=== PATIENT | female | born 1930 ===

== ENCOUNTER 2018-04-28 09:24 | Inpatient (IN) | payer MEDICAID, OTHER ==
[2018-04-28 10:41] LABS: BASO # 0.1 K/uL (0.0-0.2); BASO % 0.8 % (0.0-2.0); EOS # 0.2 K/uL (0.0-0.7); EOS % 3.1 % (0.0-4.0); LYMPH # 1.7 K/uL (1.0-4.3); LYMPH % 21.9 % (20.0-40.0); MEAN CELL VOLUME 72.2 fL (81.0-99.0); MEAN CORPUSCULAR HGB CONC 30.4 g/dL (33.0-37.0); MEAN PLATELET VOLUME 8.3 fL (7.2-11.7); MONO # 0.6 K/uL (0.0-0.8); MONO % 7.1 % (0.0-10.0); NEUT # 5.4 K/uL (1.8-7.0); NEUT % 67.1 % (50.0-75.0); NRBC % 0.1 % (0.0-2.0); RBC 4.76 Mil/uL (3.80-5.20)
[2018-04-28 10:51] LABS: ALB/GLOB RATIO 1.2 (1.0-2.1); ALBUMIN 3.5 g/dL (3.5-5.0); ALT/SGPT 44 U/L (9-52); AST/SGOT 29 U/L (14-36); BLOOD UREA NITROGEN 18 mg/dL (7-17); CALCIUM 8.5 mg/dl (8.6-10.4); GFR NON-AFRICAN AMERICAN > 60
[2018-04-28 10:57] LABS: HEMOGLOBIN 10.5 g/dL (11.0-16.0)
[2018-04-28 11:03] LABS: PROTHROMBIN TIME 11.1 SECONDS (9.7-12.2)
--- NOTE | 2018-04-28 11:10 | C.PDOC ---
History Of Present Illness 87 years old female with PMHx of goiter presents to ED for complaints of shortness of breath, high blood pressure and bladder incontinence that began 1 month ago. Patient's [id number], who are at the bedside, are contributing to the HPI. Patient denies chest pain, syncope, dizziness, palpitations, fever, chills, cough, n/v, abd pain. Family states patient has had a goiter since childhood "that has never given her any problems". [place] the [place]. Patient has been non-complaint with her medication (bystolic). Denies history of heart problems or any other physical complaints. Time Seen by Provider: 04/28/18 09:43 Chief Complaint (Nursing): High Blood Pressure History Per: Patient History/Exam Limitations: no limitations Onset/Duration Of Symptoms: Days Current Symptoms Are (Timing): Still Present Current Respiratory Medications: See Home Med List Recent travel outside of the [place]: No Past Medical History Reviewed: Historical Data, Nursing Documentation, Vital Signs Vital Signs: Last Vital Signs Temp 98.4 F 04/28/18 09:50 Pulse 95 H 04/28/18 10:56 Resp 20 04/28/18 09:50 BP 137/83 04/28/18 10:56 Pulse Ox 99 04/28/18 10:56 - Medical History PMH: HTN Surgical History: No Surg Hx Family History: States: No Known Family Hx - Social History Hx Alcohol Use: No Hx Substance Use: No - Immunization History Hx Tetanus Toxoid Vaccination: No Hx Influenza Vaccination: No Hx Pneumococcal Vaccination: No Review Of Systems Except As Marked, All Systems Reviewed And Found Negative. Respiratory: Positive for: Shortness of Breath Genitourinary: Positive for: Incontinence Physical Exam - Physical Exam Appears: Non-toxic, No Acute Distress Skin: Normal Color, Warm, Dry, No Rash Head: Atraumatic, Normacephalic Eye(s): bilateral: Normal Inspection, PERRL, EOMI Oral Mucosa: Moist Throat: Other (Goiter. No Thyroid bruit. ) Neck: Normal ROM, Supple Chest: Symmetrical, No Tenderness Cardiovascular: Rhythm Irregular (Tachycardic ) Respiratory: No Rales, No Rhonchi, No Wheezing, Other (Crackles at bases) Gastrointestinal/Abdominal: Soft, No Tenderness Extremity: Normal ROM, Pedal Edema Extremity: Bilateral: Normal ROM Pulses: Left Radial: Normal, Right Radial: Normal Neurological/Psych: Oriented x3, Normal Motor (5/5 strength ), Normal Sensation, Other (No focal deficits ) ED Course And Treatment - Laboratory Results Result Diagrams: 04/29/18 06:28 04/29/18 06:28 Lab Results: PT 11.1 SECONDS (9.7-12.2) 04/28/18 10:30 INR 1.0 04/28/18 10:30 APTT 26 SECONDS (21-34) 04/28/18 10:30 Total Bilirubin 0.8 mg/dL (0.2-1.3) 04/28/18 10:30 AST 29 U/L (14-36) 04/28/18 10:30 ALT 44 U/L (9-52) 04/28/18 10:30 Alkaline Phosphatase 98 U/L (38-126) 04/28/18 10:30 Total Protein 6.5 g/dL (6.3-8.3) 04/28/18 10:30 Albumin 3.5 g/dL (3.5-5.0) 04/28/18 10:30 Globulin 3.0 gm/dL (2.2-3.9) 04/28/18 10:30 Albumin/Globulin Ratio 1.2 (1.0-2.1) 04/28/18 10:30 Interpretation Of ECG: Atrial fibrillation at 102bpm. RVR. Normal intervals. T- wave inversion in lateral leads. O2 Sat by Pulse Oximetry: 99 (RA) Pulse Ox Interpretation: Normal - Other Rad CXR X-Ray: Viewed By Me, Read By Radiologist Interpretation: HISTORY: chest pain. COMPARISON: None available. TECHNIQUE: Chest, one view. FINDINGS: Examination limited by habitus and hypoinflation. Cardiomegaly. Numerous coarse calcifications evident in the soft tissues of the right neck and bilateral axilla. Additionally calculus calcifications are noted in the right lower neck/lung apex and right mediastinum. Right paratracheal mass is not excluded. Small right pleural effusion and associated consolidation. Mild pulmonary venous congestion. No definite pneumothorax. Please note that chest x-ray has limited sensitivity for the detection of pulmonary masses. Degenerative changes of the spine. Impression: Cardiomegaly. Numerous coarse calcifications evident in the soft tissues of the right neck and bilateral axilla. Additionally calculus calcifications are noted in the right lower neck/lung apex and right mediastinum. Right paratracheal mass is not excluded. Correlation with prior outside imaging recommended if available. CT of the chest with IV contrast suggested for further evaluation if indicated. Small right pleural effusion and associated consolidation. Mild pulmonary venous congestion. - CT Scan/US CT Chest Other Rad Studies (CT/US): Read By Radiologist, Radiology Report Reviewed CT/US Interpretation: IMPRESSION: No evidence of acute central pulmonary embolus. There is reflux of contrast material in the to the intrahepatic IVC and hepatic veins; rule out right heart strain. Slight dilatation right main pulmonary artery. Marked cardiomegaly. There is a moderate large right-sided effusion with atelectasis seen in the right lung base and middle lobe. Trace left-sided effusion. Spiculated pleural-based nodular density left lung apex with additional spiculated nodular density right lung apex with several additional small nodules. Possibility of underlying neoplasm not excluded. Consider follow-up PET-CT scan or biopsy for further evaluation. Markedly enlarged heterogeneous thyroid gland which results in compressive effects on the upper trachea as described. While these findings probably represent a large thyroid quarter, the possibility of underlying thyroid malignancy not excluded. Clinical correlation recommended. Medical Decision Making Medical Decision Making: Plan: * Cardizem * Blood work * EKG * CXR * Urinalysis O2 via nasal cannula EKG: * A-Fib with RBR at 124 bpm * Normal QRS * Normal QT * T wave inversions in lateral leads * No ST elevations Progress: Heart rate is 95 bpm after cardizem. TSA .17 Disposition Counseled Patient/Family Regarding: Studies Performed, Diagnosis - Disposition Disposition: HOSPITALIZED Disposition Time: 16:00 Condition: STABLE - POA Present On Arrival: None - Clinical Impression Clinical Impression: Thyroid goiter, Multiple lung nodules on CT, Dyspnea, Atrial fibrillation with RVR, Anemia - Scribe Statement The provider has reviewed the documentation as recorded by the Eva Garza All medical record entries made by the Sudhaibhardik were at my direction and personally dictated by me. I have reviewed the chart and agree that the record accurately reflects my personal performance of the history, physical exam, medic al decision making, and the department course for this patient. I have also personally directed, reviewed, and agree with the discharge instructions and disposition.
[2018-04-28 11:17] LABS: B-TYPE NATRIURETIC PEPTIDE 1190 pg/mL (0-900)
--- NOTE | 2018-04-28 11:21 | RAD ---
HISTORY: chest pain COMPARISON: None available TECHNIQUE: Chest, one view. FINDINGS: Examination limited by habitus and hypoinflation. Cardiomegaly. Numerous coarse calcifications evident in the soft tissues of the right neck and bilateral axilla. Additionally calculus calcifications are noted in the right lower neck/lung apex and right mediastinum. Right paratracheal mass is not excluded. Small right pleural effusion and associated consolidation. Mild pulmonary venous congestion. No definite pneumothorax. Please note that chest x-ray has limited sensitivity for the detection of pulmonary masses. Degenerative changes of the spine. Impression: Cardiomegaly. Numerous coarse calcifications evident in the soft tissues of the right neck and bilateral axilla. Additionally calculus calcifications are noted in the right lower neck/lung apex and right mediastinum. Right paratracheal mass is not excluded. Correlation with prior outside imaging recommended if available. CT of the chest with IV contrast suggested for further evaluation if indicated. Small right pleural effusion and associated consolidation. Mild pulmonary venous congestion.
[2018-04-28 11:55] LABS: SQUAMOUS EPITHIAL < 1 /hpf (0-5); URINE BACTERIA RARE (<OCC); URINE BILIRUBIN NEGATIVE (NEGATIVE); URINE BLOOD NEGATIVE (NEGATIVE); URINE CLARITY Clear (Clear); URINE COLOR Straw (YELLOW); URINE GLUCOSE (UA) NORMAL (Normal); URINE LEUKOCYTE ESTERASE 2+ Leu/uL (Negative); URINE PROTEIN NEGATIVE (NEGATIVE); URINE UROBILINOGEN NORMAL mg/dL (0.2-1.0)
[2018-04-28] MEDS ORDERED: Iodixanol 320 MG/ML 100 ML BOTTLE IV ONE (12:45)
--- NOTE | 2018-04-28 15:22 | CT ---
Date of service: 04/28/2018 PROCEDURE: CT Chest with contrast (Pulmonary Angiogram) HISTORY: SOB-elevated D-dimer COMPARISON: Made with chest radiograph 04/28/2017 obtained earlier same day. TECHNIQUE: Axial computed tomography images were obtained of the chest in the pulmonary arterial phase of enhancement. Coronal and sagittal reformatted images were created and reviewed. Intravenous contrast dose: 100 cc Visipaque 320 contrast material. Radiation dose: Total exam DLP = 576.68 mGy-cm. This CT exam was performed using one or more of the following dose reduction techniques: Automated exposure control, adjustment of the mA and/or kV according to patient size, and/or use of iterative reconstruction technique. FINDINGS: PULMONARY ARTERIES: The visualized pulmonary trunk, right and left main, lobar, segmental and proximal subsegmental branches of the pulmonary arteries are well opacified with no definitive filling defects seen to suggest acute central pulmonary embolus. Pulmonary trunk measures approximately 3.5 cm... There is mild localized dilatation of the mid aspect of the right main pulmonary artery which measures approximately 3.0 cm.. There is opacification of the IVC and hepatic veins; rule out right heart strain and pulmonary arterial hypertension. AORTA: No acute findings. No thoracic aortic aneurysm. Ascending thoracic aorta measures approximately 3.7 cm and descending thoracic aorta measures approximately 0.6 cm. Mild aortic atherosclerotic calcification or mural plaque present. LUNGS: As mentioned above, moderately large right-sided effusion associated with atelectasis in the right lung base and right middle lobe.. Minimal atelectasis-scarring changes left lung base. In addition, there is a localized nodular area of pleural thickening extends into the posterior aspect left lung apex with spiculated borders. Findings likely postinflammatory however the possibility of a scar carcinoma not excluded. Clinical correlation recommended.. There is a smaller nodular spiculated opacity in the right posterior lung apex associate with a tiny calcification. Additional small approximately 5 mm nodule right anterior lung apex which also exhibits spiculated borders. A 3rd 3.9 mm nodule located between these the 2 aforementioned lesions also present.. Follow-up biopsy or PET-CT scan if further evaluation is required to exclude neoplasm. There also appears to be a few small calcifications right lung base bordering the aforementioned hiatal hernia. These foci could be within the adjacent lung parenchyma and represent calcified granulomata however hyperdense lesions within the lumen of the stomach not excluded. PLEURA: There is a moderately large right sided pleural effusion.. Trace left-sided effusion. HEART: Heart is markedly enlarged. No significant no significant pericardial effusion. LYMPH NODES: There are multiple calcified mediastinal and hilar lymph nodes. The upper trachea is compressed and posterolaterally displaced to the left markedly enlarged heterogeneous thyroid gland that contains multiple ill-defined nodules exhibiting mixed hyperdense and low-density changes and scattered punctate and coarse calcifications. Possibility of thyroid carcinoma must be considered. Clinical correlation recommended. The mid and lower trachea midline and patent with no large central endoluminal lesions. There is a moderately large hiatal hernia with wall thickening of the distal esophagus likely due to protrusion of gastric mucosa however esophagitis or other intrinsic/invasive wall lesion not excluded. BONES, CHEST WALL: Minor multilevel degenerative spondylosis of the lower cervical thoracic and upper lumbar spine OTHER FINDINGS: Small calcification superior aspect right lobe liver. Hyperdense material is present within the gallbladder possibly representing hyperdense sludge or gravel. Follow-up gallbladder ultrasound could be performed for further evaluation if necessary There is a prominent approximately 3.5 x 2.6 cm left-sided parapelvic renal cyst. IMPRESSION: No evidence of acute central pulmonary embolus. There is reflux of contrast material in the to the intrahepatic IVC and hepatic veins; rule out right heart strain. Slight dilatation right main pulmonary artery. Marked cardiomegaly. There is a moderate large right-sided effusion with atelectasis seen in the right lung base and middle lobe. Trace left-sided effusion. Spiculated pleural-based nodular density left lung apex with additional spiculated nodular density right lung apex with several additional small nodules. Possibility of underlying neoplasm not excluded. Consider follow-up PET-CT scan or biopsy for further evaluation. Markedly enlarged heterogeneous thyroid gland which results in compressive effects on the upper trachea as described. While these findings probably represent a large thyroid quarter, the possibility of underlying thyroid malignancy not excluded. Clinical correlation recommended.
--- NOTE | 2018-04-28 16:04 | CARD ---
APPROVED REPORT Date of service: 04/28/2018 EKG Measurement Heart [id number] <Conclusion> Atrial fibrillation with rapid ventricular response Minimal voltage criteria for LVH, may be normal variant ST & T wave abnormality, consider lateral ischemia Abnormal ECG
--- NOTE | 2018-04-28 16:09 | CP.PCM.HP ---
<Crow Kemp - Last Filed: 04/28/18 16:54> History of Present Illness - History of Present Illness History of Present Illness: Crow Kemp PGY1 H&P for Dr. Fatima Pt is an 87yo [place] F with PMH HTN and thyroid goiter who presents to ED with shortness of breath for the past 2 weeks. She is with daughter at bedside who is translating. Daughter reports pt has been short of breath for 2 weeks, and it has gotten progressively worse. She reports shortness of breath at rest and with walking. She reports palptiations. She denies chest pain, dizziness, or loss of consciousness. She does report associated intermittent sweating. She denies weight loss, hair loss, diarrhea. She denies nausea, vomiting, dysuria. Daughter reports that pt lives at home with her and can perform ADLs on her own. She ambulates without difficulty at home. Daughter denies previous history of arrythmia in the patient PMH: HTN, thyroid goiter. SxH: denies SocH: denies tobacco, etoh, or recreational drug use FamH: denies Meds: bystolic 10mg BID, non compliant Allergies: NKDA PMD: Beny Present on Admission - Present on Admission Any Indicators Present on Admission: No Review of Systems - Review of Systems Review of Systems: as per HPI Past Patient History - Past Social History Smoking Status: Never Smoked - CARDIAC Hx Hypertension: Yes - PSYCHIATRIC Hx Substance Use: No - SURGICAL HISTORY Hx Surgeries: No - ANESTHESIA Hx Anesthesia: No Meds Allergies/Adverse Reactions: Allergies Allergy/AdvReac Type Severity Reaction Status Date / Time No Known Allergies Allergy Verified 04/28/18 10:06 Physical Exam - Constitutional Appears: Well, No Acute Distress - Head Exam Head Exam: ATRAUMATIC, NORMOCEPHALIC - Eye Exam Eye Exam: EOMI, PERRL Pupil Exam: NORMAL ACCOMODATION - ENT Exam ENT Exam: Mucous Membranes Moist - Neck Exam Neck exam: Positive for: Thyromegaly Additional comments: large goiter in anterior neck. non tender - Respiratory Exam Respiratory Exam: Decreased Breath Sounds, Clear to Auscultation Bilateral, NORMAL BREATHING PATTERN. absent: Rales, Rhonchi, Wheezes - Cardiovascular Exam Cardiovascular Exam: Irregular Rhythm, +S1, +S2, +S4. absent: Gallop, Rubs, Systolic Murmur - GI/Abdominal Exam GI & Abdominal Exam: Normal Bowel Sounds, Soft. absent: Distended, Firm, Tenderness - Extremities Exam Extremities exam: Positive for: normal inspection, pedal pulses present. Negative for: joint swelling, pedal edema, tenderness - Neurological Exam Neurological exam: Alert, CN II-XII Intact, Oriented x3, Reflexes Normal - Skin Skin Exam: Normal Color Results - Vital Signs Recent Vital Signs: Last Vital Signs Temp 98.4 F 04/28/18 09:50 Pulse 110 H 04/28/18 12:28 Resp 20 04/28/18 09:50 BP 140/101 H 04/28/18 12:28 Pulse Ox 99 04/28/18 15:23 - Labs Result Diagrams: 04/28/18 10:30 04/28/18 10:30 Labs: Laboratory Results - last 24 hr 04/28/18 04/28/18 04/28/18 10:30 10:30 10:30 WBC 8.0 RBC 4.76 Hgb 10.5 L Hct 34.4 MCV 72.2 L MCH 22.0 L MCHC 30.4 L RDW 18.0 H Plt Count 201 MPV 8.3 Neut % (Auto) 67.1 Lymph % (Auto) 21.9 [place] % (Auto) 7.1 Eos % (Auto) 3.1 Baso % (Auto) 0.8 Neut # (Auto) 5.4 Lymph # (Auto) 1.7 [place] # (Auto) 0.6 Eos # (Auto) 0.2 Baso # (Auto) 0.1 PT 11.1 INR 1.0 APTT 26 D-Dimer, Quantitative 936 H Sodium 139 Potassium 4.0 Chloride 102 Carbon Dioxide 30 Anion Gap 10 BUN 18 H Creatinine 0.5 L Est GFR ( Amer) > 60 Est GFR (Non-Af Amer) > 60 Random Glucose 104 Calcium 8.5 L Total Bilirubin 0.8 AST 29 ALT 44 Alkaline Phosphatase 98 Troponin I 0.0640 NT-Pro-B Natriuret Pep 1190 H Total Protein 6.5 Albumin 3.5 Globulin 3.0 Albumin/Globulin Ratio 1.2 TSH 3rd Generation 0.17 L Urine Color Urine Clarity Urine pH Ur Specific Mears Urine Protein Urine Glucose (UA) Urine Ketones Urine Blood Urine Nitrate Urine Bilirubin Urine Urobilinogen Ur Leukocyte Esterase Urine WBC (Auto) Urine RBC (Auto) Ur Squamous Epith Cells Urine Bacteria Urine Yeast (Budding) 04/28/18 11:20 WBC RBC Hgb Hct MCV MCH MCHC RDW Plt Count MPV Neut % (Auto) Lymph % (Auto) [place] % (Auto) Eos % (Auto) Baso % (Auto) Neut # (Auto) Lymph # (Auto) [place] # (Auto) Eos # (Auto) Baso # (Auto) PT INR APTT D-Dimer, Quantitative Sodium Potassium Chloride Carbon Dioxide Anion Gap BUN Creatinine Est GFR ( Amer) Est GFR (Non-Af Amer) Random Glucose Calcium Total Bilirubin AST ALT Alkaline Phosphatase Troponin I NT-Pro-B Natriuret Pep Total Protein Albumin Globulin Albumin/Globulin Ratio TSH 3rd Generation Urine Color Straw Urine Clarity Clear Urine pH 6.0 Ur Specific Mears 1.010 Urine Protein Negative Urine Glucose (UA) Normal Urine Ketones Negative Urine Blood Negative Urine Nitrate Negative Urine Bilirubin Negative Urine Urobilinogen Normal Ur Leukocyte Esterase 2+ H Urine WBC (Auto) 37 H Urine RBC (Auto) 2 Ur Squamous Epith Cells < 1 Urine Bacteria Rare Urine Yeast (Budding) Occ H Assessment & Plan - Assessment and Plan (Free Text) Assessment: 87yo [place] F with PMH HTN and thyroid goiter who presents to ED with shortness of breath for the past 2 weeks. Pt found to have rapid A.fib with low TSH. Pt admitted to ICU for new onset A.fib and thyroid goiter. Plan: Rapid A.fib - denies previous history - EKG: a. fib with RVR @124 - likely secondary to hyperthyroid - admit to tele - trop negative - cardizem drip @5 mg/hr - heparin drip low dose - lasix 40mg IVP stat - f/u rpt EKGs - f/u ECHO: suspect concerning findings for pericardial effusion - Cardio consulted, Dr. Vaibhav meza appreciated Thyroid Goiter - TSH 0.17 - f/u T3, free T4 - f/u rpt TSH - f/u US thyroid - methimazole 10mg PO TID - hydrocortisone 100mg IV stat and 50mg IV q8h as pt received contrast in setting of hyperthyroid - Endo consulted, Dr. Paulie meza appreciated Spiculated Masses in Lungs - pt with shortness of breath - CT angio: no PE. R-sided effusion with/ atelectasis. Spiculated pleural nodularity of L lung apex and R lung apex. - CXR: cardiomegaly. numerous coarse calcifications in R neck and b/l axilla. R paratracheal mass. - Pulm consulted, Dr. Wilfredo meza appreciated - Palliative care consulted, recs appreciated Elevated D-dimer - D-dimer 936 - BNP 1190 - trop negative - pt with shortness of breath - CT angio: no PE. R-sided effusion with/ atelectasis. Spiculated pleural nodularity of L lung apex and R lung apex. - Pulm consulted, Dr. Wilfredo meza appreciated PPX: GI: pepcid 20 BID DVT: heparin drip low dose HHD Pt seen and case reviewed with Dr. Fatima <Frankie Fatima - Last Filed: 04/28/18 17:36> Results - Vital Signs Recent Vital Signs: Last Vital Signs Temp 98.4 F 04/28/18 09:50 Pulse 110 H 04/28/18 12:28 Resp 20 04/28/18 09:50 BP 140/101 H 04/28/18 12:28 Pulse Ox 99 04/28/18 16:05 - Labs Result Diagrams: 04/28/18 10:30 04/28/18 10:30 Labs: Laboratory Results - last 24 hr 04/28/18 04/28/18 04/28/18 10:30 10:30 10:30 WBC 8.0 RBC 4.76 Hgb 10.5 L Hct 34.4 MCV 72.2 L MCH 22.0 L MCHC 30.4 L RDW 18.0 H Plt Count 201 MPV 8.3 Neut % (Auto) 67.1 Lymph % (Auto) 21.9 [place] % (Auto) 7.1 Eos % (Auto) 3.1 Baso % (Auto) 0.8 Neut # (Auto) 5.4 Lymph # (Auto) 1.7 [place] # (Auto) 0.6 Eos # (Auto) 0.2 Baso # (Auto) 0.1 PT 11.1 INR 1.0 APTT 26 D-Dimer, Quantitative 936 H Sodium 139 Potassium 4.0 Chloride 102 Carbon Dioxide 30 Anion Gap 10 BUN 18 H Creatinine 0.5 L Est GFR ( Amer) > 60 Est GFR (Non-Af Amer) > 60 Random Glucose 104 Calcium 8.5 L Total Bilirubin 0.8 AST 29 ALT 44 Alkaline Phosphatase 98 Troponin I 0.0640 NT-Pro-B Natriuret Pep 1190 H Total Protein 6.5 Albumin 3.5 Globulin 3.0 Albumin/Globulin Ratio 1.2 TSH 3rd Generation 0.17 L Urine Color Urine Clarity Urine pH Ur Specific Mears Urine Protein Urine Glucose (UA) Urine Ketones Urine Blood Urine Nitrate Urine Bilirubin Urine Urobilinogen Ur Leukocyte Esterase Urine WBC (Auto) Urine RBC (Auto) Ur Squamous Epith Cells Urine Bacteria Urine Yeast (Budding) 04/28/18 11:20 WBC RBC Hgb Hct MCV MCH MCHC RDW Plt Count MPV Neut % (Auto) Lymph % (Auto) [place] % (Auto) Eos % (Auto) Baso % (Auto) Neut # (Auto) Lymph # (Auto) [place] # (Auto) Eos # (Auto) Baso # (Auto) PT INR APTT D-Dimer, Quantitative Sodium Potassium Chloride Carbon Dioxide Anion Gap BUN Creatinine Est GFR ( Amer) Est GFR (Non-Af Amer) Random Glucose Calcium Total Bilirubin AST ALT Alkaline Phosphatase Troponin I NT-Pro-B Natriuret Pep Total Protein Albumin Globulin Albumin/Globulin Ratio TSH 3rd Generation Urine Color Straw Urine Clarity Clear Urine pH 6.0 Ur Specific Mears 1.010 Urine Protein Negative Urine Glucose (UA) Normal Urine Ketones Negative Urine Blood Negative Urine Nitrate Negative Urine Bilirubin Negative Urine Urobilinogen Normal Ur Leukocyte Esterase 2+ H Urine WBC (Auto) 37 H Urine RBC (Auto) 2 Ur Squamous Epith Cells < 1 Urine Bacteria Rare Urine Yeast (Budding) Occ H Attending/Attestation - Attestation I have personally seen and examined this patient.: Yes I have fully participated in the care of the patient.: Yes I have reviewed all pertinent clinical information: Yes Notes (Text): 04/28/18 17:26 Medical attending: Patient was seen and examined by me. Reviewed the above note by the resident This is a patient who family says has had this enlarged neck mass for about 10 years. She comes to the hospital short of breath. The only known history is that she has HTN. She is from [place] comes here 4 months prior There are some very concerning lab work and physical exam findings for the patient She has a goiter on exam, also TSH was low as well. We are still pending a T3 and T4. Patient was found to have rapid atrial fibrillation in ER. She received IV contrast and given our concern for hyperthyroidism my immediate concern is that she may have complications from the iodine load this later tonight. I spoke with cardiology as well as endocrinology and at this time will try hydrocortisone IV Q8hrs to prevent hyperthyroid ism from worsening. Also start on methimazole now and get a thyroid ultrasound. With reguards to her rapid atrial fibrillation - the patient will be on heparin ggt as well as cardizem ggt. I spoke with cardiology and we are ordering an echo since there are concerning cardiomegaly findings. Lasix 20 mg IV for the time being. CT scan was negative for PE, however also shows concerning bilateral apex spiculated areas that could be malignant. I spoke with the grandaughter at bedside as well as the patient's son and explained to them that considering her lab work findings and imaging that the patient's condition could worsen very quickly. It took me a while to get it across to them the seriousness of the situation. Spoke with ICU as well and they are evaluating as well. Frankie Fatima
[2018-04-28] MEDS ORDERED: MethylPREDNISolone 40 mg Vial IVP SCH (16:30)
[2018-04-28] MEDS ORDERED: Heparin25000 units/250ml 1/2NS 25,000 UNITS/250 ML BAG IV PRN (17:19)
--- NOTE | 2018-04-28 17:56 | CP.PCM.CON ---
<Disha Craven - Last Filed: 04/28/18 18:06> History of Present Illness - History of Present Illness History of Present Illness: ICU Consult Note for Dr. Ching CC: SOB x 2 weeks HPI: 87 y/o [place] female with PMHx of thyroid goiter and HTN presented to the ED with SOB x 2 weeks associated with palpitations. Patient without any PMHx of cardiac and pulm disease. Nothing like these symptoms have happened before and patient has never been in the ED nor has she ever been hospitalized. Last time she visited primary care physician, Dr. Swan, was 2 months ago. Patient diagnosed with Afib w/ RVR in the ED with HR 124. SOB and palpitations improved in the ED with lasix 20 mg IV x 1 and cardizem drip. Of note, upon questioning about the positive UA for infection, patient's granddaughter added that she has been having increased urinary frequency but not dysuria. Note: Patient's granddaughter assisted with history. Patient does not speak Danish. She also moved from [place] less than a year ago. ROS: as per HPI, otherwise 12 point ROS negative PMHx: as stated above PSH, social hx, FHx: none Meds: on bystolic 10 mg BID but non compliant Allergies: NKDA Past Patient History - Past Social History Smoking Status: Never Smoked - CARDIAC Hx Hypertension: Yes - PSYCHIATRIC Hx Substance Use: No - SURGICAL HISTORY Hx Surgeries: No - ANESTHESIA Hx Anesthesia: No Meds Allergies/Adverse Reactions: Allergies Allergy/AdvReac Type Severity Reaction Status Date / Time No Known Allergies Allergy Verified 04/28/18 10:06 - Medications Medications: Current Medications Famotidine (Pepcid) 20 mg PO BID [facility] Last Admin: 04/28/18 17:39 Dose: 20 mg Furosemide (Lasix) 20 mg IVP DAILY [facility] Hydrocortisone Sodium Succinate (Solu-Cortef) 50 mg IV Q8H [facility] Diltiazem HCl 125 mg/ Dextrose 125 mls @ 5 mls/hr IV .Q24H [facility]; Protocol Last Admin: 04/28/18 17:38 Dose: 5 mg/hr, 5 mls/hr Heparin Sodium/Sodium Chloride (Heparin 25766 Units/250ml 1/2 Normal Saline) 25,000 units in 250 mls @ 9.253 mls/hr IV .Q24H PRN; Protocol PRN Reason: PROTOCOL Last Admin: 04/28/18 17:35 Dose: 12 units/kg/hr, 9.253 mls/hr Ceftriaxone Sodium 1 gm/ (Sodium Chloride) 100 mls @ 100 mls/hr IVPB DAILY [facility]; Protocol Methimazole (Tapazole) 10 mg PO TID [facility] Last Admin: 04/28/18 17:39 Dose: 10 mg Propranolol HCl (Inderal) 20 mg PO TID [facility] Physical Exam - Constitutional Appears: Well, Non-toxic - Head Exam Head Exam: ATRAUMATIC, NORMAL INSPECTION, NORMOCEPHALIC - Eye Exam Eye Exam: EOMI, Normal appearance - Neck Exam Neck exam: Positive for: Thyromegaly (enlarged, non tender thyroid). Negative for: Meningismus, Normal Inspection, Tenderness - Respiratory Exam Respiratory Exam: Rhonchi, Wheezes. absent: Accessory Muscle Use, Clear to Auscultation Bilateral - Cardiovascular Exam Cardiovascular Exam: Irregular Rhythm, Systolic Murmur - GI/Abdominal Exam GI & Abdominal Exam: Normal Bowel Sounds, Soft. absent: Firm, Guarding, Rebound, Tenderness (no suprapubic tenderness, negative CVA tenderness) - Extremities Exam Extremities exam: Positive for: normal capillary refill. Negative for: normal inspection, tenderness Additional comments: bilateral 2+ LE pitting edema - Neurological Exam Additional comments: patient ambulates with cane baseline per granddaughter - Psychiatric Exam Psychiatric exam: Normal Affect, Normal Mood - Skin Skin Exam: Dry, Normal Color, Warm Results - Vital Signs Recent Vital Signs: Last Vital Signs Temp 98.4 F 04/28/18 09:50 Pulse 110 H 04/28/18 12:28 Resp 20 04/28/18 09:50 BP 135/90 04/28/18 17:38 Pulse Ox 99 04/28/18 16:05 - Labs Result Diagrams: 04/28/18 10:30 04/28/18 10:30 Labs: Laboratory Results - last 24 hr 04/28/18 04/28/18 04/28/18 10:30 10:30 10:30 WBC 8.0 RBC 4.76 Hgb 10.5 L Hct 34.4 MCV 72.2 L MCH 22.0 L MCHC 30.4 L RDW 18.0 H Plt Count 201 MPV 8.3 Neut % (Auto) 67.1 Lymph % (Auto) 21.9 [place] % (Auto) 7.1 Eos % (Auto) 3.1 Baso % (Auto) 0.8 Neut # (Auto) 5.4 Lymph # (Auto) 1.7 [place] # (Auto) 0.6 Eos # (Auto) 0.2 Baso # (Auto) 0.1 PT 11.1 INR 1.0 APTT 26 D-Dimer, Quantitative 936 H Sodium 139 Potassium 4.0 Chloride 102 Carbon Dioxide 30 Anion Gap 10 BUN 18 H Creatinine 0.5 L Est GFR ( Amer) > 60 Est GFR (Non-Af Amer) > 60 Random Glucose 104 Calcium 8.5 L Total Bilirubin 0.8 AST 29 ALT 44 Alkaline Phosphatase 98 Troponin I 0.0640 NT-Pro-B Natriuret Pep 1190 H Total Protein 6.5 Albumin 3.5 Globulin 3.0 Albumin/Globulin Ratio 1.2 TSH 3rd Generation 0.17 L Urine Color Urine Clarity Urine pH Ur Specific [place] Urine Protein Urine Glucose (UA) Urine Ketones Urine Blood Urine Nitrate Urine Bilirubin Urine Urobilinogen Ur Leukocyte Esterase Urine WBC (Auto) Urine RBC (Auto) Ur Squamous Epith Cells Urine Bacteria Urine Yeast (Budding) 04/28/18 11:20 WBC RBC Hgb Hct MCV MCH MCHC RDW Plt Count MPV Neut % (Auto) Lymph % (Auto) [place] % (Auto) Eos % (Auto) Baso % (Auto) Neut # (Auto) Lymph # (Auto) [place] # (Auto) Eos # (Auto) Baso # (Auto) PT INR APTT D-Dimer, Quantitative Sodium Potassium Chloride Carbon Dioxide Anion Gap BUN Creatinine Est GFR ( Amer) Est GFR (Non-Af Amer) Random Glucose Calcium Total Bilirubin AST ALT Alkaline Phosphatase Troponin I NT-Pro-B Natriuret Pep Total Protein Albumin Globulin Albumin/Globulin Ratio TSH 3rd Generation Urine Color Straw Urine Clarity Clear Urine pH 6.0 Ur Specific [place] 1.010 Urine Protein Negative Urine Glucose (UA) Normal Urine Ketones Negative Urine Blood Negative Urine Nitrate Negative Urine Bilirubin Negative Urine Urobilinogen Normal Ur Leukocyte Esterase 2+ H Urine WBC (Auto) 37 H Urine RBC (Auto) 2 Ur Squamous Epith Cells < 1 Urine Bacteria Rare Urine Yeast (Budding) Occ H Assessment & Plan - Assessment and Plan (Free Text) Assessment: 87 y/o [place] female with PMHx of thyroid goiter and HTN presented to the ED with SOB and palpitations x 2 weeks. Diagnosed with Afib in the ED and admitted to ICU overnight for observation. neuro -AAO x 3 -no acute issues CV -Afib w/ RVR in ED and EKG 124 bpm. Afib can be 2/2 pre-existing thyroid disorder -currently on cardizem and heparin drip -s/p IV lasix 20 mg x 1 -continue with lasix daily; lasix 40 mg IV BID ordered -patient's signs and symptoms likely 2/2 CHF - will also need to monitor IOs/daily weights closely. BNP elevated at 1190. Trop negative. -f/u ECHO -CT angio: negative for PE however d-dimer slightly elevated 936 (for her age positive d-dimer >860) -cardio consult Dr. Esposito, recs appreciated Pulm -CT angio: pleural nodularity in bilateral apices, CXR: cardiomegaly -patient w/o hx of smoking. Edema, congestion and SOB likely 2/2 HFrEF -pulm consult susana Ochoa appreciated Endo -TSH low 0.17 -f/u T3 and T4 -f/u thyroid US -s/p IV contrast - given hydrocortisone 100 mg IV x 1 -hydrocortisone 50 mg IV q8h daily prescribed already -methimazole 10 mg TID prescribed already -Endo, Dr. Apodaca consulted. Recs appreciated. ID -Currently afebrile and no leukocytosis, continue to monitor -Patient UA with 2+ leuk est, WBC and occ yeast. Upon questioning patient endorses increased urinary frequency -ceftriaxone 1g daily, start today Heme -no acute issues -f/u CBC qAM GI -no acute issues GI ppx: pepcid 20 mg PO BID DVT ppx: therapeutic heparin drip (cardiac) case discussed with Dr. Humza Craven PGY1 <Deja Ching - Last Filed: 04/28/18 20:31> History of Present Illness - History of Present Illness History of Present Illness: Addendum: I spoke to the patient. I seen the patient with resident in the intensive care unit. Also I saw the patient in the emergency room. Patient heart rate is controlled well. I agree with resident note. We will closely monitor the patient for possible thyroid storm. Patient has a goiter large. Patient was given intravenous iodine contrast. We will follow the patient by the ICU team Meds - Medications Medications: Current Medications Acetaminophen (Tylenol 325mg Tab) 650 mg PO Q6 PRN PRN Reason: fever+pain Famotidine (Pepcid) 20 mg PO BID [facility] Last Admin: 04/28/18 17:39 Dose: 20 mg Furosemide (Lasix) 20 mg IVP DAILY [facility] Hydrocortisone Sodium Succinate (Solu-Cortef) 50 mg IV Q8H [facility] Diltiazem HCl 125 mg/ Dextrose 125 mls @ 5 mls/hr IV .Q24H [facility]; Protocol Last Titration: 04/28/18 18:36 Dose: 10 mg/hr, 10 mls/hr Heparin Sodium/Sodium Chloride (Heparin 53357 Units/250ml 1/2 Normal Saline) 25,000 units in 250 mls @ 9.253 mls/hr IV .Q24H PRN; Protocol PRN Reason: PROTOCOL Last Admin: 04/28/18 17:35 Dose: 12 units/kg/hr, 9.253 mls/hr Ceftriaxone Sodium 1 gm/ (Sodium Chloride) 100 mls @ 100 mls/hr IVPB Q24H [facility]; Protocol Last Admin: 04/28/18 19:41 Dose: 100 mls/hr Methimazole (Tapazole) 10 mg PO TID [facility] Last Admin: 04/28/18 17:39 Dose: 10 mg Propranolol HCl (Inderal) 20 mg PO TID [facility] Last Admin: 04/28/18 19:41 Dose: 20 mg Results - Vital Signs Recent Vital Signs: Last Vital Signs Temp 98 F 04/28/18 17:58 Pulse 130 H 04/28/18 17:58 Resp 23 04/28/18 17:58 BP 154/118 H 04/28/18 17:58 Pulse Ox 100 04/28/18 17:58 - Labs Result Diagrams: 04/28/18 10:30 04/28/18 10:30 Labs: Laboratory Results - last 24 hr 04/28/18 04/28/18 04/28/18 10:30 10:30 10:30 WBC 8.0 RBC 4.76 Hgb 10.5 L Hct 34.4 MCV 72.2 L MCH 22.0 L MCHC 30.4 L RDW 18.0 H Plt Count 201 MPV 8.3 Neut % (Auto) 67.1 Lymph % (Auto) 21.9 [place] % (Auto) 7.1 Eos % (Auto) 3.1 Baso % (Auto) 0.8 Neut # (Auto) 5.4 Lymph # (Auto) 1.7 [place] # (Auto) 0.6 Eos # (Auto) 0.2 Baso # (Auto) 0.1 PT 11.1 INR 1.0 APTT 26 D-Dimer, Quantitative 936 H Sodium 139 Potassium 4.0 Chloride 102 Carbon Dioxide 30 Anion Gap 10 BUN 18 H Creatinine 0.5 L Est GFR ( Amer) > 60 Est GFR (Non-Af Amer) > 60 Random Glucose 104 Calcium 8.5 L Total Bilirubin 0.8 AST 29 ALT 44 Alkaline Phosphatase 98 Troponin I 0.0640 NT-Pro-B Natriuret Pep 1190 H Total Protein 6.5 Albumin 3.5 Globulin 3.0 Albumin/Globulin Ratio 1.2 Free T4 Total T3 TSH 3rd Generation 0.17 L Urine Color Urine Clarity Urine pH Ur Specific [place] Urine Protein Urine Glucose (UA) Urine Ketones Urine Blood Urine Nitrate Urine Bilirubin Urine Urobilinogen Ur Leukocyte Esterase Urine WBC (Auto) Urine RBC (Auto) Ur Squamous Epith Cells Urine Bacteria Urine Yeast (Budding) 04/28/18 04/28/18 04/28/18 11:20 17:22 17:22 WBC RBC Hgb Hct MCV MCH MCHC RDW Plt Count MPV Neut % (Auto) Lymph % (Auto) [place] % (Auto) Eos % (Auto) Baso % (Auto) Neut # (Auto) Lymph # (Auto) [place] # (Auto) Eos # (Auto) Baso # (Auto) PT INR APTT D-Dimer, Quantitative Sodium Potassium Chloride Carbon Dioxide Anion Gap BUN Creatinine Est GFR ( Amer) Est GFR (Non-Af Amer) Random Glucose Calcium Total Bilirubin AST ALT Alkaline Phosphatase Troponin I NT-Pro-B Natriuret Pep Total Protein Albumin Globulin Albumin/Globulin Ratio Free T4 1.15 Total T3 1.90 TSH 3rd Generation Urine Color Straw Urine Clarity Clear Urine pH 6.0 Ur Specific [place] 1.010 Urine Protein Negative Urine Glucose (UA) Normal Urine Ketones Negative Urine Blood Negative Urine Nitrate Negative Urine Bilirubin Negative Urine Urobilinogen Normal Ur Leukocyte Esterase 2+ H Urine WBC (Auto) 37 H Urine RBC (Auto) 2 Ur Squamous Epith Cells < 1 Urine Bacteria Rare Urine Yeast (Budding) Occ H
--- NOTE | 2018-04-28 23:44 | CP.PCM.CON ---
Past Patient History - Past Medical History & Family History Past Medical History?: Yes - Past Social History Smoking Status: Never Smoked - CARDIAC Hx Hypertension: Yes - ENDOCRINE/METABOLIC Other/Comment: goiter - MUSCULOSKELETAL/RHEUMATOLOGICAL Hx Falls: No - PSYCHIATRIC Hx Substance Use: No - SURGICAL HISTORY Hx Surgeries: No - ANESTHESIA Hx Anesthesia: No Has any member of the family had a problem w/ anesthesia?: No Meds Allergies/Adverse Reactions: Allergies Allergy/AdvReac Type Severity Reaction Status Date / Time No Known Allergies Allergy Verified 04/28/18 10:06 - Medications Medications: Current Medications Acetaminophen (Tylenol 325mg Tab) 650 mg PO Q6 PRN PRN Reason: fever+pain Famotidine (Pepcid) 20 mg PO BID [facility] Last Admin: 04/28/18 17:39 Dose: 20 mg Furosemide (Lasix) 20 mg IVP DAILY [facility] Hydrocortisone Sodium Succinate (Solu-Cortef) 50 mg IV Q8H [facility] Diltiazem HCl 125 mg/ Dextrose 125 mls @ 5 mls/hr IV .Q24H [facility]; Protocol Last Titration: 04/28/18 18:36 Dose: 10 mg/hr, 10 mls/hr Heparin Sodium/Sodium Chloride (Heparin 02016 Units/250ml 1/2 Normal Saline) 25,000 units in 250 mls @ 9.253 mls/hr IV .Q24H [facility]; Protocol PRN Reason: PROTOCOL Last Admin: 04/28/18 17:35 Dose: 12 units/kg/hr, 9.253 mls/hr Ceftriaxone Sodium 1 gm/ (Sodium Chloride) 100 mls @ 100 mls/hr IVPB Q24H [facility]; Protocol Last Admin: 04/28/18 19:41 Dose: 100 mls/hr Influenza Virus Vaccine (Flucelvax Quad [id number] Syr) 60 mcg IM .ONCE ONE Stop: 04/30/18 10:01 Methimazole (Tapazole) 10 mg PO TID [facility] Last Admin: 04/28/18 17:39 Dose: 10 mg Pneumococcal Polyvalent Vaccine (Pneumovax 23 Vaccine) 0.5 ml IM .ONCE ONE Stop: 04/30/18 10:01 Propranolol HCl (Inderal) 20 mg PO TID [facility] Last Admin: 04/28/18 19:41 Dose: 20 mg Results - Vital Signs Recent Vital Signs: Last Vital Signs Temp 97.9 F 04/28/18 19:30 Pulse 81 04/28/18 22:50 Resp 21 04/28/18 22:50 BP 124/84 04/28/18 22:30 Pulse Ox 96 04/28/18 22:50 - Labs Result Diagrams: 04/28/18 10:30 04/28/18 10:30 Labs: Laboratory Results - last 24 hr 04/28/18 04/28/18 04/28/18 10:30 10:30 10:30 WBC 8.0 RBC 4.76 Hgb 10.5 L Hct 34.4 MCV 72.2 L MCH 22.0 L MCHC 30.4 L RDW 18.0 H Plt Count 201 MPV 8.3 Neut % (Auto) 67.1 Lymph % (Auto) 21.9 [place] % (Auto) 7.1 Eos % (Auto) 3.1 Baso % (Auto) 0.8 Neut # (Auto) 5.4 Lymph # (Auto) 1.7 [place] # (Auto) 0.6 Eos # (Auto) 0.2 Baso # (Auto) 0.1 PT 11.1 INR 1.0 APTT 26 D-Dimer, Quantitative 936 H Sodium 139 Potassium 4.0 Chloride 102 Carbon Dioxide 30 Anion Gap 10 BUN 18 H Creatinine 0.5 L Est GFR ( Amer) > 60 Est GFR (Non-Af Amer) > 60 Random Glucose 104 Calcium 8.5 L Total Bilirubin 0.8 AST 29 ALT 44 Alkaline Phosphatase 98 Troponin I 0.0640 NT-Pro-B Natriuret Pep 1190 H Total Protein 6.5 Albumin 3.5 Globulin 3.0 Albumin/Globulin Ratio 1.2 Free T4 Total T3 TSH 3rd Generation 0.17 L Urine Color Urine Clarity Urine pH Ur Specific [place] Urine Protein Urine Glucose (UA) Urine Ketones Urine Blood Urine Nitrate Urine Bilirubin Urine Urobilinogen Ur Leukocyte Esterase Urine WBC (Auto) Urine RBC (Auto) Ur Squamous Epith Cells Urine Bacteria Urine Yeast (Budding) 04/28/18 04/28/18 04/28/18 11:20 17:22 17:22 WBC RBC Hgb Hct MCV MCH MCHC RDW Plt Count MPV Neut % (Auto) Lymph % (Auto) [place] % (Auto) Eos % (Auto) Baso % (Auto) Neut # (Auto) Lymph # (Auto) [place] # (Auto) Eos # (Auto) Baso # (Auto) PT INR APTT D-Dimer, Quantitative Sodium Potassium Chloride Carbon Dioxide Anion Gap BUN Creatinine Est GFR ( Amer) Est GFR (Non-Af Amer) Random Glucose Calcium Total Bilirubin AST ALT Alkaline Phosphatase Troponin I NT-Pro-B Natriuret Pep Total Protein Albumin Globulin Albumin/Globulin Ratio Free T4 1.15 Total T3 1.90 TSH 3rd Generation Urine Color Straw Urine Clarity Clear Urine pH 6.0 Ur Specific [place] 1.010 Urine Protein Negative Urine Glucose (UA) Normal Urine Ketones Negative Urine Blood Negative Urine Nitrate Negative Urine Bilirubin Negative Urine Urobilinogen Normal Ur Leukocyte Esterase 2+ H Urine WBC (Auto) 37 H Urine RBC (Auto) 2 Ur Squamous Epith Cells < 1 Urine Bacteria Rare Urine Yeast (Budding) Occ H
--- NOTE | 2018-04-29 06:06 | CON ---
DATE: 04/28/2018 ENDOCRINOLOGY CONSULTATION LOCATION: ICU room 12. HISTORY OF PRESENT ILLNESS: This is an 87-year-old female with known history of a multinodular goiter and longstanding hypertension, presenting here with progressive shortness of breath and evaluated to be in congestive heart failure with supervening rapid atrial fibrillation and is now being referred for endocrine evaluation because of abnormal thyroid function studies. PAST MEDICAL HISTORY: As mentioned above, history of hypertension, on Bystolic medications; also a history of multinodular goiter and has not been on any kind of thyroid medication as per the family. FAMILY HISTORY: No known thyroid endocrinopathy. Positive for hypertension and heart disease. SOCIAL HISTORY: The patient has a supportive family. She actually immigrated from [place] and lives with her daughter at this time. No known substance use. REVIEW OF SYSTEMS: Admits to progressive bouts of dizziness and lightheadedness, worse on the day of admission with generalized body weakness and suboptimal energy level. Also admits to marked insomnia and disruptive sleep patterns. Also admits to precordial chest pain with episodic bouts of palpitations and progressive shortness of breath with paroxysmal nocturnal dyspnea. Her oral intake has been variable with nausea, dyspepsia, and hyperdefecation. PHYSICAL EXAMINATION: GENERAL: This is an average-built female, in no apparent distress. VITAL SIGNS: With a blood pressure of 160/100, pulse of 110 beats per minute and irregular, temperature 98, respirations 20. Height is 5 feet 5 inches. Weight is 170 pounds. HEENT: Head is normocephalic. Eyes anicteric with pink conjunctivae. Funduscopy is not possible at this time. Ears, nose, and throat otherwise normal. NECK: Supple. Thyroid gland shows nodular thyromegaly, which is firm and nontender of moderate dimension as noted. HEART: Hyperdynamic precordium. S1 and S2 are rapid and irregular. LUNGS: Show scattered rhonchi. ABDOMEN: Flat, soft with positive bowel sounds. EXTREMITIES: No peripheral edema. Pulses are +2 bilaterally. LABORATORY DATA: TSH is 0.17 with free T4 of 1.15. Chemistries: BUN of 18, sodium 139, potassium 4, chloride 102, CO2 of 30, glucose 104, creatinine 0.5. ProBNP is 1190. ASSESSMENT: This is an 87-year-old female with overt thyrotoxicosis noted both historically, clinically and biochemically with an underlying multinodular goiter, presenting here with congestive heart failure and supervening rapid atrial fibrillation as noted thereof. PLAN OF MANAGEMENT: We will go ahead and initiate medical therapy with given as 10 mg p.o. t.i.d. as ordered. We will empirically start her also with IV steroids, which will also inhibit the T4 to T3 conversion as noted. We will obtain serial thyroid studies and adjust the dose regimen accordingly. A total T4 or thyroxine level is more accurate marker to assess the degree of hyperthyroidism. We will obtain serial chemistries and supplement accordingly as needed. We will also obtain a thyroid-stimulating immunoglobulin which will confirm and/or indicate the presence of underlying autoimmune thyroiditis, and we will also add a thyroid peroxidase antibody as ordered. A thyroid ultrasound has also been ordered which will fully delineate the thyroid lobe dimensions. We will follow and advise accordingly. Nicole Apodaca MD
[2018-04-29 06:48] LABS: BASO % 0.1 % (0.0-2.0); HEMOGLOBIN 9.8 g/dL (11.0-16.0); LYMPH # 0.6 K/uL (1.0-4.3); LYMPH % 10.6 % (20.0-40.0); MEAN CELL VOLUME 71.6 fL (81.0-99.0); MEAN CORPUSCULAR HEMOGLOBIN 21.4 pg (27.0-31.0); MEAN PLATELET VOLUME 9.1 fL (7.2-11.7); MONO # 0.1 K/uL (0.0-0.8); MONO % 1.2 % (0.0-10.0); NEUT % 88.1 % (50.0-75.0); NRBC % 0.2 % (0.0-2.0); RBC 4.57 Mil/uL (3.80-5.20); WHITE BLOOD COUNT 5.7 K/uL (4.8-10.8)
[2018-04-29 07:13] LABS: IRON 20 ug/dL (37-170)
[2018-04-29 07:16] LABS: ALB/GLOB RATIO 1.2 (1.0-2.1); ALBUMIN 3.2 g/dL (3.5-5.0); ALT/SGPT 34 U/L (9-52); AST/SGOT 31 U/L (14-36); BLOOD UREA NITROGEN 19 mg/dL (7-17); CALCIUM 8.3 mg/dl (8.6-10.4); GFR NON-AFRICAN AMERICAN > 60
[2018-04-29 07:22] LABS: % IRON SATURATION 5 (20-55); TOTAL IRON BINDING CAPACITY 393 ug/dL (250-450)
[2018-04-29 07:33] LABS: T4 7.77 ug/dL (5.5-11.0)
[2018-04-29 07:49] LABS: FERRITIN 10.9 ng/mL
--- NOTE | 2018-04-29 09:26 | CP.PCM.PN ---
Subjective - Date & Time of Evaluation Date of Evaluation: 04/29/18 Time of Evaluation: 09:00 - Subjective Subjective: Patient was angry and yelling at family members at bedside. She was not cooperative with me try to do examination. As mentioned previously this is an 87 year old female who came with shortness of breath and found to have Atrial fibrillation with RVR. The patient was found to have a low TSH and today has an even lower TSH. There is a large mass over neck with some areas being very solid on palpation and other areas soft. Imaging also shows there is spiculated nodules/lesions on the lungs as well as cardiomegaly. She remains on heparin ggt this morning as well as cardizem ggt. On application packager the HR is in the 90s irregularly irregular. She just had the thyroid U/S this morning. Pending echo at the moment. Because the patient received IV contrast in the ER given potential thyroid disease - she has already been getting IV steroid, PO Inderall, and Tapazole. Objective - Vital Signs/Intake and Output Vital Signs (last 24 hours): Temp Pulse Resp BP Pulse Ox 97.5 F L 83 20 123/68 97 04/29/18 08:00 04/29/18 08:31 04/29/18 08:31 04/29/18 08:00 04/29/18 08:31 Intake and Output: 04/29/18 04/29/18 06:59 18:59 Intake Total 744.6 143.2 Output Total 1150 Balance -405.4 143.2 - Medications Medications: Current Medications Acetaminophen (Tylenol 325mg Tab) 650 mg PO Q6 PRN PRN Reason: fever+pain Famotidine (Pepcid) 20 mg PO BID [facility] Last Admin: 04/28/18 17:39 Dose: 20 mg Furosemide (Lasix) 20 mg IVP DAILY [facility] Hydrocortisone Sodium Succinate (Solu-Cortef) 50 mg IV Q8H [facility] Last Admin: 04/28/18 23:44 Dose: 50 mg Diltiazem HCl 125 mg/ Dextrose 125 mls @ 5 mls/hr IV .Q24H [facility]; Protocol Last Admin: 04/29/18 06:35 Dose: 10 mg/hr, 10 mls/hr Heparin Sodium/Sodium Chloride (Heparin 57548 Units/250ml 1/2 Normal Saline) 25,000 units in 250 mls @ 9.253 mls/hr IV .Q24H PRN; Protocol PRN Reason: PROTOCOL Last Titration: 04/29/18 02:30 Dose: 15 units/kg/hr, 11.567 mls/hr Ceftriaxone Sodium 1 gm/ (Sodium Chloride) 100 mls @ 100 mls/hr IVPB Q24H [facility]; Protocol Last Admin: 04/28/18 19:41 Dose: 100 mls/hr Influenza Virus Vaccine (Flucelvax Quad [id number] Syr) 60 mcg IM .ONCE ONE Stop: 04/30/18 10:01 Methimazole (Tapazole) 10 mg PO TID [facility] Last Admin: 04/28/18 17:39 Dose: 10 mg Pneumococcal Polyvalent Vaccine (Pneumovax 23 Vaccine) 0.5 ml IM .ONCE ONE Stop: 04/30/18 10:01 Propranolol HCl (Inderal) 20 mg PO TID [facility] Last Admin: 04/28/18 19:41 Dose: 20 mg - Labs Labs: 04/29/18 06:28 04/29/18 06:28 PT 11.1 SECONDS (9.7-12.2) 04/28/18 10:30 INR 1.0 04/28/18 10:30 APTT 185 SECONDS (21-34) H* D 04/29/18 08:40 - Constitutional Appears: Agitated, Chronically Ill - Head Exam Head Exam: NORMAL INSPECTION - Neck Exam Neck Exam: Thyromegaly. absent: Lymphadenopathy, Normal Inspection, Tenderness Additional comments: Goiter - some areas are very rock solid on palpation. Some areas soft Non tender - Respiratory Exam Respiratory Exam: Clear to Ausculation Bilateral, NORMAL BREATHING PATTERN - Cardiovascular Exam Cardiovascular Exam: Irregular Rhythm Additional comments: Irregular irregular - GI/Abdominal Exam GI & Abdominal Exam: Soft, Normal Bowel Sounds. absent: Distended, Firm, Guarding, Rigid, Tenderness - Neurological Exam Neurological Exam: Alert, Awake, Oriented x3 Neuro motor strength exam: Left Upper Extremity: 5, Right Upper Extremity: 5 - Psychiatric Exam Psychiatric exam: Agitated, Anxious - Skin Skin Exam: Normal Color, Warm Assessment and Plan - Assessment and Plan (Free Text) Assessment: 87yo Iranian F with PMH HTN and thyroid goiter who presents to ED with shortness of breath for the past 2 weeks. Pt found to have rapid A.fib with low TSH. Pt admitted to ICU for new onset A.fib and thyroid goiter. Plan: Rapid A.fib 04/29: Today on telemetry HR has been in the 90s. Remains in atrial fibrillation. Remains on cardizem ggt at this moment. Pending echo, because of the cardiomegaly on CXRAY concern for potential pericardial effusion especially if she has had thyroid disease for a long time. On a heparin ggt for anticoagulation Thyroid Goiter, hard masses on palpation 04/29: TSH is lower today 0.04 Thyroid U/S result pending Has been getting IV steroid and Tapazole PO, Inderall - patient received IV contrast in ER - TSH 0.17 - f/u T3, free T4 - f/u rpt TSH - f/u US thyroid - methimazole 10mg PO TID - hydrocortisone 100mg IV stat and 50mg IV q8h as pt received contrast in setting of hyperthyroid - Endo consulted, Dr. Paulie meza appreciated Spiculated Masses in Lungs 04/29: Concern for potential malignancy/metastatsis - CT angio: no PE. R-sided effusion with/ atelectasis. Spiculated pleural nodularity of L lung apex and R lung apex. - CXR: cardiomegaly. numerous coarse calcifications in R neck and b/l axilla. R paratracheal mass. - Pulm consulted, Dr. Wilfredo meza appreciated - Palliative care consulted, recs appreciated Elevated D-dimer - D-dimer 936 - BNP 1190 - trop negative - pt with shortness of breath - CT angio: no PE. R-sided effusion with/ atelectasis. Spiculated pleural nodularity of L lung apex and R lung apex. - Pulm consulted, Dr. Wilfredo meza appreciated PPX: GI: pepcid 20 BID DVT: heparin drip low dose HHD
--- NOTE | 2018-04-29 11:24 | US ---
Date of service: 04/28/2018 HISTORY: pt with thyroid goiter TECHNIQUE: Sonographic evaluation of the thyroid gland. COMPARISON: None. FINDINGS: RIGHT LOBE: Measures 6.7 x 9.3 x 11.9 cm. Markedly enlarged heterogeneous gland. Nodules: 1. Midpole nodule obscured by calcified rim measures 2.8 x 2.6 cm. 2. Solid partially calcified nodule midpole upper pole region 2.6 x 3.1 x 2.6 cm. 3. Complex primarily solid nodule with cystic components upper pole 2.6 x 3.83.2 cm. Solid nodule anteriorly impressing upon the trachea measures 3.4 x 6.5 x 6.8 cm. LEFT LOBE: Measures 4.5 x 4.9 x 8.1 cm. Markedly enlarged heterogeneous gland unremarkable flow. Nodules: 1. Midpole nodule solid with cystic components 3 x 3.6 x 4.3 cm. 2. Complex primarily solid nodule upper pole 1.6 x 1.3 x 1.95 cm. 3. Exophytic posterior lower pole nodule 2 x 1.8 x 2.7 cm. ISTHMUS: Not visible. OTHER FINDINGS: None . IMPRESSION: Markedly enlarged heterogeneous gland with multiple (6) thyroid nodules. Recommendations for follow-up: 1. Radionuclide Scan to assess Thyroid function and to evaluate the thyroid for the presence of hot or cold nodules. 2. Fine needle aspiration (FNA) should also be considered as an invasive diagnostic tool in the assessment of findings described above.
--- NOTE | 2018-04-29 11:44 | CP.CCUPN ---
<Nina Kirby - Last Filed: 04/29/18 11:41> CCU Subjective - Physician Review Subjective (Free Text): 04/29/18 11:41 Critical Care Progress Note for Dr. Villalobos's service Patient seen and examined at bedside. Patient offers no acute complaints. Patient denies fevers, chills, chest pain, sob, n/v, constipation or diarrhea, and dysuria. Patient [id number] was at bedside. Discussion was had to elaborate on thyroid and lung condition. [id number] stated that they would want comfort measure for the patient. Pending conversation with son to discuss full goals of care. CCU Objective - Vital Signs / Intake & Output Vital Signs (Last 4 hours): Vital Signs Temp Pulse Resp BP Pulse Ox 04/29/18 11:00 88 28 H 146/89 91 L 04/29/18 10:00 84 22 166/83 H 99 04/29/18 09:54 166/68 H 04/29/18 09:00 82 21 125/82 97 04/29/18 08:31 83 20 97 04/29/18 08:00 97.5 F L 89 19 123/68 98 Intake and Output (Last 8hrs): Intake & Output 04/28/18 04/29/18 04/29/18 22:59 06:59 14:59 Intake Total 388.7 362.9 249.5 Output Total 800 350 Balance -411.3 12.9 249.5 Intake: IV 17 196 87 Intake, IV Amount 171.7 166.9 62.5 left ac 30 80 30 left ac 2nd port 100 right ac 41.7 86.9 32.5 Oral 200 100 Output: Urine 800 350 Urine, Voided 800 350 - Physical Exam Head: Positive for: Atraumatic, Normocephalic Pupils: Positive for: PERRL Extroacular Muscles: Positive for: EOMI Mouth: Positive for: Moist Mucous Membranes Respiratory/Chest: Positive for: Decreased Breath Sounds. Negative for: Respiratory Distress Cardiovascular: Positive for: Normal S1, S2, Irregular Rhythm. Negative for: Regular Rate and Rhythm, Tachycardic Abdomen: Positive for: Normal Bowel Sounds. Negative for: Tenderness, Distention Upper Extremity: Positive for: Normal Inspection. Negative for: Cyanosis, Edema Lower Extremity: Positive for: Normal Inspection. Negative for: Edema Neurological: Positive for: GCS=15 Skin: Positive for: Warm, Dry, Normal Color Psychiatric: Positive for: Alert, Oriented x 3 - Medications Active Medications: Active Medications Generic Name Dose Route Start Last Admin Trade Name Bhargavi PRN Reason Stop Dose Admin Acetaminophen 650 mg 04/28/18 18:47 Tylenol 325mg Tab PO Q6 PRN fever+pain Famotidine 20 mg 04/28/18 18:00 04/29/18 09:45 Pepcid PO 20 mg BID SERENITY Administration Furosemide 20 mg 04/29/18 10:00 04/29/18 09:54 Lasix IVP 20 mg DAILY SERENITY Administration Hydrocortisone Sodium Succinate 50 mg 04/29/18 00:00 04/29/18 08:00 Solu-Cortef IV 50 mg Q8H SERENITY Administration Diltiazem HCl 125 mg/ Dextrose 125 mls @ 5 mls/hr 04/28/18 16:45 04/29/18 09:39 IV 5 mg/hr .Q24H SERENITY 5 mls/hr Titration Protocol 5 MG/HR Heparin Sodium/Sodium Chloride 25,000 units in 250 mls @ 9.253 mls/hr 04/28/18 17:19 04/29/18 09:40 Heparin 09418 Units/250ml 1/2 Normal Saline IV 0 units/kg/hr .Q24H PRN 0 mls/hr PROTOCOL Titration Protocol 12 UNITS/KG/HR Ceftriaxone Sodium 1 gm/ 100 mls @ 100 mls/hr 04/28/18 18:30 04/28/18 19:41 Sodium Chloride IVPB 100 mls/hr Q24H SERENITY Administration Protocol Influenza Virus Vaccine 60 mcg 04/30/18 10:00 Flucelvax Quad [id number] Syr IM 04/30/18 10:01 .ONCE ONE Methimazole 10 mg 04/28/18 18:00 04/29/18 09:53 Tapazole PO 10 mg TID SERENITY Administration Pneumococcal Polyvalent Vaccine 0.5 ml 04/30/18 10:00 Pneumovax 23 Vaccine IM 04/30/18 10:01 .ONCE ONE Propranolol HCl 20 mg 04/28/18 18:00 04/29/18 09:53 Inderal PO 20 mg TID SERENITY Administration - Patient Studies Lab Studies: Lab Studies 04/29/18 04/29/18 04/29/18 Range/Units 08:40 06:28 06:28 WBC (4.8-10.8) K/uL RBC (3.80-5.20) Mil/uL Hgb (11.0-16.0) g/dL Hct (34.0-47.0) % MCV (81.0-99.0) fL MCH (27.0-31.0) pg MCHC (33.0-37.0) g/dL RDW (11.5-14.5) % Plt Count (130-400) K/uL MPV (7.2-11.7) fL Neut % (Auto) (50.0-75.0) % Lymph % (Auto) (20.0-40.0) % [place] % (Auto) (0.0-10.0) % Eos % (Auto) (0.0-4.0) % Baso % (Auto) (0.0-2.0) % Neut # (Auto) (1.8-7.0) K/uL Lymph # (Auto) (1.0-4.3) K/uL [place] # (Auto) (0.0-0.8) K/uL Eos # (Auto) (0.0-0.7) K/uL Baso # (Auto) (0.0-0.2) K/uL Retic Count (0.5-1.5) % APTT 185 H* D (21-34) SECONDS Sodium (132-148) mmol/L Potassium (3.6-5.2) mmol/L Chloride (98-107) mmol/L Carbon Dioxide (22-30) mmol/L Anion Gap (10-20) BUN (7-17) mg/dL Creatinine (0.7-1.2) mg/dL Est GFR ( Amer) Est GFR (Non-Af Amer) Random Glucose (65-105) mg/dL Calcium (8.6-10.4) mg/dl Phosphorus (2.5-4.5) mg/dL Magnesium (1.6-2.3) mg/dL Iron (37-170) ug/dL TIBC (250-450) ug/dL % Saturation (20-55) Transferrin (206-381) mg/dL Ferritin ng/mL Total Bilirubin (0.2-1.3) mg/dL AST (14-36) U/L ALT (9-52) U/L Alkaline Phosphatase (38-126) U/L Total Protein (6.3-8.3) g/dL Albumin (3.5-5.0) g/dL Globulin (2.2-3.9) gm/dL Albumin/Globulin Ratio (1.0-2.1) 25-OH Vitamin D Total < 12.8 L (30.0-100.0) NG/ML Free T4 (0.78-2.19) ng/dL Thyroxine (T4) (5.5-11.0) ug/dL Total T3 (1.49-2.60) nmol/L TSH 3rd Generation (0.46-4.68) mIU/L Cortisol AM Sample 60.3 H (4.46-22.7) ug/dL Urine Color (YELLOW) Urine Clarity (Clear) Urine pH (5.0-8.0) Ur Specific [place] (1.003-1.030) Urine Protein (NEGATIVE) mg/dL Urine Glucose (UA) (Normal) mg/dL Urine Ketones (NEGATIVE) mg/dL Urine Blood (NEGATIVE) Urine Nitrate (NEGATIVE) Urine Bilirubin (NEGATIVE) Urine Urobilinogen (0.2-1.0) mg/dL Ur Leukocyte Esterase (Negative) Andrea/uL Urine WBC (Auto) (0-5) /hpf Urine RBC (Auto) (0-3) /hpf Ur Squamous Epith Cells (0-5) /hpf Urine Bacteria (<OCC) Urine Yeast (Budding) (NEGATIVE) /hpf 04/29/18 04/29/18 04/29/18 Range/Units 06:28 06:28 06:28 WBC (4.8-10.8) K/uL RBC (3.80-5.20) Mil/uL Hgb (11.0-16.0) g/dL Hct (34.0-47.0) % MCV (81.0-99.0) fL MCH (27.0-31.0) pg MCHC (33.0-37.0) g/dL RDW (11.5-14.5) % Plt Count (130-400) K/uL MPV (7.2-11.7) fL Neut % (Auto) (50.0-75.0) % Lymph % (Auto) (20.0-40.0) % [place] % (Auto) (0.0-10.0) % Eos % (Auto) (0.0-4.0) % Baso % (Auto) (0.0-2.0) % Neut # (Auto) (1.8-7.0) K/uL Lymph # (Auto) (1.0-4.3) K/uL [place] # (Auto) (0.0-0.8) K/uL Eos # (Auto) (0.0-0.7) K/uL Baso # (Auto) (0.0-0.2) K/uL Retic Count (0.5-1.5) % APTT (21-34) SECONDS Sodium (132-148) mmol/L Potassium (3.6-5.2) mmol/L Chloride (98-107) mmol/L Carbon Dioxide (22-30) mmol/L Anion Gap (10-20) BUN (7-17) mg/dL Creatinine (0.7-1.2) mg/dL Est GFR ( Amer) Est GFR (Non-Af Amer) Random Glucose (65-105) mg/dL Calcium (8.6-10.4) mg/dl Phosphorus (2.5-4.5) mg/dL Magnesium (1.6-2.3) mg/dL Iron 20 L (37-170) ug/dL TIBC 393 (250-450) ug/dL % Saturation 5 L (20-55) Transferrin 287.78 (206-381) mg/dL Ferritin ng/mL Total Bilirubin (0.2-1.3) mg/dL AST (14-36) U/L ALT (9-52) U/L Alkaline Phosphatase (38-126) U/L Total Protein (6.3-8.3) g/dL Albumin (3.5-5.0) g/dL Globulin (2.2-3.9) gm/dL Albumin/Globulin Ratio (1.0-2.1) 25-OH Vitamin D Total (30.0-100.0) NG/ML Free T4 (0.78-2.19) ng/dL Thyroxine (T4) 7.77 (5.5-11.0) ug/dL Total T3 (1.49-2.60) nmol/L TSH 3rd Generation 0.04 L (0.46-4.68) mIU/L Cortisol AM Sample (4.46-22.7) ug/dL Urine Color (YELLOW) Urine Clarity (Clear) Urine pH (5.0-8.0) Ur Specific [place] (1.003-1.030) Urine Protein (NEGATIVE) mg/dL Urine Glucose (UA) (Normal) mg/dL Urine Ketones (NEGATIVE) mg/dL Urine Blood (NEGATIVE) Urine Nitrate (NEGATIVE) Urine Bilirubin (NEGATIVE) Urine Urobilinogen (0.2-1.0) mg/dL Ur Leukocyte Esterase (Negative) Andrea/uL Urine WBC (Auto) (0-5) /hpf Urine RBC (Auto) (0-3) /hpf Ur Squamous Epith Cells (0-5) /hpf Urine Bacteria (<OCC) Urine Yeast (Budding) (NEGATIVE) /hpf 04/29/18 04/29/18 04/29/18 Range/Units 06:28 06:28 06:28 WBC 5.7 (4.8-10.8) K/uL RBC 4.57 (3.80-5.20) Mil/uL Hgb 9.8 L (11.0-16.0) g/dL Hct 32.7 L (34.0-47.0) % MCV 71.6 L (81.0-99.0) fL MCH 21.4 L (27.0-31.0) pg MCHC 30.0 L (33.0-37.0) g/dL RDW 18.0 H (11.5-14.5) % Plt Count 194 (130-400) K/uL MPV 9.1 (7.2-11.7) fL Neut % (Auto) 88.1 H (50.0-75.0) % Lymph % (Auto) 10.6 L (20.0-40.0) % [place] % (Auto) 1.2 (0.0-10.0) % Eos % (Auto) 0.0 (0.0-4.0) % Baso % (Auto) 0.1 (0.0-2.0) % Neut # (Auto) 5.0 (1.8-7.0) K/uL Lymph # (Auto) 0.6 L (1.0-4.3) K/uL [place] # (Auto) 0.1 (0.0-0.8) K/uL Eos # (Auto) 0.0 (0.0-0.7) K/uL Baso # (Auto) 0.0 (0.0-0.2) K/uL Retic Count 1.2 (0.5-1.5) % APTT (21-34) SECONDS Sodium 136 (132-148) mmol/L Potassium 4.1 (3.6-5.2) mmol/L Chloride 99 (98-107) mmol/L Carbon Dioxide 29 (22-30) mmol/L Anion Gap 12 (10-20) BUN 19 H (7-17) mg/dL Creatinine 0.6 L (0.7-1.2) mg/dL Est GFR ( Amer) > 60 Est GFR (Non-Af Amer) > 60 Random Glucose 150 H D (65-105) mg/dL Calcium 8.3 L (8.6-10.4) mg/dl Phosphorus 4.7 H (2.5-4.5) mg/dL Magnesium 1.7 (1.6-2.3) mg/dL Iron (37-170) ug/dL TIBC (250-450) ug/dL % Saturation (20-55) Transferrin (206-381) mg/dL Ferritin 10.9 ng/mL Total Bilirubin 0.5 (0.2-1.3) mg/dL AST 31 (14-36) U/L ALT 34 (9-52) U/L Alkaline Phosphatase 88 (38-126) U/L Total Protein 6.0 L (6.3-8.3) g/dL Albumin 3.2 L (3.5-5.0) g/dL Globulin 2.8 (2.2-3.9) gm/dL Albumin/Globulin Ratio 1.2 (1.0-2.1) 25-OH Vitamin D Total (30.0-100.0) NG/ML Free T4 (0.78-2.19) ng/dL Thyroxine (T4) (5.5-11.0) ug/dL Total T3 (1.49-2.60) nmol/L TSH 3rd Generation (0.46-4.68) mIU/L Cortisol AM Sample (4.46-22.7) ug/dL Urine Color (YELLOW) Urine Clarity (Clear) Urine pH (5.0-8.0) Ur Specific [place] (1.003-1.030) Urine Protein (NEGATIVE) mg/dL Urine Glucose (UA) (Normal) mg/dL Urine Ketones (NEGATIVE) mg/dL Urine Blood (NEGATIVE) Urine Nitrate (NEGATIVE) Urine Bilirubin (NEGATIVE) Urine Urobilinogen (0.2-1.0) mg/dL Ur Leukocyte Esterase (Negative) Andrea/uL Urine WBC (Auto) (0-5) /hpf Urine RBC (Auto) (0-3) /hpf Ur Squamous Epith Cells (0-5) /hpf Urine Bacteria (<OCC) Urine Yeast (Budding) (NEGATIVE) /hpf 04/29/18 04/28/18 04/28/18 Range/Units 00:33 17:22 17:22 WBC (4.8-10.8) K/uL RBC (3.80-5.20) Mil/uL Hgb (11.0-16.0) g/dL Hct (34.0-47.0) % MCV (81.0-99.0) fL MCH (27.0-31.0) pg MCHC (33.0-37.0) g/dL RDW (11.5-14.5) % Plt Count (130-400) K/uL MPV (7.2-11.7) fL Neut % (Auto) (50.0-75.0) % Lymph % (Auto) (20.0-40.0) % [place] % (Auto) (0.0-10.0) % Eos % (Auto) (0.0-4.0) % Baso % (Auto) (0.0-2.0) % Neut # (Auto) (1.8-7.0) K/uL Lymph # (Auto) (1.0-4.3) K/uL [place] # (Auto) (0.0-0.8) K/uL Eos # (Auto) (0.0-0.7) K/uL Baso # (Auto) (0.0-0.2) K/uL Retic Count (0.5-1.5) % APTT 117 H* D (21-34) SECONDS Sodium (132-148) mmol/L Potassium (3.6-5.2) mmol/L Chloride (98-107) mmol/L Carbon Dioxide (22-30) mmol/L Anion Gap (10-20) BUN (7-17) mg/dL Creatinine (0.7-1.2) mg/dL Est GFR ( Amer) Est GFR (Non-Af Amer) Random Glucose (65-105) mg/dL Calcium (8.6-10.4) mg/dl Phosphorus (2.5-4.5) mg/dL Magnesium (1.6-2.3) mg/dL Iron (37-170) ug/dL TIBC (250-450) ug/dL % Saturation (20-55) Transferrin (206-381) mg/dL Ferritin ng/mL Total Bilirubin (0.2-1.3) mg/dL AST (14-36) U/L ALT (9-52) U/L Alkaline Phosphatase (38-126) U/L Total Protein (6.3-8.3) g/dL Albumin (3.5-5.0) g/dL Globulin (2.2-3.9) gm/dL Albumin/Globulin Ratio (1.0-2.1) 25-OH Vitamin D Total (30.0-100.0) NG/ML Free T4 1.15 (0.78-2.19) ng/dL Thyroxine (T4) (5.5-11.0) ug/dL Total T3 1.90 (1.49-2.60) nmol/L TSH 3rd Generation (0.46-4.68) mIU/L Cortisol AM Sample (4.46-22.7) ug/dL Urine Color (YELLOW) Urine Clarity (Clear) Urine pH (5.0-8.0) Ur Specific [place] (1.003-1.030) Urine Protein (NEGATIVE) mg/dL Urine Glucose (UA) (Normal) mg/dL Urine Ketones (NEGATIVE) mg/dL Urine Blood (NEGATIVE) Urine Nitrate (NEGATIVE) Urine Bilirubin (NEGATIVE) Urine Urobilinogen (0.2-1.0) mg/dL Ur Leukocyte Esterase (Negative) Andrea/uL Urine WBC (Auto) (0-5) /hpf Urine RBC (Auto) (0-3) /hpf Ur Squamous Epith Cells (0-5) /hpf Urine Bacteria (<OCC) Urine Yeast (Budding) (NEGATIVE) /hpf 04/28/18 Range/Units 11:20 WBC (4.8-10.8) K/uL RBC (3.80-5.20) Mil/uL Hgb (11.0-16.0) g/dL Hct (34.0-47.0) % MCV (81.0-99.0) fL MCH (27.0-31.0) pg MCHC (33.0-37.0) g/dL RDW (11.5-14.5) % Plt Count (130-400) K/uL MPV (7.2-11.7) fL Neut % (Auto) (50.0-75.0) % Lymph % (Auto) (20.0-40.0) % [place] % (Auto) (0.0-10.0) % Eos % (Auto) (0.0-4.0) % Baso % (Auto) (0.0-2.0) % Neut # (Auto) (1.8-7.0) K/uL Lymph # (Auto) (1.0-4.3) K/uL [place] # (Auto) (0.0-0.8) K/uL Eos # (Auto) (0.0-0.7) K/uL Baso # (Auto) (0.0-0.2) K/uL Retic Count (0.5-1.5) % APTT (21-34) SECONDS Sodium (132-148) mmol/L Potassium (3.6-5.2) mmol/L Chloride (98-107) mmol/L Carbon Dioxide (22-30) mmol/L Anion Gap (10-20) BUN (7-17) mg/dL Creatinine (0.7-1.2) mg/dL Est GFR ( Amer) Est GFR (Non-Af Amer) Random Glucose (65-105) mg/dL Calcium (8.6-10.4) mg/dl Phosphorus (2.5-4.5) mg/dL Magnesium (1.6-2.3) mg/dL Iron (37-170) ug/dL TIBC (250-450) ug/dL % Saturation (20-55) Transferrin (206-381) mg/dL Ferritin ng/mL Total Bilirubin (0.2-1.3) mg/dL AST (14-36) U/L ALT (9-52) U/L Alkaline Phosphatase (38-126) U/L Total Protein (6.3-8.3) g/dL Albumin (3.5-5.0) g/dL Globulin (2.2-3.9) gm/dL Albumin/Globulin Ratio (1.0-2.1) 25-OH Vitamin D Total (30.0-100.0) NG/ML Free T4 (0.78-2.19) ng/dL Thyroxine (T4) (5.5-11.0) ug/dL Total T3 (1.49-2.60) nmol/L TSH 3rd Generation (0.46-4.68) mIU/L Cortisol AM Sample (4.46-22.7) ug/dL Urine Color Straw (YELLOW) Urine Clarity Clear (Clear) Urine pH 6.0 (5.0-8.0) Ur Specific [place] 1.010 (1.003-1.030) Urine Protein Negative (NEGATIVE) mg/dL Urine Glucose (UA) Normal (Normal) mg/dL Urine Ketones Negative (NEGATIVE) mg/dL Urine Blood Negative (NEGATIVE) Urine Nitrate Negative (NEGATIVE) Urine Bilirubin Negative (NEGATIVE) Urine Urobilinogen Normal (0.2-1.0) mg/dL Ur Leukocyte Esterase 2+ H (Negative) Andrea/uL Urine WBC (Auto) 37 H (0-5) /hpf Urine RBC (Auto) 2 (0-3) /hpf Ur Squamous Epith Cells < 1 (0-5) /hpf Urine Bacteria Rare (<OCC) Urine Yeast (Budding) Occ H (NEGATIVE) /hpf Laboratory Results - last 24 hr 04/28/18 04/28/18 04/28/18 11:20 17:22 17:22 WBC RBC Hgb Hct MCV MCH MCHC RDW Plt Count MPV Neut % (Auto) Lymph % (Auto) [place] % (Auto) Eos % (Auto) Baso % (Auto) Neut # (Auto) Lymph # (Auto) [place] # (Auto) Eos # (Auto) Baso # (Auto) Retic Count APTT Sodium Potassium Chloride Carbon Dioxide Anion Gap BUN Creatinine Est GFR ( Amer) Est GFR (Non-Af Amer) Random Glucose Calcium Phosphorus Magnesium Iron TIBC % Saturation Transferrin Ferritin Total Bilirubin AST ALT Alkaline Phosphatase Total Protein Albumin Globulin Albumin/Globulin Ratio 25-OH Vitamin D Total Free T4 1.15 Thyroxine (T4) Total T3 1.90 TSH 3rd Generation Cortisol AM Sample Urine Color Straw Urine Clarity Clear Urine pH 6.0 Ur Specific [place] 1.010 Urine Protein Negative Urine Glucose (UA) Normal Urine Ketones Negative Urine Blood Negative Urine Nitrate Negative Urine Bilirubin Negative Urine Urobilinogen Normal Ur Leukocyte Esterase 2+ H Urine WBC (Auto) 37 H Urine RBC (Auto) 2 Ur Squamous Epith Cells < 1 Urine Bacteria Rare Urine Yeast (Budding) Occ H 04/29/18 04/29/18 04/29/18 00:33 06:28 06:28 WBC 5.7 RBC 4.57 Hgb 9.8 L Hct 32.7 L MCV 71.6 L MCH 21.4 L MCHC 30.0 L RDW 18.0 H Plt Count 194 MPV 9.1 Neut % (Auto) 88.1 H Lymph % (Auto) 10.6 L [place] % (Auto) 1.2 Eos % (Auto) 0.0 Baso % (Auto) 0.1 Neut # (Auto) 5.0 Lymph # (Auto) 0.6 L [place] # (Auto) 0.1 Eos # (Auto) 0.0 Baso # (Auto) 0.0 Retic Count APTT 117 H* D Sodium 136 Potassium 4.1 Chloride 99 Carbon Dioxide 29 Anion Gap 12 BUN 19 H Creatinine 0.6 L Est GFR ( Amer) > 60 Est GFR (Non-Af Amer) > 60 Random Glucose 150 H D Calcium 8.3 L Phosphorus 4.7 H Magnesium 1.7 Iron TIBC % Saturation Transferrin Ferritin 10.9 Total Bilirubin 0.5 AST 31 ALT 34 Alkaline Phosphatase 88 Total Protein 6.0 L Albumin 3.2 L Globulin 2.8 Albumin/Globulin Ratio 1.2 25-OH Vitamin D Total Free T4 Thyroxine (T4) Total T3 TSH 3rd Generation Cortisol AM Sample Urine Color Urine Clarity Urine pH Ur Specific [place] Urine Protein Urine Glucose (UA) Urine Ketones Urine Blood Urine Nitrate Urine Bilirubin Urine Urobilinogen Ur Leukocyte Esterase Urine WBC (Auto) Urine RBC (Auto) Ur Squamous Epith Cells Urine Bacteria Urine Yeast (Budding) 04/29/18 04/29/18 04/29/18 06:28 06:28 06:28 WBC RBC Hgb Hct MCV MCH MCHC RDW Plt Count MPV Neut % (Auto) Lymph % (Auto) [place] % (Auto) Eos % (Auto) Baso % (Auto) Neut # (Auto) Lymph # (Auto) [place] # (Auto) Eos # (Auto) Baso # (Auto) Retic Count 1.2 APTT Sodium Potassium Chloride Carbon Dioxide Anion Gap BUN Creatinine Est GFR ( Amer) Est GFR (Non-Af Amer) Random Glucose Calcium Phosphorus Magnesium Iron 20 L TIBC 393 % Saturation 5 L Transferrin 287.78 Ferritin Total Bilirubin AST ALT Alkaline Phosphatase Total Protein Albumin Globulin Albumin/Globulin Ratio 25-OH Vitamin D Total Free T4 Thyroxine (T4) Total T3 TSH 3rd Generation Cortisol AM Sample Urine Color Urine Clarity Urine pH Ur Specific [place] Urine Protein Urine Glucose (UA) Urine Ketones Urine Blood Urine Nitrate Urine Bilirubin Urine Urobilinogen Ur Leukocyte Esterase Urine WBC (Auto) Urine RBC (Auto) Ur Squamous Epith Cells Urine Bacteria Urine Yeast (Budding) 04/29/18 04/29/18 04/29/18 06:28 06:28 06:28 WBC RBC Hgb Hct MCV MCH MCHC RDW Plt Count MPV Neut % (Auto) Lymph % (Auto) [place] % (Auto) Eos % (Auto) Baso % (Auto) Neut # (Auto) Lymph # (Auto) [place] # (Auto) Eos # (Auto) Baso # (Auto) Retic Count APTT Sodium Potassium Chloride Carbon Dioxide Anion Gap BUN Creatinine Est GFR ( Amer) Est GFR (Non-Af Amer) Random Glucose Calcium Phosphorus Magnesium Iron TIBC % Saturation Transferrin Ferritin Total Bilirubin AST ALT Alkaline Phosphatase Total Protein Albumin Globulin Albumin/Globulin Ratio 25-OH Vitamin D Total < 12.8 L Free T4 Thyroxine (T4) 7.77 Total T3 TSH 3rd Generation 0.04 L Cortisol AM Sample 60.3 H Urine Color Urine Clarity Urine pH Ur Specific [place] Urine Protein Urine Glucose (UA) Urine Ketones Urine Blood Urine Nitrate Urine Bilirubin Urine Urobilinogen Ur Leukocyte Esterase Urine WBC (Auto) Urine RBC (Auto) Ur Squamous Epith Cells Urine Bacteria Urine Yeast (Budding) 04/29/18 08:40 WBC RBC Hgb Hct MCV MCH MCHC RDW Plt Count MPV Neut % (Auto) Lymph % (Auto) [place] % (Auto) Eos % (Auto) Baso % (Auto) Neut # (Auto) Lymph # (Auto) [place] # (Auto) Eos # (Auto) Baso # (Auto) Retic Count APTT 185 H* D Sodium Potassium Chloride Carbon Dioxide Anion Gap BUN Creatinine Est GFR ( Amer) Est GFR (Non-Af Amer) Random Glucose Calcium Phosphorus Magnesium Iron TIBC % Saturation Transferrin Ferritin Total Bilirubin AST ALT Alkaline Phosphatase Total Protein Albumin Globulin Albumin/Globulin Ratio 25-OH Vitamin D Total Free T4 Thyroxine (T4) Total T3 TSH 3rd Generation Cortisol AM Sample Urine Color Urine Clarity Urine pH Ur Specific [place] Urine Protein Urine Glucose (UA) Urine Ketones Urine Blood Urine Nitrate Urine Bilirubin Urine Urobilinogen Ur Leukocyte Esterase Urine WBC (Auto) Urine RBC (Auto) Ur Squamous Epith Cells Urine Bacteria Urine Yeast (Budding) Radiology Impressions: Radiology Impressions Chest CT 04/28/18 11:50 IMPRESSION: No evidence of acute central pulmonary embolus. There is reflux of contrast material in the to the intrahepatic IVC and hepatic veins; rule out right heart strain. Slight dilatation right main pulmonary artery. Marked cardiomegaly. There is a moderate large right-sided effusion with atelectasis seen in the right lung base and middle lobe. Trace left-sided effusion. Spiculated pleural-based nodular density left lung apex with additional spiculated nodular density right lung apex with several additional small nodules. Possibility of underlying neoplasm not excluded. Consider follow-up PET-CT scan or biopsy for further evaluation. Markedly enlarged heterogeneous thyroid gland which results in compressive effects on the upper trachea as described. While these findings probably represent a large thyroid quarter, the possibility of underlying thyroid malignancy not excluded. Clinical correlation recommended. Thyroid Ultrasound 04/29/18 16:41 IMPRESSION: Markedly enlarged heterogeneous gland with multiple (6) thyroid nodules. Recommendations for follow-up: 1. Radionuclide Scan to assess Thyroid function and to evaluate the thyroid for the presence of hot or cold nodules. 2. Fine needle aspiration (FNA) should also be considered as an invasive diagnostic tool in the assessment of findings described above. EKG/Cardiology Studies: Cardiology / EKG Studies 04/28/18 14:48 EKG [ELECTROCARDIOGRAM] Stat Comment: Mode Of Transportation: BED Reason For Exam: CP 04/28/18 16:41 ELECTROCARDIOGRAM Q6H Comment: Mode Of Transportation: Reason For Exam: pt with rapid a. fib ELECTROCARDIOGRAM Q6H Comment: Mode Of Transportation: Reason For Exam: pt with rapid a. fib 04/28/18 20:48 ELECTROCARDIOGRAM Q6 Comment: Mode Of Transportation: Reason For Exam: chest pain 04/28/18 22:41 ELECTROCARDIOGRAM Q6H Comment: Mode Of Transportation: Reason For Exam: pt with rapid a. fib ELECTROCARDIOGRAM Q6H Comment: Mode Of Transportation: Reason For Exam: pt with rapid a. fib 04/29/18 07:00 EKG [ELECTROCARDIOGRAM] Routine Comment: Mode Of Transportation: Reason For Exam: Afib 04/29/18 20:48 ELECTROCARDIOGRAM Q6 Comment: Mode Of Transportation: Reason For Exam: chest pain Review of Systems - Review of Systems Review of Systems: 12 point ROS obtained and noted in HPI Critical Care Progress Note - Prophylaxis GI Prophylaxis GI: Pepsid - Prophylaxis DVT Prophylaxis DVT: Heparin SQ - Nutrition Nutrition: Nutrition Category Date Time Status Heart Healthy Diet [DIET] Diets 04/28/18 Dinner Active Assessment/Plan - Assessment and Plan (Free Text) Assessment: 87 yo female [place] w/ pmh of thyroid goiter and HTN admitted to ICU for afib w/ RVR, untreated hyperthyroidism, and spiculated lung mass seen on chest CT. Neuro Awake, Alert; possible underlying dementia Pulm Chest CT- shows pleural effusions bilaterally, no pe, spiculated pleural nodular density left lung apex w/ additional spiculated nodular density right lung apex w/ several additional small nodules. Large right sided effusion and small left sided effusion Lasix CV Echo pending Lasix Afib w/ RVR- likely untreated hyperthyroidism etiology, Heparin drip Propanolol Endo Subclinical hyperthyroidism from labs Thyroid ultrasound- 6 nodules- full report available on EMR- treatment as per family discussion Propanolol Methimazole Solucortef GI no active issues Renal U/A: 2+ L.E, Rocephin ID Rocephin no cx, afebrile, no wbc Disposition: Control thyroid storm with methimazole/propanolol/solucortef; off cardizem drip; continue pulm toilet medical management; as per family discussion for multiple nodules in lung/thyroid PGY-1 [facility] Management discussed with Dr. Villalobos <Beny Villalobos - Last Filed: 04/29/18 16:30> CCU Subjective - Physician Review Critical Care Time Spent (in minutes): 45 CCU Objective - Vital Signs / Intake & Output Intake and Output (Last 8hrs): Intake & Output 04/29/18 04/29/18 04/29/18 06:59 14:59 22:59 Intake Total 362.9 428.8 Output Total 350 Balance 12.9 428.8 Intake: IV 196 137 Intake, IV Amount 166.9 71.8 left ac 80 30 right ac 86.9 41.8 Oral 220 Output: Urine 350 Urine, Voided 350 - Medications Active Medications: Active Medications Generic Name Dose Route Start Last Admin Trade Name Bhargavi PRN Reason Stop Dose Admin Acetaminophen 650 mg 04/28/18 18:47 Tylenol 325mg Tab PO Q6 PRN fever+pain Famotidine 20 mg 04/28/18 18:00 04/29/18 09:45 Pepcid PO 20 mg BID SERENITY Administration Furosemide 20 mg 04/29/18 10:00 04/29/18 09:54 Lasix IVP 20 mg DAILY SERENITY Administration Hydrocortisone Sodium Succinate 50 mg 04/29/18 00:00 04/29/18 08:00 Solu-Cortef IV 50 mg Q8H SERENITY Administration Heparin Sodium/Sodium Chloride 25,000 units in 250 mls @ 9.253 mls/hr 04/28/18 17:19 04/29/18 11:00 Heparin 37628 Units/250ml 1/2 Normal Saline IV 12 units/kg/hr .Q24H PRN 9.253 mls/hr PROTOCOL Titration Protocol 12 UNITS/KG/HR Ceftriaxone Sodium 1 gm/ 100 mls @ 100 mls/hr 04/28/18 18:30 04/28/18 19:41 Sodium Chloride IVPB 100 mls/hr Q24H SERENITY Administration Protocol Influenza Virus Vaccine 60 mcg 04/30/18 10:00 Flucelvax Quad 1217-2908 Syr IM 04/30/18 10:01 .ONCE ONE Methimazole 10 mg 04/28/18 18:00 04/29/18 14:31 Tapazole PO 10 mg TID SERENITY Administration Pneumococcal Polyvalent Vaccine 0.5 ml 04/30/18 10:00 Pneumovax 23 Vaccine IM 04/30/18 10:01 .ONCE ONE Propranolol HCl 20 mg 04/28/18 18:00 04/29/18 14:31 Inderal PO 20 mg TID SERENITY Administration - Patient Studies Lab Studies: Lab Studies 01/08/19 01/08/19 01/08/19 Range/Units 08:40 06:28 06:28 WBC (4.8-10.8) K/uL RBC (3.80-5.20) Mil/uL Hgb (11.0-16.0) g/dL Hct (34.0-47.0) % MCV (81.0-99.0) fL MCH (27.0-31.0) pg MCHC (33.0-37.0) g/dL RDW (11.5-14.5) % Plt Count (130-400) K/uL MPV (7.2-11.7) fL Neut % (Auto) (50.0-75.0) % Lymph % (Auto) (20.0-40.0) % [place] % (Auto) (0.0-10.0) % Eos % (Auto) (0.0-4.0) % Baso % (Auto) (0.0-2.0) % Neut # (Auto) (1.8-7.0) K/uL Lymph # (Auto) (1.0-4.3) K/uL [place] # (Auto) (0.0-0.8) K/uL Eos # (Auto) (0.0-0.7) K/uL Baso # (Auto) (0.0-0.2) K/uL Retic Count (0.5-1.5) % APTT 185 H* D (21-34) SECONDS Sodium (132-148) mmol/L Potassium (3.6-5.2) mmol/L Chloride (98-107) mmol/L Carbon Dioxide (22-30) mmol/L Anion Gap (10-20) BUN (7-17) mg/dL Creatinine (0.7-1.2) mg/dL Est GFR ( Amer) Est GFR (Non-Af Amer) Random Glucose (65-105) mg/dL Calcium (8.6-10.4) mg/dl Phosphorus (2.5-4.5) mg/dL Magnesium (1.6-2.3) mg/dL Iron (37-170) ug/dL TIBC (250-450) ug/dL % Saturation (20-55) Transferrin (206-381) mg/dL Ferritin ng/mL Total Bilirubin (0.2-1.3) mg/dL AST (14-36) U/L ALT (9-52) U/L Alkaline Phosphatase (38-126) U/L Total Protein (6.3-8.3) g/dL Albumin (3.5-5.0) g/dL Globulin (2.2-3.9) gm/dL Albumin/Globulin Ratio (1.0-2.1) 25-OH Vitamin D Total < 12.8 L (30.0-100.0) NG/ML Free T4 (0.78-2.19) ng/dL Thyroxine (T4) (5.5-11.0) ug/dL Total T3 (1.49-2.60) nmol/L TSH 3rd Generation (0.46-4.68) mIU/L Cortisol AM Sample 60.3 H (4.46-22.7) ug/dL 04/29/18 04/29/18 04/29/18 Range/Units 06:28 06:28 06:28 WBC (4.8-10.8) K/uL RBC (3.80-5.20) Mil/uL Hgb (11.0-16.0) g/dL Hct (34.0-47.0) % MCV (81.0-99.0) fL MCH (27.0-31.0) pg MCHC (33.0-37.0) g/dL RDW (11.5-14.5) % Plt Count (130-400) K/uL MPV (7.2-11.7) fL Neut % (Auto) (50.0-75.0) % Lymph % (Auto) (20.0-40.0) % [place] % (Auto) (0.0-10.0) % Eos % (Auto) (0.0-4.0) % Baso % (Auto) (0.0-2.0) % Neut # (Auto) (1.8-7.0) K/uL Lymph # (Auto) (1.0-4.3) K/uL [place] # (Auto) (0.0-0.8) K/uL Eos # (Auto) (0.0-0.7) K/uL Baso # (Auto) (0.0-0.2) K/uL Retic Count (0.5-1.5) % APTT (21-34) SECONDS Sodium (132-148) mmol/L Potassium (3.6-5.2) mmol/L Chloride (98-107) mmol/L Carbon Dioxide (22-30) mmol/L Anion Gap (10-20) BUN (7-17) mg/dL Creatinine (0.7-1.2) mg/dL Est GFR ( Amer) Est GFR (Non-Af Amer) Random Glucose (65-105) mg/dL Calcium (8.6-10.4) mg/dl Phosphorus (2.5-4.5) mg/dL Magnesium (1.6-2.3) mg/dL Iron 20 L (37-170) ug/dL TIBC 393 (250-450) ug/dL % Saturation 5 L (20-55) Transferrin 287.78 (206-381) mg/dL Ferritin ng/mL Total Bilirubin (0.2-1.3) mg/dL AST (14-36) U/L ALT (9-52) U/L Alkaline Phosphatase (38-126) U/L Total Protein (6.3-8.3) g/dL Albumin (3.5-5.0) g/dL Globulin (2.2-3.9) gm/dL Albumin/Globulin Ratio (1.0-2.1) 25-OH Vitamin D Total (30.0-100.0) NG/ML Free T4 (0.78-2.19) ng/dL Thyroxine (T4) 7.77 (5.5-11.0) ug/dL Total T3 (1.49-2.60) nmol/L TSH 3rd Generation 0.04 L (0.46-4.68) mIU/L Cortisol AM Sample (4.46-22.7) ug/dL 04/29/18 04/29/18 04/29/18 Range/Units 06:28 06:28 06:28 WBC 5.7 (4.8-10.8) K/uL RBC 4.57 (3.80-5.20) Mil/uL Hgb 9.8 L (11.0-16.0) g/dL Hct 32.7 L (34.0-47.0) % MCV 71.6 L (81.0-99.0) fL MCH 21.4 L (27.0-31.0) pg MCHC 30.0 L (33.0-37.0) g/dL RDW 18.0 H (11.5-14.5) % Plt Count 194 (130-400) K/uL MPV 9.1 (7.2-11.7) fL Neut % (Auto) 88.1 H (50.0-75.0) % Lymph % (Auto) 10.6 L (20.0-40.0) % [place] % (Auto) 1.2 (0.0-10.0) % Eos % (Auto) 0.0 (0.0-4.0) % Baso % (Auto) 0.1 (0.0-2.0) % Neut # (Auto) 5.0 (1.8-7.0) K/uL Lymph # (Auto) 0.6 L (1.0-4.3) K/uL [place] # (Auto) 0.1 (0.0-0.8) K/uL Eos # (Auto) 0.0 (0.0-0.7) K/uL Baso # (Auto) 0.0 (0.0-0.2) K/uL Retic Count 1.2 (0.5-1.5) % APTT (21-34) SECONDS Sodium 136 (132-148) mmol/L Potassium 4.1 (3.6-5.2) mmol/L Chloride 99 (98-107) mmol/L Carbon Dioxide 29 (22-30) mmol/L Anion Gap 12 (10-20) BUN 19 H (7-17) mg/dL Creatinine 0.6 L (0.7-1.2) mg/dL Est GFR ( Amer) > 60 Est GFR (Non-Af Amer) > 60 Random Glucose 150 H D (65-105) mg/dL Calcium 8.3 L (8.6-10.4) mg/dl Phosphorus 4.7 H (2.5-4.5) mg/dL Magnesium 1.7 (1.6-2.3) mg/dL Iron (37-170) ug/dL TIBC (250-450) ug/dL % Saturation (20-55) Transferrin (206-381) mg/dL Ferritin 10.9 ng/mL Total Bilirubin 0.5 (0.2-1.3) mg/dL AST 31 (14-36) U/L ALT 34 (9-52) U/L Alkaline Phosphatase 88 (38-126) U/L Total Protein 6.0 L (6.3-8.3) g/dL Albumin 3.2 L (3.5-5.0) g/dL Globulin 2.8 (2.2-3.9) gm/dL Albumin/Globulin Ratio 1.2 (1.0-2.1) 25-OH Vitamin D Total (30.0-100.0) NG/ML Free T4 (0.78-2.19) ng/dL Thyroxine (T4) (5.5-11.0) ug/dL Total T3 (1.49-2.60) nmol/L TSH 3rd Generation (0.46-4.68) mIU/L Cortisol AM Sample (4.46-22.7) ug/dL 04/29/18 04/28/18 04/28/18 Range/Units 00:33 17:22 17:22 WBC (4.8-10.8) K/uL RBC (3.80-5.20) Mil/uL Hgb (11.0-16.0) g/dL Hct (34.0-47.0) % MCV (81.0-99.0) fL MCH (27.0-31.0) pg MCHC (33.0-37.0) g/dL RDW (11.5-14.5) % Plt Count (130-400) K/uL MPV (7.2-11.7) fL Neut % (Auto) (50.0-75.0) % Lymph % (Auto) (20.0-40.0) % [place] % (Auto) (0.0-10.0) % Eos % (Auto) (0.0-4.0) % Baso % (Auto) (0.0-2.0) % Neut # (Auto) (1.8-7.0) K/uL Lymph # (Auto) (1.0-4.3) K/uL [place] # (Auto) (0.0-0.8) K/uL Eos # (Auto) (0.0-0.7) K/uL Baso # (Auto) (0.0-0.2) K/uL Retic Count (0.5-1.5) % APTT 117 H* D (21-34) SECONDS Sodium (132-148) mmol/L Potassium (3.6-5.2) mmol/L Chloride (98-107) mmol/L Carbon Dioxide (22-30) mmol/L Anion Gap (10-20) BUN (7-17) mg/dL Creatinine (0.7-1.2) mg/dL Est GFR ( Amer) Est GFR (Non-Af Amer) Random Glucose (65-105) mg/dL Calcium (8.6-10.4) mg/dl Phosphorus (2.5-4.5) mg/dL Magnesium (1.6-2.3) mg/dL Iron (37-170) ug/dL TIBC (250-450) ug/dL % Saturation (20-55) Transferrin (206-381) mg/dL Ferritin ng/mL Total Bilirubin (0.2-1.3) mg/dL AST (14-36) U/L ALT (9-52) U/L Alkaline Phosphatase (38-126) U/L Total Protein (6.3-8.3) g/dL Albumin (3.5-5.0) g/dL Globulin (2.2-3.9) gm/dL Albumin/Globulin Ratio (1.0-2.1) 25-OH Vitamin D Total (30.0-100.0) NG/ML Free T4 1.15 (0.78-2.19) ng/dL Thyroxine (T4) (5.5-11.0) ug/dL Total T3 1.90 (1.49-2.60) nmol/L TSH 3rd Generation (0.46-4.68) mIU/L Cortisol AM Sample (4.46-22.7) ug/dL Laboratory Results - last 24 hr 04/28/18 04/28/18 04/29/18 17:22 17:22 00:33 WBC RBC Hgb Hct MCV MCH MCHC RDW Plt Count MPV Neut % (Auto) Lymph % (Auto) [place] % (Auto) Eos % (Auto) Baso % (Auto) Neut # (Auto) Lymph # (Auto) [place] # (Auto) Eos # (Auto) Baso # (Auto) Retic Count APTT 117 H* D Sodium Potassium Chloride Carbon Dioxide Anion Gap BUN Creatinine Est GFR ( Amer) Est GFR (Non-Af Amer) Random Glucose Calcium Phosphorus Magnesium Iron TIBC % Saturation Transferrin Ferritin Total Bilirubin AST ALT Alkaline Phosphatase Total Protein Albumin Globulin Albumin/Globulin Ratio 25-OH Vitamin D Total Free T4 1.15 Thyroxine (T4) Total T3 1.90 TSH 3rd Generation Cortisol AM Sample 04/29/18 04/29/18 04/29/18 06:28 06:28 06:28 WBC 5.7 RBC 4.57 Hgb 9.8 L Hct 32.7 L MCV 71.6 L MCH 21.4 L MCHC 30.0 L RDW 18.0 H Plt Count 194 MPV 9.1 Neut % (Auto) 88.1 H Lymph % (Auto) 10.6 L [place] % (Auto) 1.2 Eos % (Auto) 0.0 Baso % (Auto) 0.1 Neut # (Auto) 5.0 Lymph # (Auto) 0.6 L [place] # (Auto) 0.1 Eos # (Auto) 0.0 Baso # (Auto) 0.0 Retic Count 1.2 APTT Sodium 136 Potassium 4.1 Chloride 99 Carbon Dioxide 29 Anion Gap 12 BUN 19 H Creatinine 0.6 L Est GFR ( Amer) > 60 Est GFR (Non-Af Amer) > 60 Random Glucose 150 H D Calcium 8.3 L Phosphorus 4.7 H Magnesium 1.7 Iron TIBC % Saturation Transferrin Ferritin 10.9 Total Bilirubin 0.5 AST 31 ALT 34 Alkaline Phosphatase 88 Total Protein 6.0 L Albumin 3.2 L Globulin 2.8 Albumin/Globulin Ratio 1.2 25-OH Vitamin D Total Free T4 Thyroxine (T4) Total T3 TSH 3rd Generation Cortisol AM Sample 04/29/18 04/29/18 04/29/18 06:28 06:28 06:28 WBC RBC Hgb Hct MCV MCH MCHC RDW Plt Count MPV Neut % (Auto) Lymph % (Auto) [place] % (Auto) Eos % (Auto) Baso % (Auto) Neut # (Auto) Lymph # (Auto) [place] # (Auto) Eos # (Auto) Baso # (Auto) Retic Count APTT Sodium Potassium Chloride Carbon Dioxide Anion Gap BUN Creatinine Est GFR ( Amer) Est GFR (Non-Af Amer) Random Glucose Calcium Phosphorus Magnesium Iron 20 L TIBC 393 % Saturation 5 L Transferrin 287.78 Ferritin Total Bilirubin AST ALT Alkaline Phosphatase Total Protein Albumin Globulin Albumin/Globulin Ratio 25-OH Vitamin D Total Free T4 Thyroxine (T4) 7.77 Total T3 TSH 3rd Generation 0.04 L Cortisol AM Sample 04/29/18 04/29/18 04/29/18 06:28 06:28 08:40 WBC RBC Hgb Hct MCV MCH MCHC RDW Plt Count MPV Neut % (Auto) Lymph % (Auto) [place] % (Auto) Eos % (Auto) Baso % (Auto) Neut # (Auto) Lymph # (Auto) [place] # (Auto) Eos # (Auto) Baso # (Auto) Retic Count APTT 185 H* D Sodium Potassium Chloride Carbon Dioxide Anion Gap BUN Creatinine Est GFR ( Amer) Est GFR (Non-Af Amer) Random Glucose Calcium Phosphorus Magnesium Iron TIBC % Saturation Transferrin Ferritin Total Bilirubin AST ALT Alkaline Phosphatase Total Protein Albumin Globulin Albumin/Globulin Ratio 25-OH Vitamin D Total < 12.8 L Free T4 Thyroxine (T4) Total T3 TSH 3rd Generation Cortisol AM Sample 60.3 H Radiology Impressions: Radiology Impressions Chest CT 04/28/18 11:50 IMPRESSION: No evidence of acute central pulmonary embolus. There is reflux of contrast material in the to the intrahepatic IVC and hepatic veins; rule out right heart strain. Slight dilatation right main pulmonary artery. Marked cardiomegaly. There is a moderate large right-sided effusion with atelectasis seen in the right lung base and middle lobe. Trace left-sided effusion. Spiculated pleural-based nodular density left lung apex with additional spiculated nodular density right lung apex with several additional small nodules. Possibility of underlying neoplasm not excluded. Consider follow-up PET-CT scan or biopsy for further evaluation. Markedly enlarged heterogeneous thyroid gland which results in compressive effects on the upper trachea as described. While these findings probably represent a large thyroid quarter, the possibility of underlying thyroid malignancy not excluded. Clinical correlation recommended. Chest X-Ray 04/29/18 06:00 Impression: Persistent moderate right and small left pleural effusion. Prominent consolidative changes in the right mid to lower lung zones as well as the left lung base. Chin obscures evaluation of the lung apices where there were spiculated masses on recent chest CT. Right hilar prominence. Atherosclerotic calcification at the aortic knob. Prominent upper mediastinum likely related to prominent thyromegaly. Cardiomegaly. Degenerative changes in the spine and shoulders. Calcific densities seen at the axilla bilaterally as well as within right subcoracoid region. Thyroid Ultrasound 04/29/18 16:41 IMPRESSION: Markedly enlarged heterogeneous gland with multiple (6) thyroid nodules. Recommendations for follow-up: 1. Radionuclide Scan to assess Thyroid function and to evaluate the thyroid for the presence of hot or cold nodules. 2. Fine needle aspiration (FNA) should also be considered as an invasive diagnostic tool in the assessment of findings described above. EKG/Cardiology Studies: Cardiology / EKG Studies 04/28/18 16:41 ELECTROCARDIOGRAM Q6H Comment: Mode Of Transportation: Reason For Exam: pt with rapid a. fib ELECTROCARDIOGRAM Q6H Comment: Mode Of Transportation: Reason For Exam: pt with rapid a. fib 04/28/18 20:48 ELECTROCARDIOGRAM Q6 Comment: Mode Of Transportation: Reason For Exam: chest pain 04/28/18 22:41 ELECTROCARDIOGRAM Q6H Comment: Mode Of Transportation: Reason For Exam: pt with rapid a. fib ELECTROCARDIOGRAM Q6H Comment: Mode Of Transportation: Reason For Exam: pt with rapid a. fib 04/29/18 07:00 EKG [ELECTROCARDIOGRAM] Routine Comment: Mode Of Transportation: Reason For Exam: Afib 04/29/18 20:48 ELECTROCARDIOGRAM Q6 Comment: Mode Of Transportation: Reason For Exam: chest pain Critical Care Progress Note - Nutrition Nutrition: Nutrition Category Date Time Status Heart Healthy Diet [DIET] Diets 04/28/18 Dinner Active Attending/Attestation - Attestation I have personally seen and examined this patient.: Yes I have fully participated in the care of the patient.: Yes I have reviewed all pertinent clinical information: Yes Notes (Text): 04/29/18 16:29 Patient seen and examined in the intensive care unit. Case discussed with housestaff in the morning rounds. Patient is awake and responsive Sitting comfortably in no distress On Cardizem drip for atrial fibrillation Started on propofol and methimazole for hyperthyroidism Need thoracentesis for pleural effusion Continue present treatment for now
--- NOTE | 2018-04-29 11:59 | CARD ---
APPROVED REPORT Date of service: 04/28/2018 EKG Measurement Heart [id number] <Conclusion> Atrial fibrillation with premature ventricular or aberrantly conducted complexes ST & T wave abnormality, consider anterolateral ischemia Prolonged QT Abnormal ECG
--- NOTE | 2018-04-29 12:00 | CARD ---
APPROVED REPORT Date of service: 04/28/2018 EKG Measurement Heart [id number] <Conclusion> Atrial fibrillation with rapid ventricular response Minimal voltage criteria for LVH, may be normal variant ST & T wave abnormality, consider anterolateral ischemia Abnormal ECG
--- NOTE | 2018-04-29 12:18 | CARD ---
APPROVED REPORT Date of service: 04/29/2018 EXAM: Two-dimensional and M-mode echocardiogram with Doppler and color Doppler. Other Information Quality : GoodRhythm : INDICATION Dyspnea Atrial Fibrillation Syncope 2D DIMENSIONS IVSd1.1 (0.7-1.1cm)Aortic Root (2D)3.3 (2.0-3.7cm) LVDd4.2 (3.9-5.9cm)LVOT Diameter1.8 (1.8-2.4cm) PWd1.1 (0.7-1.1cm)LA [id number] (18-58mL) LVDs3.3 (2.5-4.0cm)FS (%) 22.1 % LVEF (%)45.0 (>50%)LVEF (Ordonez's)55 % M-Mode DIMENSIONS TAPSE21.39 cmLVEF (%)55 (>50%) Aortic Valve AoV Peak Llutyumt372.8cm/sAoV VTI33.2cmAO Peak GR.12mmHg LVOT Peak Hnymklja78.0cm/sLVOT VTI21.39cmAO Mean GR.7mmHg YURIY (VMAX)1.93co1HGX (VTI)1.71cm2 Mitral Valve MV E Lrdljpld74.9cm/sMV A Uaunioyv42.1cm/sE/A ratio0.9 TDI Lateral E' Peak V4.03cm/sMedial E' Peak V4.48cm/sE/Lateral E'21.3 E/Medial E'19.2 Tricuspid Valve TR Peak Lmkeolnt487iv/sTR Peak Gr.40pdNgLKQE01zoBd LEFT VENTRICLE The left ventricle is normal size. There is normal left ventricular wall thickness. The Ejection Fraction is 50-55%. Transmitral Doppler flow pattern is Grade 2-3 filling dynamics. markedely increased la volume index of 70 mm/sqm. RIGHT VENTRICLE The right ventricle is normal size. The right ventricular systolic function is normal. ATRIA The left atrium is moderately dilated. The right atrium is moderately dilated. The interatrial septum is intact with no evidence for an atrial septal defect. AORTIC VALVE The aortic valve is trileaflet. The aortic valve is mildly to moderately sclerotic. There is trace to mild aortic regurgitation. MITRAL VALVE The mitral valve is thickened but opens well. Mitral regurgitation is moderate to severe. TRICUSPID VALVE The tricuspid valve is normal in structure. There is moderate tricuspid regurgitation. Right ventricular systolic pressure is estimated at 45 mmHg. There is moderate pulmonary hypertension. PULMONIC VALVE The pulmonary valve is normal in structure. There is mild pulmonic valvular regurgitation. GREAT VESSELS The aortic root is normal size. The aortic root displays mild sclerocalcific changes of the aortic root. ivc appears mildly dilated,with normal inspiratory collpse,not measured. PERICARDIAL EFFUSION There is no pericardial effusion. <Conclusion> The left ventricle is normal size. The Ejection Fraction is 50-55%. Transmitral Doppler flow pattern is Grade 2-3 filling dynamics. markedely increased la volume index of 70 mm/sqm. The left atrium is moderately dilated. The right atrium is moderately dilated. There is trace to mild aortic regurgitation. Mitral regurgitation is moderate to severe. There is moderate tricuspid regurgitation. Right ventricular systolic pressure is estimated at 45 mmHg. There is moderate pulmonary hypertension. The aortic root is normal size. The aortic root displays mild sclerocalcific changes of the aortic root. ivc appears mildly dilated,with normal inspiratory collpse,not measured. There is no pericardial effusion.
--- NOTE | 2018-04-29 13:34 | RAD ---
Chest x-ray single frontal view History: Spiculated lung mass. Comparison: 04/28/2018 Findings: Persistent moderate right and small left pleural effusion. Prominent consolidative changes in the right mid to lower lung zones as well as the left lung base. Chin obscures evaluation of the lung apices where there were spiculated masses on recent chest CT. Right hilar prominence. Atherosclerotic calcification at the aortic knob. Prominent upper mediastinum likely related to prominent thyromegaly. Cardiomegaly. Degenerative changes in the spine and shoulders. Calcific densities seen at the axilla bilaterally as well as within right subcoracoid region. Impression: Persistent moderate right and small left pleural effusion. Prominent consolidative changes in the right mid to lower lung zones as well as the left lung base. Chin obscures evaluation of the lung apices where there were spiculated masses on recent chest CT. Right hilar prominence. Atherosclerotic calcification at the aortic knob. Prominent upper mediastinum likely related to prominent thyromegaly. Cardiomegaly. Degenerative changes in the spine and shoulders. Calcific densities seen at the axilla bilaterally as well as within right subcoracoid region.
--- NOTE | 2018-04-29 14:52 | PN ---
DATE: 04/29/2018 ENDO FOLLOWUP NOTE LOCATION: In ICU room 12. SUBJECTIVE: This is an 87-year-old female presenting here with rapid atrial fibrillation and is now being followed closely for hemodynamic monitoring in the ICU and also being followed for metabolic management of hyperthyroidism. Her repeat thyroid studies today showed a T4 or thyroxine level of 7.7 with a TSH of 0.04. Her chemistries showed a BUN of 19, sodium 136, potassium 4.1, chloride 99, CO2 of 29, glucose 150, and creatinine 0.6. ASSESSMENT: This is an 87-year-old female with rapid atrial fibrillation with underlying subclinical hyperthyroidism with a normal total T4 and a suppressed TSH level as noted with an underlying toxic multinodular goiter. PLAN OF MANAGEMENT: We will continue the Tapazole given as 10 mg p.o. t.i.d. after meals, at least for inpatient thyroid management and will eventually be given a maintenance dosing of Tapazole given as 10 mg once daily as ordered. We will obtain serial chemistries and supplement accordingly as needed. We will also obtain serial thyroid studies and titrate the dose regimen accordingly. We will follow. Nicole Apodaca MD
--- NOTE | 2018-04-29 16:49 | CP.PCM.PN ---
<Xochilt Pino - Last Filed: 04/29/18 17:34> Subjective - Date & Time of Evaluation Date of Evaluation: 04/29/18 Time of Evaluation: 16:44 - Subjective Subjective: PGY3 progress note for cardiology Pt seen and examined at bedside. No acute events overnight. Pt is sitting with family. Currently denies having any SOB. Family states that for past 2 weeks, pt has had progressively worsening SOB. She has also developed urinary i ncontinence but denies having any dysuria or hematuria. Patient denies having any palpitaitons, CP, abd pain, N/V/D/c, F/C, cough, weight changes, fatigue, hair or skin changes. Objective - Vital Signs/Intake and Output Vital Signs (last 24 hours): Temp Pulse Resp BP Pulse Ox 98.1 F 94 H 25 H 156/98 H 98 04/29/18 12:00 04/29/18 16:12 04/29/18 16:12 04/29/18 12:00 04/29/18 12:00 Intake and Output: 04/29/18 04/29/18 06:59 18:59 Intake Total 744.6 428.8 Output Total 1150 Balance -405.4 428.8 - Medications Medications: Current Medications Acetaminophen (Tylenol 325mg Tab) 650 mg PO Q6 PRN PRN Reason: fever+pain Famotidine (Pepcid) 20 mg PO BID [facility] Last Admin: 04/29/18 09:45 Dose: 20 mg Furosemide (Lasix) 20 mg IVP DAILY [facility] Last Admin: 04/29/18 09:54 Dose: 20 mg Hydrocortisone Sodium Succinate (Solu-Cortef) 50 mg IV Q8H [facility] Last Admin: 04/29/18 08:00 Dose: 50 mg Heparin Sodium/Sodium Chloride (Heparin 37729 Units/250ml 1/2 Normal Saline) 25,000 units in 250 mls @ 9.253 mls/hr IV .Q24H PRN; Protocol PRN Reason: PROTOCOL Last Titration: 04/29/18 11:00 Dose: 12 units/kg/hr, 9.253 mls/hr Ceftriaxone Sodium 1 gm/ (Sodium Chloride) 100 mls @ 100 mls/hr IVPB Q24H [facility]; Protocol Last Admin: 04/28/18 19:41 Dose: 100 mls/hr Influenza Virus Vaccine (Flucelvax Quad 1304-7354 Syr) 60 mcg IM .ONCE ONE Stop: 04/30/18 10:01 Methimazole (Tapazole) 10 mg PO TID [facility] Last Admin: 04/29/18 14:31 Dose: 10 mg Pneumococcal Polyvalent Vaccine (Pneumovax 23 Vaccine) 0.5 ml IM .ONCE ONE Stop: 04/30/18 10:01 Propranolol HCl (Inderal) 20 mg PO TID [facility] Last Admin: 04/29/18 14:31 Dose: 20 mg - Labs Labs: 04/29/18 06:28 04/29/18 06:28 PT 11.1 SECONDS (9.7-12.2) 04/28/18 10:30 INR 1.0 04/28/18 10:30 APTT 185 SECONDS (21-34) H* D 04/29/18 08:40 - Constitutional Appears: Non-toxic, No Acute Distress - Head Exam Head Exam: ATRAUMATIC, NORMOCEPHALIC - ENT Exam ENT Exam: Mucous Membranes Moist - Respiratory Exam Respiratory Exam: Clear to Ausculation Bilateral. absent: Accessory Muscle Use, Rales, Rhonchi, Wheezes, Respiratory Distress - Cardiovascular Exam Cardiovascular Exam: Irregular Rhythm, +S1, +S2 - GI/Abdominal Exam GI & Abdominal Exam: Soft, Normal Bowel Sounds. absent: Distended, Firm, Guarding, Rigid, Tenderness, Organomegaly - Extremities Exam Extremities Exam: absent: Pedal Edema, Tenderness - Neurological Exam Neurological Exam: Alert, Awake, Oriented x3 - Psychiatric Exam Psychiatric exam: Normal Affect, Normal Mood - Skin Skin Exam: Dry, Intact, Normal Color, Warm Assessment and Plan - Assessment and Plan (Free Text) Assessment: 87 year old female with past medical history of HTN and thyroid goiter is admitted for worsening SOB. Cardiology is consulted for a fib and CHF. On admission, pt noted to have ProBNP of 1190 and d dimer was elevated at 936. Pt underwent CT scan with contrast which was negative for PE but positive for pulmonary nodules. After receiving iodinated contrast, there was concern pt went into thyrotoxicosis and thyroid storm due to significantly low TSH of .04. Pt was transferred to ICU A fib - Likely 2/2 thyrotoxicocis - Pt received cardizem for rate control - Continue heparin drip for AC - Echo showed EF of 55%, moderate pulm HTN, no pericardial effusion CHF exacerbation - Continue diuresis with lasixs 20 IVP QD Thyroid goiter - TSH of .04 T4 7.77 free T4 1.15 - Continue management per primary team - Currently receiving methimazole, Solu-cortef and inderal Pulmonary nodule - S/P thoracocentesis by pulm, Dr. Villalobos - Pending pleural effusion results. Case will be discussed with attending, Dr. Esposito <Pedro Esposito - Last Filed: 04/30/18 05:22> Objective - Vital Signs/Intake and Output Vital Signs (last 24 hours): Temp Pulse Resp BP Pulse Ox 97.7 F 114 H 20 157/92 H 97 04/29/18 21:25 04/29/18 21:25 04/29/18 21:25 04/29/18 21:25 04/29/18 21:25 Intake and Output: 04/29/18 04/30/18 18:59 06:59 Intake Total 697.4 125 Balance 697.4 125 - Medications Medications: Current Medications Acetaminophen (Tylenol 325mg Tab) 650 mg PO Q6 PRN PRN Reason: fever+pain Alprazolam (Xanax) 0.25 mg PO HS PRN PRN Reason: Agitation Stop: 05/06/18 22:01 Last Admin: 04/29/18 22:10 Dose: 0.25 mg Enoxaparin Sodium (Lovenox) 80 mg SC Q12 [facility] Last Admin: 04/29/18 22:43 Dose: Not Given Famotidine (Pepcid) 20 mg PO BID [facility] Last Admin: 04/29/18 17:43 Dose: 20 mg Furosemide (Lasix) 20 mg IVP DAILY [facility] Last Admin: 04/29/18 09:54 Dose: 20 mg Hydrocortisone Sodium Succinate (Solu-Cortef) 50 mg IV Q8H [facility] Last Admin: 04/30/18 00:00 Dose: Not Given Ceftriaxone Sodium 1 gm/ (Sodium Chloride) 100 mls @ 100 mls/hr IVPB Q24H [facility]; Protocol Last Admin: 04/29/18 17:44 Dose: 100 mls/hr Azithromycin 500 mg/ Sodium (Chloride) 250 mls @ 250 mls/hr IVPB DAILY@1800 [facility]; Protocol Last Admin: 04/29/18 18:29 Dose: 250 mls/hr Influenza Virus Vaccine (Flucelvax Quad 3598-0698 Syr) 60 mcg IM .ONCE ONE Stop: 04/30/18 10:01 Lorazepam (Ativan) 0.5 mg IVP ONCE ONE Stop: 04/30/18 05:03 Methimazole (Tapazole) 10 mg PO TID [facility] Last Admin: 04/29/18 18:29 Dose: 10 mg Pneumococcal Polyvalent Vaccine (Pneumovax 23 Vaccine) 0.5 ml IM .ONCE ONE Stop: 04/30/18 10:01 Propranolol HCl (Inderal) 20 mg PO TID [facility] Last Admin: 04/29/18 17:43 Dose: 20 mg - Labs Labs: 04/29/18 06:28 04/29/18 06:28 PT 11.1 SECONDS (9.7-12.2) 04/28/18 10:30 INR 1.0 04/28/18 10:30 APTT 185 SECONDS (21-34) H* D 04/29/18 08:40 Assessment and Plan - Assessment and Plan (Free Text) Assessment: Patient seen and evaluated personally by me. plan of care d/w the medical claims manager and as documented
--- NOTE | 2018-04-29 17:07 | US ---
Limited right bandar thorax ultrasound HISTORY: Pleural effusion. COMPARISON: X-ray dated 04/29/2018 Technique: Limited right bandar thorax ultrasound was performed. Findings: Right pleural effusion was identified and marked. Thoracentesis to be performed by Dr. Villalobos. Impression: Limited right bandar thorax ultrasound for identification of a right pleural effusion.
--- NOTE | 2018-04-29 17:12 | CP.PCM.PN ---
Subjective - Date & Time of Evaluation Date of Evaluation: 04/29/18 Time of Evaluation: 17:05 - Subjective Subjective: Thoracentesis Procedural Note Ultrasound used to alexus location on the posterior portion of the 8th intercostal space. Procedure done under aseptic conditions - area cleaned with Chloraprep Antiseptic Local Anesthesia Used: Lidocaine 1% Approximately 600mL of straw color fluid removed Post procedure x-ray ordered No immediate complications Patient tolerated procedure well Objective - Vital Signs/Intake and Output Vital Signs (last 24 hours): Temp Pulse Resp BP Pulse Ox 98.3 F 94 H 25 H 129/80 98 04/29/18 16:00 04/29/18 16:12 04/29/18 16:12 04/29/18 16:00 04/29/18 16:00 Intake and Output: 04/29/18 04/29/18 06:59 18:59 Intake Total 744.6 447.4 Output Total 1150 Balance -405.4 447.4 - Medications Medications: Current Medications Acetaminophen (Tylenol 325mg Tab) 650 mg PO Q6 PRN PRN Reason: fever+pain Famotidine (Pepcid) 20 mg PO BID [facility] Last Admin: 04/29/18 09:45 Dose: 20 mg Furosemide (Lasix) 20 mg IVP DAILY [facility] Last Admin: 04/29/18 09:54 Dose: 20 mg Hydrocortisone Sodium Succinate (Solu-Cortef) 50 mg IV Q8H [facility] Last Admin: 04/29/18 08:00 Dose: 50 mg Heparin Sodium/Sodium Chloride (Heparin 79797 Units/250ml 1/2 Normal Saline) 25,000 units in 250 mls @ 9.253 mls/hr IV .Q24H PRN; Protocol PRN Reason: PROTOCOL Last Titration: 04/29/18 11:00 Dose: 12 units/kg/hr, 9.253 mls/hr Ceftriaxone Sodium 1 gm/ (Sodium Chloride) 100 mls @ 100 mls/hr IVPB Q24H [facility]; Protocol Last Admin: 04/28/18 19:41 Dose: 100 mls/hr Influenza Virus Vaccine (Flucelvax Quad 0916-3719 Syr) 60 mcg IM .ONCE ONE Stop: 04/30/18 10:01 Methimazole (Tapazole) 10 mg PO TID [facility] Last Admin: 04/29/18 14:31 Dose: 10 mg Pneumococcal Polyvalent Vaccine (Pneumovax 23 Vaccine) 0.5 ml IM .ONCE ONE Stop: 04/30/18 10:01 Propranolol HCl (Inderal) 20 mg PO TID [facility] Last Admin: 04/29/18 14:31 Dose: 20 mg - Labs Labs: 04/29/18 06:28 04/29/18 06:28 PT 11.1 SECONDS (9.7-12.2) 04/28/18 10:30 INR 1.0 04/28/18 10:30 APTT 185 SECONDS (21-34) H* D 04/29/18 08:40
[2018-04-29 18:24] LABS: BODY FLUID TYPE PLEURAL/THORACENTESI
[2018-04-29] MEDS: Azithromycin 500 MG in Sodium Chloride 0.9% 250 ML IVPB SCH (18:29)
[2018-04-29 18:57] LABS: BF GROSS APPEARANCE SL CLOUDY (CLEAR)
[2018-04-29 19:30] LABS: BODY FLUID MONO/MACROPHAGE 1 % (0-0)
--- NOTE | 2018-04-29 20:25 | PCM.FALL ---
Post Fall Progress Note - Post Fall Fall Date: 04/29/18 Fall Time: 19:50 Description of Fall: Patient was agitated and family in room in an attempt to restrain her, caused patient to fall forward onto floor on knees. Fall was witnessed by nursing and family. No trauma to head or LOC - Post Fall Exam Vital Sign: Temp Pulse Resp BP Pulse Ox 98.3 F 99 H 17 121/72 99 04/29/18 16:00 04/29/18 19:00 04/29/18 19:00 04/29/18 19:00 04/29/18 18:23 Skull Exam: Negative for: Scalp wound, Scalp hematoma, Scalp depression, Ridge in skull Eye Exam: Negative for: Pupils equal, Pupils reactive Ear Exam: Negative for: Discharge, Bleeding Nose Exam: Negative for: Discharge, Bleeding Skin Exam: Negative for: Colour, Lacerations, Grazes, Bruising Mouth Exam: Negative for: Tongue bitten, Teeth dislodge Neck Exam: Negative for: Tenderness, Tingling, Weakness Spinal Exam: Negative for: Tenderness, Tingling, Weakness Chest Exam: Negative for: Difficulty breathing, Tenderness in collar bones, Tenderness in ribs Abdomen Exam: Negative for: Tenderness Pelvic Exam: Negative for: Tenderness, Hematuria Arm Exam: Negative for: Deformity, Alteration in range of movement Impression/Plan: Patient has no complaint. In stable condition No treatment indicated at this time Please notify if there is a change in status Ida Graham, PGY-1
[2018-04-29] MEDS: Enoxaparin 80 mg Syringe SC SCH (22:43)
--- NOTE | 2018-04-29 23:38 | CP.PCM.PCO ---
Physician Communication Note - Physician Communication Note Physician Communication Note: Pt very agitated, hitting family and pushing me. Ativan 0.5mgIV ordered.1:1
[2018-04-30 07:29] LABS: BASO % 0.3 % (0.0-2.0); EOS % 0.3 % (0.0-4.0); HEMOGLOBIN 10.4 g/dL (11.0-16.0); LYMPH # 2.1 K/uL (1.0-4.3); LYMPH % 22.1 % (20.0-40.0); MEAN CELL VOLUME 71.5 fL (81.0-99.0); MEAN CORPUSCULAR HEMOGLOBIN 22.1 pg (27.0-31.0); MEAN PLATELET VOLUME 8.3 fL (7.2-11.7); MONO # 0.7 K/uL (0.0-0.8); MONO % 7.2 % (0.0-10.0); NEUT # 6.8 K/uL (1.8-7.0); NEUT % 70.1 % (50.0-75.0); RBC 4.7 Mil/uL (3.80-5.20); RED CELL DISTRIBUTION WIDTH 18.3 % (11.5-14.5)
[2018-04-30 07:39] LABS: ALB/GLOB RATIO 1.2 (1.0-2.1); ALBUMIN 3.3 g/dL (3.5-5.0); ALT/SGPT 37 U/L (9-52); AST/SGOT 27 U/L (14-36); BLOOD UREA NITROGEN 21 mg/dL (7-17); CALCIUM 8.5 mg/dl (8.6-10.4); GFR NON-AFRICAN AMERICAN > 60
[2018-04-30 07:42] LABS: WHITE BLOOD COUNT 9.7 K/uL (4.8-10.8)
--- NOTE | 2018-04-30 07:55 | CP.PCM.PN ---
<Cachorro Hines - Last Filed: 04/30/18 16:44> Subjective - Date & Time of Evaluation Date of Evaluation: 04/30/18 Time of Evaluation: 07:55 - Subjective Subjective: PGY-1 Medicine Progress Note for Dr. Fatima Patient seen and examined this AM with [id number] at bedside s/p successful thoracentesis. Patient reported to be very agitated overnight, attempted to hit staff and daughter in law with cane. Received Ativan this morning, resting comfortably. 12 pt ROS unattainable due to clinical status, some mild underlying dementia also present per family. Objective - Vital Signs/Intake and Output Vital Signs (last 24 hours): Temp Pulse Resp BP Pulse Ox 97.7 F 114 H 20 157/92 H 97 04/29/18 21:25 04/29/18 21:25 04/29/18 21:25 04/29/18 21:25 04/29/18 21:25 Intake and Output: 04/30/18 04/30/18 06:59 18:59 Intake Total 145 Balance 145 - Medications Medications: Current Medications Acetaminophen (Tylenol 325mg Tab) 650 mg PO Q6 PRN PRN Reason: fever+pain Alprazolam (Xanax) 0.25 mg PO HS PRN PRN Reason: Agitation Stop: 05/06/18 22:01 Last Admin: 04/29/18 22:10 Dose: 0.25 mg Enoxaparin Sodium (Lovenox) 80 mg SC Q12 [facility] Last Admin: 04/29/18 22:43 Dose: Not Given Famotidine (Pepcid) 20 mg PO BID [facility] Last Admin: 04/29/18 17:43 Dose: 20 mg Furosemide (Lasix) 20 mg IVP DAILY [facility] Last Admin: 04/29/18 09:54 Dose: 20 mg Hydrocortisone Sodium Succinate (Solu-Cortef) 50 mg IV Q8H [facility] Last Admin: 04/30/18 00:00 Dose: Not Given Ceftriaxone Sodium 1 gm/ (Sodium Chloride) 100 mls @ 100 mls/hr IVPB Q24H [facility]; Protocol Last Admin: 04/29/18 17:44 Dose: 100 mls/hr Azithromycin 500 mg/ Sodium (Chloride) 250 mls @ 250 mls/hr IVPB DAILY@1800 [facility]; Protocol Last Admin: 04/29/18 18:29 Dose: 250 mls/hr Influenza Virus Vaccine (Flucelvax Quad 1324-3390 Syr) 60 mcg IM .ONCE ONE Stop: 04/30/18 10:01 Methimazole (Tapazole) 10 mg PO TID [facility] Last Admin: 04/29/18 18:29 Dose: 10 mg Pneumococcal Polyvalent Vaccine (Pneumovax 23 Vaccine) 0.5 ml IM .ONCE ONE Stop: 04/30/18 10:01 Propranolol HCl (Inderal) 20 mg PO TID [facility] Last Admin: 04/29/18 17:43 Dose: 20 mg - Labs Labs: 04/30/18 07:02 04/30/18 07:02 PT 11.1 SECONDS (9.7-12.2) 04/28/18 10:30 INR 1.0 04/28/18 10:30 APTT 185 SECONDS (21-34) H* D 04/29/18 08:40 - Constitutional Appears: Non-toxic, No Acute Distress - Head Exam Head Exam: ATRAUMATIC, NORMAL INSPECTION, NORMOCEPHALIC - Eye Exam Eye Exam: EOMI, Normal appearance - ENT Exam ENT Exam: Mucous Membranes Moist, Normal Exam - Neck Exam Neck Exam: Full ROM, Normal Inspection, Thyromegaly. absent: Tenderness - Respiratory Exam Respiratory Exam: Clear to Ausculation Bilateral, NORMAL BREATHING PATTERN. absent: Accessory Muscle Use, Rales, Rhonchi, Wheezes, Respiratory Distress, Stridor - Cardiovascular Exam Cardiovascular Exam: REGULAR RHYTHM, +S1, +S2 - GI/Abdominal Exam GI & Abdominal Exam: Soft, Normal Bowel Sounds. absent: Distended, Firm, Guarding, Rigid, Tenderness, Organomegaly, Rebound - Extremities Exam Extremities Exam: Normal Capillary Refill, Normal Inspection. absent: Calf Tenderness, Pedal Edema - Back Exam Back Exam: NORMAL INSPECTION - Neurological Exam Neurological Exam: Alert - Skin Skin Exam: Dry, Intact, Normal Color, Warm Assessment and Plan - Assessment and Plan (Free Text) Assessment: 87 year old [place] F with past medical history of HTN and thyroid goiter is admitted for worsening SOB. On admission, pt noted to have ProBNP of 1190 and d dimer was elevated at 936. Pt underwent CT scan with contrast which was negative for PE but positive for pulmonary nodules. After receiving iodinated co ntrast, there was concern pt went into thyrotoxicosis and thyroid storm due to significantly low TSH of 0.04. Plan: Rapid Atrial fibrillation CHF exacerbation -HR in the 70s -ECHO: EF of 55%, moderate pulm HTN, no pericardial effusion -Cardiology (Dr. Esposito) recs appreciated -c/w propanolol 20 mg PO TID -lasix 20 IVP daily for CHF exacerbation Thyroid Goiter, hard masses on palpation -TSH 0.04/free T4 1.15 -Thyroid U/S: Markedly enlarged heterogeneous gland with 6 nodules. Recommended f/u: radionuclide scan, FNA should also be considered -Endocrinology recs (Dr. Apodaca) appreciated -continue tapazole 10 mg PO TID after meals; eventually switch to maintenance dose 10 mg PO daily -further recs following serial studies -Methimazole 10 mg PO BID [facility] -Propanolol 20 mg PO TID [facility] -Digoxin 0.25 mg IVP Daily [facility] -Labetalol 25 mg IVP q6h prn -KCl 40 mgEq in D5W Spiculated Masses in Lungs -Concern for potential malignancy/metastasis, per Dr. Villalobos - Palliative care consulted, recs appreciated -CXR: cardiomegaly. numerous coarse calcifications in R neck and b/l axilla. R paratracheal mass. -CT angiogram: no PE. R-sided effusion with/ atelectasis. Spiculated pleural nodularity of L lung apex and R lung apex. - Pulm recs (Dr Villalobos) appreciated -s/p successful thoracentesis with 600 cc strawberry colored fluid removed -repeat CXR: Interval worsening L pleural effusion and potential underlying atelectasis or infiltrate at L base laterally. Improved R pleural effusion with underlying limited infiltrate remaining. Borderline pulmonary vascular congestion. Elevated D-dimer -D-dimer 936 -BNP 1190 -trops negative -patient not in acute sob -CT angio: no PE. R-sided effusion with/ atelectasis. Spiculated pleural nodularity of L lung apex and R lung apex. -Pulm recs (Dr. Villalobos) appreciated Ppx, Diet, Disposition -DVT ppx: lovenox 80 q12 -GI ppx: pepcid 20 BID -Diet: HHD Case discussed with Dr. Akua Hines DO, PGY-1 <Frankie Fatima - Last Filed: 04/30/18 19:04> Objective - Vital Signs/Intake and Output Vital Signs (last 24 hours): Temp Pulse Resp BP Pulse Ox 97.4 F L 73 20 143/79 93 L 04/30/18 16:10 04/30/18 16:10 04/30/18 16:10 04/30/18 16:10 04/30/18 16:10 Intake and Output: 04/30/18 04/30/18 06:59 18:59 Intake Total 145 Balance 145 - Medications Medications: Current Medications Acetaminophen (Tylenol 325mg Tab) 650 mg PO Q6 PRN PRN Reason: fever+pain Digoxin (Lanoxin) 0.25 mg IVP DAILY@1800 [facility] Last Admin: 04/30/18 18:58 Dose: 0.25 mg Enoxaparin Sodium (Lovenox) 80 mg SC Q12 [facility] Last Admin: 04/30/18 11:34 Dose: Not Given Famotidine (Pepcid) 20 mg PO BID [facility] Last Admin: 04/30/18 17:31 Dose: Not Given Furosemide (Lasix) 20 mg IVP DAILY [facility] Last Admin: 04/30/18 11:33 Dose: 20 mg Ceftriaxone Sodium 1 gm/ (Sodium Chloride) 100 mls @ 100 mls/hr IVPB Q24H [facility]; Protocol Last Admin: 04/30/18 18:59 Dose: 100 mls/hr Azithromycin 500 mg/ Sodium (Chloride) 250 mls @ 250 mls/hr IVPB DAILY@1800 [facility]; Protocol Last Admin: 04/30/18 18:59 Dose: 250 mls/hr Potassium Chloride/Dextrose/Sod Cl (Potassium Chl 40 Meq In D5-1/2ns) 1,000 mls @ 100 mls/hr IV .Q10H [facility] Last Admin: 04/30/18 12:03 Dose: 100 mls/hr Labetalol HCl (Trandate) 25 mg IVP Q6H PRN PRN Reason: Heart rate Last Admin: 04/30/18 12:03 Dose: 25 mg Lorazepam (Ativan) 1 mg IVP TID PRN PRN Reason: Agitation Methimazole (Tapazole) 10 mg PO BID [facility] Last Admin: 04/30/18 17:31 Dose: Not Given Propranolol HCl (Inderal) 20 mg PO TID [facility] Last Admin: 04/30/18 17:30 Dose: Not Given - Labs Labs: 04/30/18 07:02 04/30/18 07:02 PT 11.1 SECONDS (9.7-12.2) 04/28/18 10:30 INR 1.0 04/28/18 10:30 APTT 185 SECONDS (21-34) H* D 04/29/18 08:40 Attending/Attestation - Attestation I have personally seen and examined this patient.: Yes I have fully participated in the care of the patient.: Yes I have reviewed all pertinent clinical information, including history, physical exam and plan: Yes Notes (Text): 04/30/18 18:59 Medical attending: Patient was seen and examined by me. Reviewed the above note by the resident and agree with the above The patient was not agitated however non cooperative when we came and saw her t his morning. Family member was present at bedside Overnight the patient was reportedly extremely agitated and was picking up a cane and trying to strike people with it She was given IV ativan to help calm her Family at the bedside explain they do not want further biopsy of the lung or of the thyroid gland. Because of lack of public transportation inspector it is not clear to me if they wish for her to be DNR/DNI at this time however we will have to come back with a public transportation inspector at some point to have discussion with reguards to palliative care and CODE status There is a possibilty this alter mental status we are seeing is due from metastatisc disease to the brain - or from the lingering affects of the IV contrast given to someone with hyperthyroidism. A CT of the head without contrast ordered. And given that she has new discovered atrial fibrillation there is also a possiblity of CVA from thrombo-embolic event RNs explain that it is often difficult to administer medication due to patient's agitation Frankie Fatima
[2018-04-30] MEDS ORDERED: Potassium Chloride 20 mEq ER Tab PO STA (09:51)
[2018-04-30] MEDS ORDERED: Pneumococcal 23-Valent Vaccine IM ONE (10:00)
[2018-04-30] MEDS ORDERED: Influenza Vaccine 60 mcg/0.5 mL SYR (4YR UP) IM ONE (10:00)
[2018-04-30] MEDS ORDERED: Potassium Chloride 20 mEq ER Tab PO ONE (10:30)
--- NOTE | 2018-04-30 11:19 | RAD ---
Date of service: 04/30/2018 HISTORY: s/p thoracentesis COMPARISON: Portable chest 04/29/2018. FINDINGS: LUNGS: Patient rotated toward the left limiting comparison and overall valuation of the hilar regions bilaterally. Increased density at the mid to inferior left lung zone laterally suggests pleural effusion though mild and potentially loculated given lack of medial extent of the effusion. Underlying left basilar infiltrate is not excluded. Patchy opacity at the right base persists although right pleural effusion is likely diminished at the right costophrenic sulcus is beginning to become defined. No pneumothorax bilaterally. PLEURA: As above. CARDIOVASCULAR: Calcific atherosclerotic changes are seen related to the thoracic aorta. Cardiomegaly appears stable. Borderline pulmonary vascular congestion. OSSEOUS STRUCTURES: No significant abnormalities. VISUALIZED UPPER ABDOMEN: Normal. OTHER FINDINGS: Calcifications at the right neck base likely reflect extensive calcified goiter. Clinically correlate. Calcified axillary lymph nodes identified bilaterally. IMPRESSION: Findings is insert interval worsening including left pleural effusion and potential underlying atelectasis or infiltrate at the left base laterally. Diminishing opacity at the inferior right lung zone may reflect improved right pleural effusion with underlying limited infiltrate remaining. Borderline pulmonary vascular congestion.
[2018-04-30] MEDS: Enoxaparin 80 mg Syringe SC SCH ×2 (11:34→21:28)
--- NOTE | 2018-04-30 11:47 | RAD ---
Date of service: 04/29/2018 HISTORY: s/p thoracentesis, re-eval pleural effusions COMPARISON: Comparison chest dated 04/29/2018 and CTA of the chest dated 04/28/2018. FINDINGS: LUNGS: Again noted is a right-sided effusion with right lower lobe atelectatic changes. Minor left basilar atelectasis.. Suspect trace left effusion and minor left basilar atelectasis.. Previously noted spiculated pleural-based nodular density left lung apex and additional spiculated nodular density right lung apex poorly seen on this study PLEURA: As above. No pneumothorax apparent. CARDIOVASCULAR: Mild moderate aortic atherosclerotic calcification present. Marked cardiomegaly. Moderately large hiatal hernia. OSSEOUS STRUCTURES: No significant abnormalities. VISUALIZED UPPER ABDOMEN: Grossly unremarkable OTHER FINDINGS: . Markedly enlarged heterogeneous thyroid gland with coarse and punctate calcifications resulting and marked tracheal compression less well seen compared to high-resolution CT scan. IMPRESSION: Right-sided effusion with right basilar atelectasis. Suspect trace left effusion and minor left basilar atelectasis Markedly enlarged heterogeneous calcified thyroid gland with compressive effects on the trachea.
[2018-04-30] MEDS: Labetalol 5mg/ml (4ml) IVP PRN (12:03)
[2018-04-30] MEDS: Potassium Chl 40 mEq in D5-1/2 1,000 ML IV SCH ×2 (12:03→21:35)
--- NOTE | 2018-04-30 14:56 | CP.PCM.PN ---
<Xochilt Pino - Last Filed: 04/30/18 14:49> Subjective - Date & Time of Evaluation Date of Evaluation: 04/30/18 Time of Evaluation: 14:49 - Subjective Subjective: Progress note for cardiology Pt seen and examined this am. [id number] at bedside. Pt agitated this am and overnight. received Ativan this am. Pt underwent thoracentesis yesterday and tolerated procedure well. Currently not answering questions due to being a sleep. Objective - Vital Signs/Intake and Output Vital Signs (last 24 hours): Temp Pulse Resp BP Pulse Ox 97.5 F L 75 20 151/81 H 97 04/30/18 11:23 04/30/18 12:58 04/29/18 21:25 04/30/18 12:58 04/29/18 21:25 Intake and Output: 04/30/18 04/30/18 06:59 18:59 Intake Total 145 Balance 145 - Medications Medications: Current Medications Acetaminophen (Tylenol 325mg Tab) 650 mg PO Q6 PRN PRN Reason: fever+pain Digoxin (Lanoxin) 0.25 mg IVP DAILY@1800 [facility] Enoxaparin Sodium (Lovenox) 80 mg SC Q12 [facility] Last Admin: 04/30/18 11:34 Dose: Not Given Famotidine (Pepcid) 20 mg PO BID [facility] Last Admin: 04/30/18 10:51 Dose: Not Given Furosemide (Lasix) 20 mg IVP DAILY [facility] Last Admin: 04/30/18 11:33 Dose: 20 mg Hydrocortisone Sodium Succinate (Solu-Cortef) 50 mg IV Q8H [facility] Last Admin: 04/30/18 09:05 Dose: Not Given Ceftriaxone Sodium 1 gm/ (Sodium Chloride) 100 mls @ 100 mls/hr IVPB Q24H [facility]; Protocol Last Admin: 04/29/18 17:44 Dose: 100 mls/hr Azithromycin 500 mg/ Sodium (Chloride) 250 mls @ 250 mls/hr IVPB DAILY@1800 [facility]; Protocol Last Admin: 04/29/18 18:29 Dose: 250 mls/hr Potassium Chloride/Dextrose/Sod Cl (Potassium Chl 40 Meq In D5-1/2ns) 1,000 mls @ 100 mls/hr IV .Q10H [facility] Last Admin: 04/30/18 12:03 Dose: 100 mls/hr Labetalol HCl (Trandate) 25 mg IVP Q6H PRN PRN Reason: Heart rate Last Admin: 04/30/18 12:03 Dose: 25 mg Lorazepam (Ativan) 1 mg IVP TID PRN PRN Reason: Agitation Methimazole (Tapazole) 10 mg PO TID [facility] Last Admin: 04/30/18 13:57 Dose: Not Given Propranolol HCl (Inderal) 20 mg PO TID [facility] Last Admin: 04/30/18 13:57 Dose: Not Given - Labs Labs: 04/30/18 07:02 04/30/18 07:02 PT 11.1 SECONDS (9.7-12.2) 04/28/18 10:30 INR 1.0 04/28/18 10:30 APTT 185 SECONDS (21-34) H* D 04/29/18 08:40 - Constitutional Appears: Non-toxic, No Acute Distress - Head Exam Head Exam: ATRAUMATIC, NORMOCEPHALIC - ENT Exam ENT Exam: Mucous Membranes Moist - Respiratory Exam Respiratory Exam: Clear to Ausculation Bilateral. absent: Rales, Rhonchi, Wheezes - Cardiovascular Exam Cardiovascular Exam: REGULAR RHYTHM, +S1, +S2 - GI/Abdominal Exam GI & Abdominal Exam: Soft. absent: Rigid, Tenderness - Extremities Exam Extremities Exam: absent: Pedal Edema, Tenderness - Neurological Exam Neurological Exam: absent: Alert, Awake - Psychiatric Exam Psychiatric exam: absent: Normal Affect, Normal Mood - Skin Skin Exam: Dry, Intact, Normal Color, Warm Assessment and Plan - Assessment and Plan (Free Text) Assessment: 87 year old female with past medical history of HTN and thyroid goiter is admitted for worsening SOB. Cardiology is consulted for a fib and CHF. On admission, pt noted to have ProBNP of 1190 and d dimer was elevated at 936. Pt underwent CT scan with contrast which was negative for PE but positive for pulmonary nodules. After receiving iodinated contrast, there was concern pt went into thyrotoxicosis and thyroid storm due to significantly low TSH of .04. Pt was transferred to ICU A fib - Likely 2/2 thyrotoxicocis - Continue propranolol 20 mg po TID. If tachycardia persists, will consider increasing dose. - Continue heparin drip for AC - Echo showed EF of 55%, moderate pulm HTN, no pericardial effusion CHF exacerbation - Continue diuresis with lasixs 20 IVP QD Thyroid goiter - TSH of .04 T4 7.77 free T4 1.15 - Continue management per primary team - Currently receiving methimazole, Solu-cortef and inderal Pulmonary nodule - S/P thoracocentesis by pulm, Dr. Villalobos - Pending pleural effusion results. Case will be discussed with attending, Dr. Esposito <Pedro Esposito - Last Filed: 04/30/18 22:22> Objective - Vital Signs/Intake and Output Vital Signs (last 24 hours): Temp Pulse Resp BP Pulse Ox 97.4 F L 90 20 143/79 93 L 04/30/18 16:10 04/30/18 18:00 04/30/18 16:10 04/30/18 16:10 04/30/18 16:10 - Medications Medications: Current Medications Acetaminophen (Tylenol 325mg Tab) 650 mg PO Q6 PRN PRN Reason: fever+pain Digoxin (Lanoxin) 0.25 mg IVP DAILY@1800 [facility] Last Admin: 04/30/18 18:58 Dose: 0.25 mg Enoxaparin Sodium (Lovenox) 80 mg SC Q12 [facility] Last Admin: 04/30/18 21:28 Dose: Not Given Famotidine (Pepcid) 20 mg IVP Q12 [facility] Last Admin: 04/30/18 21:35 Dose: 20 mg Furosemide (Lasix) 20 mg IVP DAILY [facility] Last Admin: 04/30/18 11:33 Dose: 20 mg Haloperidol Lactate (Haldol) 5 mg IVP ONCE PRN PRN Reason: Agitation Ceftriaxone Sodium 1 gm/ (Sodium Chloride) 100 mls @ 100 mls/hr IVPB Q24H [facility]; Protocol Last Admin: 04/30/18 18:59 Dose: 100 mls/hr Azithromycin 500 mg/ Sodium (Chloride) 250 mls @ 250 mls/hr IVPB DAILY@1800 [facility]; Protocol Last Admin: 04/30/18 18:59 Dose: 250 mls/hr Potassium Chloride/Dextrose/Sod Cl (Potassium Chl 40 Meq In D5-1/2ns) 1,000 mls @ 100 mls/hr IV .Q10H [facility] Last Admin: 04/30/18 21:35 Dose: 100 mls/hr Labetalol HCl (Trandate) 25 mg IVP Q6H PRN PRN Reason: Heart rate Last Admin: 04/30/18 12:03 Dose: 25 mg Lorazepam (Ativan) 1 mg IVP TID PRN PRN Reason: Agitation Methimazole (Tapazole) 10 mg PO BID [facility] Last Admin: 04/30/18 17:31 Dose: Not Given Propranolol HCl (Inderal) 20 mg PO TID [facility] Last Admin: 04/30/18 17:30 Dose: Not Given - Labs Labs: 04/30/18 07:02 04/30/18 07:02 PT 11.1 SECONDS (9.7-12.2) 04/28/18 10:30 INR 1.0 04/28/18 10:30 APTT 185 SECONDS (21-34) H* D 04/29/18 08:40 Assessment and Plan - Assessment and Plan (Free Text) Assessment: Patient seen and evaluated personally by me. Plan of care d/w the chief medical director and as documented
--- NOTE | 2018-04-30 17:39 | CP.PCM.CON ---
<Suleiman Wilson - Last Filed: 04/30/18 16:55> History of Present Illness - History of Present Illness History of Present Illness: Pulmonology Consult Note for Dr. Villalobos Reason for Consult - Spiculated Masses in Lungs Patient is an 87 year old female with a past medical history of HTN, dementia and thyroid goiter who presented to the emergency room on 04/28/17 with a complaint of worsening shortness of breath. Patient was found to be afib with RVR at a rate of 124 (according to records) and was admitted to the ICU. There was concern for a PE upon admission due to elevated D-dimer and a CTA was ordered. CTA was negative for PE but showed spiculated masses in the lungs. There was also a notable pleural effusion located on the right side. Patient underwent a sucessful thoracentesis on 04/29 while in the ICU, removing 600cc of straw color fluid. She was later transferred to telemetry on 04/29. Overnight patient became agitated and attempted to hit staff with cane. She was given ativan. Upon evaluation today, patient was restless and unable to be awaken. PMD: Beny PMH: HTN, thyroid goiter and dementia PSH: denies Family: denies Social: denies tobacco, etoh, or recreational drug use Meds: bystolic 10mg BID, non compliant Allergies: NKDA Review of Systems - Review of Systems All systems: reviewed and no additional remarkable complaints except (as per HPI) Past Patient History - Past Medical History & Family History Past Medical History?: Yes - Past Social History Smoking Status: Never Smoked - CARDIAC Hx Hypertension: Yes - ENDOCRINE/METABOLIC Other/Comment: goiter - MUSCULOSKELETAL/RHEUMATOLOGICAL Hx Falls: No - PSYCHIATRIC Hx Substance Use: No - SURGICAL HISTORY Hx Surgeries: No - ANESTHESIA Hx Anesthesia: No Has any member of the family had a problem w/ anesthesia?: No Meds Allergies/Adverse Reactions: Allergies Allergy/AdvReac Type Severity Reaction Status Date / Time No Known Allergies Allergy Verified 04/28/18 10:06 - Medications Medications: Current Medications Acetaminophen (Tylenol 325mg Tab) 650 mg PO Q6 PRN PRN Reason: fever+pain Digoxin (Lanoxin) 0.25 mg IVP DAILY@1800 [facility] Enoxaparin Sodium (Lovenox) 80 mg SC Q12 [facility] Last Admin: 04/30/18 11:34 Dose: Not Given Famotidine (Pepcid) 20 mg PO BID [facility] Last Admin: 04/30/18 10:51 Dose: Not Given Furosemide (Lasix) 20 mg IVP DAILY [facility] Last Admin: 04/30/18 11:33 Dose: 20 mg Ceftriaxone Sodium 1 gm/ (Sodium Chloride) 100 mls @ 100 mls/hr IVPB Q24H [facility]; Protocol Last Admin: 04/29/18 17:44 Dose: 100 mls/hr Azithromycin 500 mg/ Sodium (Chloride) 250 mls @ 250 mls/hr IVPB DAILY@1800 [facility]; Protocol Last Admin: 04/29/18 18:29 Dose: 250 mls/hr Potassium Chloride/Dextrose/Sod Cl (Potassium Chl 40 Meq In D5-1/2ns) 1,000 mls @ 100 mls/hr IV .Q10H [facility] Last Admin: 04/30/18 12:03 Dose: 100 mls/hr Labetalol HCl (Trandate) 25 mg IVP Q6H PRN PRN Reason: Heart rate Last Admin: 04/30/18 12:03 Dose: 25 mg Lorazepam (Ativan) 1 mg IVP TID PRN PRN Reason: Agitation Methimazole (Tapazole) 10 mg PO BID [facility] Propranolol HCl (Inderal) 20 mg PO TID [facility] Last Admin: 04/30/18 15:19 Dose: Not Given Results - Vital Signs Recent Vital Signs: Last Vital Signs Temp 97.4 F L 04/30/18 16:10 Pulse 73 04/30/18 16:10 Resp 20 04/30/18 16:10 BP 143/79 04/30/18 16:10 Pulse Ox 93 L 04/30/18 16:10 - Labs Result Diagrams: 04/30/18 07:02 04/30/18 07:02 Labs: Laboratory Results - last 24 hr 04/29/18 04/30/18 04/30/18 18:24 05:04 07:02 WBC 9.7 D RBC 4.70 Hgb 10.4 L Hct 33.6 L MCV 71.5 L MCH 22.1 L MCHC 31.0 L RDW 18.3 H Plt Count 221 MPV 8.3 Neut % (Auto) 70.1 Lymph % (Auto) 22.1 [place] % (Auto) 7.2 Eos % (Auto) 0.3 Baso % (Auto) 0.3 Neut # (Auto) 6.8 Lymph # (Auto) 2.1 [place] # (Auto) 0.7 Eos # (Auto) 0.0 Baso # (Auto) 0.0 Sodium Potassium Chloride Carbon Dioxide Anion Gap BUN Creatinine Est GFR ( Amer) Est GFR (Non-Af Amer) POC Glucose (mg/dL) 138 H Random Glucose Calcium Phosphorus Magnesium Total Bilirubin AST ALT Alkaline Phosphatase Total Protein Albumin Globulin Albumin/Globulin Ratio Fluid Source Pleural/thoracentesi Fluid Appearance Sl cloudy Fluid WBC 540.0 H Fluid RBC 720.0 H Fluid Tot Cell Count TEST NOT PERFORMED Fluid Neutrophils 1.0 H Fluid Lymphocytes 98.0 H Fld Monocyte/Macrophag 1 H Fluid Comment 04/30/18 07:02 WBC RBC Hgb Hct MCV MCH MCHC RDW Plt Count MPV Neut % (Auto) Lymph % (Auto) [place] % (Auto) Eos % (Auto) Baso % (Auto) Neut # (Auto) Lymph # (Auto) [place] # (Auto) Eos # (Auto) Baso # (Auto) Sodium 140 Potassium 3.0 L Chloride 98 Carbon Dioxide 33 H Anion Gap 11 BUN 21 H Creatinine 0.6 L Est GFR ( Amer) > 60 Est GFR (Non-Af Amer) > 60 POC Glucose (mg/dL) Random Glucose 121 H Calcium 8.5 L Phosphorus 4.1 Magnesium 1.7 Total Bilirubin 0.4 AST 27 ALT 37 Alkaline Phosphatase 96 Total Protein 6.1 L Albumin 3.3 L Globulin 2.8 Albumin/Globulin Ratio 1.2 Fluid Source Fluid Appearance Fluid WBC Fluid RBC Fluid Tot Cell Count Fluid Neutrophils Fluid Lymphocytes Fld Monocyte/Macrophag Fluid Comment Assessment & Plan (1) Multiple lung nodules on CT Assessment and Plan: CTA showed no PE. Right sided pleural effusion w/ateletasis. Spiculated pleural nodularities on L and R lungs. s/p successful thoracentesis on 04/29 * removal of 600cc of straw colored fluid * few mesothelial and rare macrophages seen * Lymphocytes 98; Neutroprils 1; Macrophag 1 * pending further studies * no growth on culture at 24 hours concern for possible mets from thyroid Status: Acute (2) Pleural effusion Status: Acute (3) Thyroid goiter Assessment and Plan: Concern for potential malignancy/mets Thyroid US: Markedly enlarged heterogeneous gland with 6 nodules. Recommended f/u: radionuclide scan, FNA should also be considered continue management per Endocrine/Primary team Status: Acute (4) Atrial fibrillation with RVR Assessment and Plan: continue management per Dr. Esposito Status: Acute <Beny Villalobos S - Last Filed: 04/30/18 18:37> Meds - Medications Medications: Current Medications Acetaminophen (Tylenol 325mg Tab) 650 mg PO Q6 PRN PRN Reason: fever+pain Digoxin (Lanoxin) 0.25 mg IVP DAILY@1800 [facility] Enoxaparin Sodium (Lovenox) 80 mg SC Q12 [facility] Last Admin: 04/30/18 11:34 Dose: Not Given Famotidine (Pepcid) 20 mg PO BID [facility] Last Admin: 04/30/18 17:31 Dose: Not Given Furosemide (Lasix) 20 mg IVP DAILY [facility] Last Admin: 04/30/18 11:33 Dose: 20 mg Ceftriaxone Sodium 1 gm/ (Sodium Chloride) 100 mls @ 100 mls/hr IVPB Q24H [facility]; Protocol Last Admin: 04/29/18 17:44 Dose: 100 mls/hr Azithromycin 500 mg/ Sodium (Chloride) 250 mls @ 250 mls/hr IVPB DAILY@1800 [facility]; Protocol Last Admin: 04/29/18 18:29 Dose: 250 mls/hr Potassium Chloride/Dextrose/Sod Cl (Potassium Chl 40 Meq In D5-1/2ns) 1,000 mls @ 100 mls/hr IV .Q10H [facility] Last Admin: 04/30/18 12:03 Dose: 100 mls/hr Labetalol HCl (Trandate) 25 mg IVP Q6H PRN PRN Reason: Heart rate Last Admin: 04/30/18 12:03 Dose: 25 mg Lorazepam (Ativan) 1 mg IVP TID PRN PRN Reason: Agitation Methimazole (Tapazole) 10 mg PO BID [facility] Last Admin: 04/30/18 17:31 Dose: Not Given Propranolol HCl (Inderal) 20 mg PO TID [facility] Last Admin: 04/30/18 17:30 Dose: Not Given Results - Vital Signs Recent Vital Signs: Last Vital Signs Temp 97.4 F L 04/30/18 16:10 Pulse 73 04/30/18 16:10 Resp 20 04/30/18 16:10 BP 143/79 01/09/19 16:10 Pulse Ox 93 L 04/30/18 16:10 - Labs Result Diagrams: 04/30/18 07:02 04/30/18 07:02 Labs: Laboratory Results - last 24 hr 04/29/18 04/30/18 04/30/18 18:24 05:04 07:02 WBC 9.7 D RBC 4.70 Hgb 10.4 L Hct 33.6 L MCV 71.5 L MCH 22.1 L MCHC 31.0 L RDW 18.3 H Plt Count 221 MPV 8.3 Neut % (Auto) 70.1 Lymph % (Auto) 22.1 [place] % (Auto) 7.2 Eos % (Auto) 0.3 Baso % (Auto) 0.3 Neut # (Auto) 6.8 Lymph # (Auto) 2.1 [place] # (Auto) 0.7 Eos # (Auto) 0.0 Baso # (Auto) 0.0 Sodium Potassium Chloride Carbon Dioxide Anion Gap BUN Creatinine Est GFR ( Amer) Est GFR (Non-Af Amer) POC Glucose (mg/dL) 138 H Random Glucose Calcium Phosphorus Magnesium Total Bilirubin AST ALT Alkaline Phosphatase Total Protein Albumin Globulin Albumin/Globulin Ratio Fluid Appearance Sl cloudy Fluid WBC 540.0 H Fluid RBC 720.0 H Fluid Tot Cell Count TEST NOT PERFORMED Fluid Neutrophils 1.0 H Fluid Lymphocytes 98.0 H Fld Monocyte/Macrophag 1 H Fluid Comment 04/30/18 07:02 WBC RBC Hgb Hct MCV MCH MCHC RDW Plt Count MPV Neut % (Auto) Lymph % (Auto) [place] % (Auto) Eos % (Auto) Baso % (Auto) Neut # (Auto) Lymph # (Auto) [place] # (Auto) Eos # (Auto) Baso # (Auto) Sodium 140 Potassium 3.0 L Chloride 98 Carbon Dioxide 33 H Anion Gap 11 BUN 21 H Creatinine 0.6 L Est GFR ( Amer) > 60 Est GFR (Non-Af Amer) > 60 POC Glucose (mg/dL) Random Glucose 121 H Calcium 8.5 L Phosphorus 4.1 Magnesium 1.7 Total Bilirubin 0.4 AST 27 ALT 37 Alkaline Phosphatase 96 Total Protein 6.1 L Albumin 3.3 L Globulin 2.8 Albumin/Globulin Ratio 1.2 Fluid Appearance Fluid WBC Fluid RBC Fluid Tot Cell Count Fluid Neutrophils Fluid Lymphocytes Fld Monocyte/Macrophag Fluid Comment Attending/Attestation - Attestation I have personally seen and examined this patient.: Yes I have fully participated in the care of the patient.: Yes I have reviewed all pertinent clinical information: Yes Notes (Text): 04/30/18 18:36 Patient seen and examined Status post thoracentesis for right pleural effusion Follow-up fluid analysis Continue treatment for atrial fibrillation and hyperthyroidism No lung biopsy Patient very confused
[2018-04-30] MEDS: Digoxin 500 mcg/2ml (0.5 mg/2ml) Inj IVP SCH (18:58)
[2018-04-30] MEDS: Azithromycin 500 MG in Sodium Chloride 0.9% 250 ML IVPB SCH (18:59)
--- NOTE | 2018-04-30 19:49 | PN ---
DATE: 04/30/2018 ENDOCRINOLOGY FOLLOWUP NOTE LOCATION: In room 551. SUBJECTIVE: This is an 87-year-old female admitted with rapid atrial fibrillation and also diagnosed for supervening hyperthyroidism, started on medical therapy which she is tolerating fairly well at this time. LABORATORY DATA: Her repeat chemistries showed BUN of 21, sodium 140, potassium 3, chloride 98, CO2 of 33, glucose 121, and creatinine 0.6. Her repeat thyroid study showed a T4 of 7.77 and TSH of 0.04 with cortisol level of 60.3 mcg/dL. ASSESSMENT: This is an 87-year-old female with subclinical hyperthyroidism, presenting with rapid atrial fibrillation and is now being followed closely for metabolic management. PLAN OF MANAGEMENT: We will discontinue her IV steroids, given empirically as ordered. We will lower the Tapazole now to 10 mg p.o. b.i.d. as ordered and we will actually recommend for discharge a lower dose or Tapazole given as 10 mg once daily as given. We will obtain serial thyroid studies accordingly. We will continue the propanolol given as 20 mg t.i.d. as ordered. For eventual discharge would recommend a propanolol long-acting at 60 mg once daily as given. We will follow and advise accordingly. Nicole Apodaca MD
[2018-05-01 07:50] LABS: T4 6.42 ug/dL (5.5-11.0)
[2018-05-01 07:53] LABS: BASO % 0.4 % (0.0-2.0); EOS # 0.2 K/uL (0.0-0.7); EOS % 2.9 % (0.0-4.0); HEMOGLOBIN 10.2 g/dL (11.0-16.0); LYMPH # 1.2 K/uL (1.0-4.3); LYMPH % 16.6 % (20.0-40.0); MEAN CELL VOLUME 71.6 fL (81.0-99.0); MEAN CORPUSCULAR HEMOGLOBIN 21.7 pg (27.0-31.0); MEAN CORPUSCULAR HGB CONC 30.3 g/dL (33.0-37.0); MEAN PLATELET VOLUME 8.5 fL (7.2-11.7); MONO # 0.6 K/uL (0.0-0.8); MONO % 8.3 % (0.0-10.0); NEUT # 5.4 K/uL (1.8-7.0); NEUT % 71.8 % (50.0-75.0); NRBC % 0.1 % (0.0-2.0); RBC 4.72 Mil/uL (3.80-5.20); RED CELL DISTRIBUTION WIDTH 18.1 % (11.5-14.5); WHITE BLOOD COUNT 7.5 K/uL (4.8-10.8)
[2018-05-01 08:13] LABS: ALB/GLOB RATIO 1.1 (1.0-2.1); ALBUMIN 2.8 g/dL (3.5-5.0); ALT/SGPT 32 U/L (9-52); AST/SGOT 24 U/L (14-36); BLOOD UREA NITROGEN 14 mg/dL (7-17); CALCIUM 7.9 mg/dl (8.6-10.4); GFR NON-AFRICAN AMERICAN > 60
[2018-05-01] MEDS: Potassium Chl 40 mEq in D5-1/2 1,000 ML IV SCH ×4 (09:20→20:08)
[2018-05-01] MEDS: Enoxaparin 80 mg Syringe SC SCH ×2 (09:23→22:00)
--- NOTE | 2018-05-01 14:51 | CP.PCM.PN ---
<Cachorro Hines - Last Filed: 05/01/18 14:47> Subjective - Date & Time of Evaluation Date of Evaluation: 05/01/18 Time of Evaluation: 14:47 - Subjective Subjective: PGY-1 Medicine Progress Note for Dr. Fatima Patient seen and examined at bedside this AM, resting comfortably. Patient in no acute distress, no overnight events reported. Daughter in law at bedside, Daren, was aware of hospital course. She reiterated wishes expressed by other family members that they do no wish for any invasive intervention at this time--no biopsy of the enlarged thyroid gland, no surgical intervention. Palliative care is on the case, will have discussion with family about plans going forward and CODE status. Per nursing, patient will not tolerate PO meds due to agitation. Family states this has been a problem at home as well. Will get CT head w/o contrast, as AMS may be due to metastatic disease to brain. Objective - Vital Signs/Intake and Output Vital Signs (last 24 hours): Temp Pulse Resp BP Pulse Ox 97.5 F L 80 20 121/70 96 05/01/18 08:05 05/01/18 13:49 05/01/18 08:05 05/01/18 13:49 05/01/18 08:05 Intake and Output: 05/01/18 05/01/18 06:59 18:59 Intake Total 1230 Balance 1230 - Medications Medications: Current Medications Acetaminophen (Tylenol 325mg Tab) 650 mg PO Q6 PRN PRN Reason: fever+pain Digoxin (Lanoxin) 0.25 mg IVP DAILY@1800 [facility] Last Admin: 04/30/18 18:58 Dose: 0.25 mg Enoxaparin Sodium (Lovenox) 80 mg SC Q12 [facility] Last Admin: 05/01/18 09:23 Dose: 80 mg Famotidine (Pepcid) 20 mg IVP Q12 [facility] Last Admin: 05/01/18 09:23 Dose: 20 mg Furosemide (Lasix) 20 mg IVP DAILY [facility] Last Admin: 05/01/18 09:19 Dose: 20 mg Haloperidol Lactate (Haldol) 5 mg IVP ONCE PRN PRN Reason: Agitation Ceftriaxone Sodium 1 gm/ (Sodium Chloride) 100 mls @ 100 mls/hr IVPB Q24H [facility]; Protocol Last Admin: 04/30/18 18:59 Dose: 100 mls/hr Azithromycin 500 mg/ Sodium (Chloride) 250 mls @ 250 mls/hr IVPB DAILY@1800 [facility]; Protocol Last Admin: 04/30/18 18:59 Dose: 250 mls/hr Potassium Chloride/Dextrose/Sod Cl (Potassium Chl 40 Meq In D5-1/2ns) 1,000 mls @ 100 mls/hr IV .Q10H [facility] Last Admin: 05/01/18 09:20 Dose: Not Given Potassium Chloride/Dextrose/Sod Cl (Potassium Chl 40 Meq In D5-1/2ns) 1,000 mls @ 100 mls/hr IV .Q10H [facility] Last Admin: 05/01/18 09:20 Dose: 100 mls/hr Labetalol HCl (Trandate) 25 mg IVP Q6H PRN PRN Reason: Heart rate Last Admin: 04/30/18 12:03 Dose: 25 mg Lorazepam (Ativan) 1 mg IVP TID PRN PRN Reason: Agitation Methimazole (Tapazole) 10 mg PO DAILY [facility] Propranolol HCl (Inderal) 20 mg PO TID [facility] Last Admin: 05/01/18 13:50 Dose: 20 mg - Labs Labs: 05/01/18 07:10 05/01/18 07:10 PT 11.1 SECONDS (9.7-12.2) 04/28/18 10:30 INR 1.0 04/28/18 10:30 APTT 185 SECONDS (21-34) H* D 04/29/18 08:40 - Constitutional Appears: Non-toxic, No Acute Distress, Agitated, Confused - Head Exam Head Exam: ATRAUMATIC, NORMAL INSPECTION, NORMOCEPHALIC - Eye Exam Eye Exam: EOMI, Normal appearance Pupil Exam: NORMAL ACCOMODATION - ENT Exam ENT Exam: Mucous Membranes Moist, Normal Exam - Neck Exam Neck Exam: Full ROM, Normal Inspection, Thyromegaly. absent: Tenderness - Respiratory Exam Respiratory Exam: Clear to Ausculation Bilateral, NORMAL BREATHING PATTERN. absent: Accessory Muscle Use, Rales, Rhonchi, Wheezes, Respiratory Distress, Stridor - Cardiovascular Exam Cardiovascular Exam: REGULAR RHYTHM, +S1, +S2 - GI/Abdominal Exam GI & Abdominal Exam: Soft, Normal Bowel Sounds. absent: Distended, Firm, Guarding, Rigid, Tenderness, Rebound - Extremities Exam Extremities Exam: Normal Capillary Refill, Normal Inspection. absent: Calf Tenderness, Pedal Edema - Neurological Exam Neurological Exam: Alert, Awake - Skin Skin Exam: Dry, Intact, Normal Color, Warm Assessment and Plan - Assessment and Plan (Free Text) Assessment: 87 year old Israeli F with past medical history of HTN and thyroid goiter is admitted for worsening SOB. On admission, pt noted to have ProBNP of 1190 and d dimer was elevated at 936. Pt underwent CT scan with contrast which was negative for PE but positive for pulmonary nodules. After receiving iodinated contrast, there was concern pt went into thyrotoxicosis and thyroid storm due to significantly low TSH of 0.04. Plan: Rapid Atrial fibrillation CHF exacerbation -ECHO: EF of 55%, moderate pulm HTN, no pericardial effusion -Cardiology (Dr. Esposito) recs appreciated -c/w propanolol 20 mg PO TID -lasix 20 IVP daily for CHF exacerbation Thyroid Goiter, hard masses on palpation -TSH 0.04/free T4 1.15 -Thyroid U/S: Markedly enlarged heterogeneous gland with 6 nodules. Recommended f/u: radionuclide scan, FNA should also be considered -Endocrinology recs (Dr. Apodaca) appreciated -continue tapazole 10 mg PO TID after meals; eventually switch to maintenance dose 10 mg PO daily -further recs following serial studies -Methimazole 10 mg PO BID [facility] -Propanolol 20 mg PO TID [facility] -Digoxin 0.25 mg IVP Daily [facility] -Labetalol 25 mg IVP q6h prn -KCl 40 mgEq in D5W Spiculated Masses in Lungs -Concern for potential malignancy/metastasis, per Dr. Villalobos - Palliative care consulted, recs appreciated -CXR: cardiomegaly. numerous coarse calcifications in R neck and b/l axilla. R paratracheal mass. -CT angiogram: no PE. R-sided effusion with/ atelectasis. Spiculated pleural nodularity of L lung apex and R lung apex. - Pulm recs (Dr Villalobos) appreciated -s/p successful thoracentesis with 600 cc strawberry colored fluid removed -repeat CXR: Interval worsening L pleural effusion and potential underlying atelectasis or infiltrate at L base laterally. Improved R pleural effusion with underlying limited infiltrate remaining. Borderline pulmonary vascular congestion. Elevated D-dimer -D-dimer 936 -BNP 1190 -trops negative -patient not in acute sob -CT angio: no PE. R-sided effusion with/ atelectasis. Spiculated pleural nodularity of L lung apex and R lung apex. -Pulm recs (Dr. Villalobos) appreciated Ppx, Diet, Disposition -DVT ppx: lovenox 80 q12 -GI ppx: pepcid 20 BID -Diet: HHD -Palliative care on board Case discussed with Dr. Akua Hines DO, PGY-1 <Frankie Fatima H - Last Filed: 05/01/18 15:24> Objective - Vital Signs/Intake and Output Vital Signs (last 24 hours): Temp Pulse Resp BP Pulse Ox 97.5 F L 80 20 121/70 96 05/01/18 08:05 05/01/18 13:49 05/01/18 08:05 05/01/18 13:49 05/01/18 08:05 Intake and Output: 05/01/18 05/01/18 06:59 18:59 Intake Total 1230 Balance 1230 - Medications Medications: Current Medications Acetaminophen (Tylenol 325mg Tab) 650 mg PO Q6 PRN PRN Reason: fever+pain Digoxin (Lanoxin) 0.25 mg IVP DAILY@1800 [facility] Last Admin: 04/30/18 18:58 Dose: 0.25 mg Enoxaparin Sodium (Lovenox) 80 mg SC Q12 [facility] Last Admin: 05/01/18 09:23 Dose: 80 mg Famotidine (Pepcid) 20 mg IVP Q12 [facility] Last Admin: 05/01/18 09:23 Dose: 20 mg Furosemide (Lasix) 20 mg IVP DAILY [facility] Last Admin: 05/01/18 09:19 Dose: 20 mg Haloperidol Lactate (Haldol) 5 mg IVP ONCE PRN PRN Reason: Agitation Ceftriaxone Sodium 1 gm/ (Sodium Chloride) 100 mls @ 100 mls/hr IVPB Q24H [facility]; Protocol Last Admin: 04/30/18 18:59 Dose: 100 mls/hr Azithromycin 500 mg/ Sodium (Chloride) 250 mls @ 250 mls/hr IVPB DAILY@1800 [facility]; Protocol Last Admin: 04/30/18 18:59 Dose: 250 mls/hr Potassium Chloride/Dextrose/Sod Cl (Potassium Chl 40 Meq In D5-1/2ns) 1,000 mls @ 100 mls/hr IV .Q10H [facility] Last Admin: 05/01/18 09:20 Dose: Not Given Potassium Chloride/Dextrose/Sod Cl (Potassium Chl 40 Meq In D5-1/2ns) 1,000 mls @ 100 mls/hr IV .Q10H [facility] Last Admin: 05/01/18 09:20 Dose: 100 mls/hr Labetalol HCl (Trandate) 25 mg IVP Q6H PRN PRN Reason: Heart rate Last Admin: 04/30/18 12:03 Dose: 25 mg Lorazepam (Ativan) 1 mg IVP TID PRN PRN Reason: Agitation Methimazole (Tapazole) 10 mg PO DAILY [facility] Propranolol HCl (Inderal) 20 mg PO TID [facility] Last Admin: 05/01/18 13:50 Dose: 20 mg - Labs Labs: 05/01/18 07:10 05/01/18 07:10 PT 11.1 SECONDS (9.7-12.2) 04/28/18 10:30 INR 1.0 04/28/18 10:30 APTT 185 SECONDS (21-34) H* D 04/29/18 08:40 Attending/Attestation - Attestation I have personally seen and examined this patient.: Yes I have fully participated in the care of the patient.: Yes I have reviewed all pertinent clinical information, including history, physical exam and plan: Yes Notes (Text): Medical attending: Patient was seen and examined by me. Reviewed the above note by the resident The patient was not agitated when we saw her this morning - we have ordered a head CT hopefully she will be calm enough to have the CT scan of the head to see if there are potential areas of malignancy or There was a different family member at bedside today who identified her self as a daughter in law We have not met this person before so we explained that other family members did not wish patient to go through with further testing such as biopsy of the thyroid or lung masses seen on imaging. This family member re-iterated that she was in agreement with her other family members Pending palliative care evaluation Frankie Fatima
[2018-05-01] MEDS: Azithromycin 500 MG in Sodium Chloride 0.9% 250 ML IVPB SCH (17:22)
[2018-05-01] MEDS: Digoxin 500 mcg/2ml (0.5 mg/2ml) Inj IVP SCH (17:25)
--- NOTE | 2018-05-01 18:04 | CP.PCM.PN ---
Subjective - Date & Time of Evaluation Date of Evaluation: 05/01/18 Time of Evaluation: 10:20 - Subjective Subjective: Patient seen and examined at bedside. Tolerating PO. Appears less agitated and responding to family members' verbal commands. Her family notes drastic improvement in mental status as compared to yesterday. Full history unable to be elicited due to deteriorated mental status. Objective - Vital Signs/Intake and Output Vital Signs (last 24 hours): Temp Pulse Resp BP Pulse Ox 98.5 F 95 H 18 131/77 100 05/01/18 15:00 05/01/18 15:00 05/01/18 15:00 05/01/18 15:00 05/01/18 15:00 Intake and Output: 05/01/18 05/01/18 06:59 18:59 Intake Total 1230 Balance 1230 - Medications Medications: Current Medications Acetaminophen (Tylenol 325mg Tab) 650 mg PO Q6 PRN PRN Reason: fever+pain Digoxin (Lanoxin) 0.25 mg IVP DAILY@1800 [facility] Last Admin: 05/01/18 17:25 Dose: 0.25 mg Enoxaparin Sodium (Lovenox) 80 mg SC Q12 [facility] Last Admin: 05/01/18 09:23 Dose: 80 mg Famotidine (Pepcid) 20 mg IVP Q12 [facility] Last Admin: 05/01/18 09:23 Dose: 20 mg Furosemide (Lasix) 20 mg IVP DAILY [facility] Last Admin: 05/01/18 09:19 Dose: 20 mg Haloperidol Lactate (Haldol) 5 mg IVP ONCE PRN PRN Reason: Agitation Ceftriaxone Sodium 1 gm/ (Sodium Chloride) 100 mls @ 100 mls/hr IVPB Q24H [facility]; Protocol Last Admin: 04/30/18 18:59 Dose: 100 mls/hr Azithromycin 500 mg/ Sodium (Chloride) 250 mls @ 250 mls/hr IVPB DAILY@1800 [facility]; Protocol Last Admin: 05/01/18 17:22 Dose: 250 mls/hr Potassium Chloride/Dextrose/Sod Cl (Potassium Chl 40 Meq In D5-1/2ns) 1,000 mls @ 100 mls/hr IV .Q10H [facility] Last Admin: 05/01/18 09:20 Dose: Not Given Potassium Chloride/Dextrose/Sod Cl (Potassium Chl 40 Meq In D5-1/2ns) 1,000 mls @ 100 mls/hr IV .Q10H [facility] Last Admin: 05/01/18 09:20 Dose: 100 mls/hr Labetalol HCl (Trandate) 25 mg IVP Q6H PRN PRN Reason: Heart rate Last Admin: 04/30/18 12:03 Dose: 25 mg Lorazepam (Ativan) 1 mg IVP TID PRN PRN Reason: Agitation Methimazole (Tapazole) 10 mg PO DAILY [facility] Propranolol HCl (Inderal) 20 mg PO TID [facility] Last Admin: 05/01/18 17:25 Dose: 20 mg - Labs Labs: 05/01/18 07:10 05/01/18 07:10 PT 11.1 SECONDS (9.7-12.2) 04/28/18 10:30 INR 1.0 04/28/18 10:30 APTT 185 SECONDS (21-34) H* D 04/29/18 08:40 - Head Exam Head Exam: ATRAUMATIC, NORMOCEPHALIC - ENT Exam ENT Exam: Mucous Membranes Moist - Neck Exam Neck Exam: Normal Inspection - Respiratory Exam Respiratory Exam: Decreased Breath Sounds - Cardiovascular Exam Cardiovascular Exam: REGULAR RHYTHM Assessment and Plan (1) Pleural effusion Assessment & Plan: status post thoracentesis Fluid analysis Continue present treatment Status: Acute (2) Atrial fibrillation with RVR Status: Acute (3) Thyroid goiter Status: Acute
--- NOTE | 2018-05-01 19:00 | PN ---
DATE: 05/01/2018 ENDOCRINOLOGY PROGRESS NOTE LOCATION: Room 565. SUBJECTIVE: This is an 87-year-old female presented here with rapid atrial fibrillation that has improved clinically and hemodynamically as noted thereof. She also is being managed for recent onset of hyperthyroidism and the latest thyroid studies today showed a T4 of 6.42 with a TSH of 0.14 and a free T4 of 1.08. Repeat chemistries showed a BUN of 14, sodium 137, potassium 3.4, chloride 96, CO2 of 37, glucose of 145 and creatinine 0.7. ASSESSMENT AND PLAN: So at this time, we will modify once again and lower the Tapazole down to 10 mg once daily in the morning as ordered. For now, we will continue the Tapazole given as 10 mg twice daily as ordered. We will obtain serial thyroid studies and titrate the dose regimen accordingly. We will actually be signing out from the endocrine care at this time and would recommend the Tapazole given as once daily even on discharge. We will follow up. Nicole Apodaca MD
[2018-05-02] MEDS: Potassium Chl 40 mEq in D5-1/2 1,000 ML IV SCH ×4 (03:46→20:32)
--- NOTE | 2018-05-02 07:29 | CP.PCM.PN ---
<Cachorro Hines - Last Filed: 05/02/18 16:10> Subjective - Date & Time of Evaluation Date of Evaluation: 05/02/18 Time of Evaluation: 07:28 - Subjective Subjective: PGY-1 Medicine Progress Note for Dr. Fatima Patient seen and examined at bedside this AM. No acute overnight events reported. Patient sleeping comfortably, family present at bedside. Spoke to patient's granddaughter Bhavana on the phone about hospital course and plans going forward. Family is in agreement about not pursuing more invasive intervention at this time. Family meeting set with Palliative on Saturday at 2pm. No acute somatic complaints at this time. Objective - Vital Signs/Intake and Output Vital Signs (last 24 hours): Temp Pulse Resp BP Pulse Ox 98.5 F 89 20 135/70 100 05/02/18 06:43 05/02/18 06:43 05/02/18 06:43 05/02/18 06:43 05/02/18 06:43 Intake and Output: 05/02/18 05/02/18 06:59 18:59 Intake Total 1850 Balance 1850 - Medications Medications: Current Medications Acetaminophen (Tylenol 325mg Tab) 650 mg PO Q6 PRN PRN Reason: fever+pain Digoxin (Lanoxin) 0.25 mg IVP DAILY@1800 [facility] Last Admin: 05/01/18 17:25 Dose: 0.25 mg Enoxaparin Sodium (Lovenox) 80 mg SC Q12 [facility] Last Admin: 05/01/18 22:00 Dose: 80 mg Famotidine (Pepcid) 20 mg IVP Q12 [facility] Last Admin: 05/01/18 22:00 Dose: 20 mg Furosemide (Lasix) 20 mg IVP DAILY [facility] Last Admin: 05/01/18 09:19 Dose: 20 mg Haloperidol Lactate (Haldol) 5 mg IVP ONCE PRN PRN Reason: Agitation Ceftriaxone Sodium 1 gm/ (Sodium Chloride) 100 mls @ 100 mls/hr IVPB Q24H [facility]; Protocol Last Admin: 05/01/18 19:30 Dose: 100 mls/hr Azithromycin 500 mg/ Sodium (Chloride) 250 mls @ 250 mls/hr IVPB DAILY@1800 [facility]; Protocol Last Admin: 05/01/18 17:22 Dose: 250 mls/hr Potassium Chloride/Dextrose/Sod Cl (Potassium Chl 40 Meq In D5-1/2ns) 1,000 mls @ 100 mls/hr IV .Q10H [facility] Last Admin: 05/02/18 03:46 Dose: Not Given Potassium Chloride/Dextrose/Sod Cl (Potassium Chl 40 Meq In D5-1/2ns) 1,000 mls @ 100 mls/hr IV .Q10H [facility] Last Admin: 05/02/18 04:27 Dose: Not Given Labetalol HCl (Trandate) 25 mg IVP Q6H PRN PRN Reason: Heart rate Last Admin: 04/30/18 12:03 Dose: 25 mg Lorazepam (Ativan) 1 mg IVP TID PRN PRN Reason: Agitation Last Admin: 05/01/18 23:46 Dose: 1 mg Methimazole (Tapazole) 10 mg PO DAILY [facility] Propranolol HCl (Inderal) 20 mg PO TID [facility] Last Admin: 05/01/18 17:25 Dose: 20 mg - Labs Labs: 05/01/18 07:10 05/01/18 07:10 PT 11.1 SECONDS (9.7-12.2) 04/28/18 10:30 INR 1.0 04/28/18 10:30 APTT 185 SECONDS (21-34) H* D 04/29/18 08:40 - Constitutional Appears: Non-toxic, No Acute Distress, Confused, Chronically Ill - Head Exam Head Exam: ATRAUMATIC, NORMAL INSPECTION, NORMOCEPHALIC - Eye Exam Eye Exam: EOMI, Normal appearance Pupil Exam: NORMAL ACCOMODATION - ENT Exam ENT Exam: Mucous Membranes Moist, Normal Exam - Neck Exam Neck Exam: Full ROM, Normal Inspection, Thyromegaly. absent: Tenderness - Respiratory Exam Respiratory Exam: Clear to Ausculation Bilateral, NORMAL BREATHING PATTERN. absent: Accessory Muscle Use, Rales, Rhonchi, Wheezes, Respiratory Distress, Stridor - Cardiovascular Exam Cardiovascular Exam: Tachycardia, +S1, +S2 - GI/Abdominal Exam GI & Abdominal Exam: Soft, Normal Bowel Sounds. absent: Distended, Firm, Guarding, Rigid, Tenderness, Rebound - Extremities Exam Extremities Exam: Full ROM, Normal Capillary Refill, Normal Inspection. absent: Calf Tenderness - Back Exam Back Exam: NORMAL INSPECTION - Neurological Exam Neurological Exam: Alert, Awake - Psychiatric Exam Psychiatric exam: Normal Affect, Normal Mood - Skin Skin Exam: Dry, Intact, Normal Color, Warm Assessment and Plan - Assessment and Plan (Free Text) Assessment: 87 year old [place]uran F with past medical history of HTN and thyroid goiter is admitted for worsening SOB. On admission, pt noted to have ProBNP of 1190 and d dimer was elevated at 936. Pt underwent CT scan with contrast which was negative for PE but positive for pulmonary nodules. After receiving iodinated contrast, there was concern pt went into thyrotoxicosis and thyroid storm due to significantly low TSH of 0.04. Plan: Rapid Atrial fibrillation CHF exacerbation -ECHO: EF of 55%, moderate pulm HTN, no pericardial effusion -Cardiology (Dr. Esposito) recs appreciated -c/w propanolol 20 mg PO TID -lasix 20 IVP daily for CHF exacerbation Thyroid Goiter, hard masses on palpation -TSH 0.04/free T4 1.15 -Thyroid U/S: Markedly enlarged heterogeneous gland with 6 nodules. Recommended f/u: radionuclide scan, FNA should also be considered -Endocrinology recs (Dr. Apodaca) appreciated -continue tapazole 10 mg PO TID after meals; eventually switch to maintenance dose 10 mg PO daily -further recs following serial studies -Methimazole 10 mg PO BID [facility] -Propanolol 20 mg PO TID [facility] -Digoxin 0.25 mg IVP Daily [facility] -Labetalol 25 mg IVP q6h prn -KCl 40 mgEq in D5W Spiculated Masses in Lungs -Concern for potential malignancy/metastasis, per Dr. Villalobos - Palliative care consulted, recs appreciated -CXR: cardiomegaly. numerous coarse calcifications in R neck and b/l axilla. R paratracheal mass. -CT angiogram: no PE. R-sided effusion with/ atelectasis. Spiculated pleural nodularity of L lung apex and R lung apex. - Pulm recs (Dr Villalobos) appreciated -s/p successful thoracentesis with 600 cc strawberry colored fluid removed -repeat CXR: Interval worsening L pleural effusion and potential underlying atelectasis or infiltrate at L base laterally. Improved R pleural effusion with underlying limited infiltrate remaining. Borderline pulmonary vascular conges tion. Elevated D-dimer -D-dimer 936 -BNP 1190 -trops negative -patient not in acute sob -CT angio: no PE. R-sided effusion with/ atelectasis. Spiculated pleural nodularity of L lung apex and R lung apex. -Pulm recs (Dr. Villalobos) appreciated Ppx, Diet, Disposition -DVT ppx: lovenox 80 q12 -GI ppx: pepcid 20 BID -Diet: HHD -Palliative care on board -Famil meeting set for 2pm Saturday Case discussed with Dr. Akua Hines DO, PGY-1 <Frankie Fatima H - Last Filed: 05/02/18 16:20> Objective - Vital Signs/Intake and Output Vital Signs (last 24 hours): Temp Pulse Resp BP Pulse Ox 98.0 F 54 L 20 134/86 95 05/02/18 07:00 05/02/18 13:00 05/02/18 07:00 05/02/18 13:00 05/02/18 07:00 Intake and Output: 05/02/18 05/02/18 06:59 18:59 Intake Total 1850 Balance 1850 - Medications Medications: Current Medications Acetaminophen (Tylenol 325mg Tab) 650 mg PO Q6 PRN PRN Reason: fever+pain Digoxin (Lanoxin) 0.25 mg IVP DAILY@1800 [facility] Last Admin: 05/01/18 17:25 Dose: 0.25 mg Enoxaparin Sodium (Lovenox) 80 mg SC Q12 [facility] Last Admin: 05/02/18 11:56 Dose: 80 mg Famotidine (Pepcid) 20 mg IVP Q12 [facility] Last Admin: 05/02/18 11:51 Dose: 20 mg Furosemide (Lasix) 20 mg IVP DAILY [facility] Last Admin: 05/02/18 11:57 Dose: 20 mg Haloperidol Lactate (Haldol) 5 mg IVP ONCE PRN PRN Reason: Agitation Ceftriaxone Sodium 1 gm/ (Sodium Chloride) 100 mls @ 100 mls/hr IVPB Q24H [facility]; Protocol Last Admin: 05/01/18 19:30 Dose: 100 mls/hr Azithromycin 500 mg/ Sodium (Chloride) 250 mls @ 250 mls/hr IVPB DAILY@1800 [facility]; Protocol Last Admin: 05/01/18 17:22 Dose: 250 mls/hr Potassium Chloride/Dextrose/Sod Cl (Potassium Chl 40 Meq In D5-1/2ns) 1,000 mls @ 100 mls/hr IV .Q10H [facility] Last Admin: 05/02/18 03:46 Dose: Not Given Potassium Chloride/Dextrose/Sod Cl (Potassium Chl 40 Meq In D5-1/2ns) 1,000 mls @ 100 mls/hr IV .Q10H [facility] Last Admin: 05/02/18 04:27 Dose: Not Given Labetalol HCl (Trandate) 25 mg IVP Q6H PRN PRN Reason: Heart rate Last Admin: 04/30/18 12:03 Dose: 25 mg Lorazepam (Ativan) 1 mg IVP TID PRN PRN Reason: Agitation Last Admin: 05/01/18 23:46 Dose: 1 mg Methimazole (Tapazole) 10 mg PO DAILY [facility] Last Admin: 05/02/18 12:00 Dose: 10 mg Propranolol HCl (Inderal) 20 mg PO TID [facility] Last Admin: 05/02/18 13:35 Dose: 20 mg - Labs Labs: 05/02/18 08:12 05/02/18 08:12 PT 11.1 SECONDS (9.7-12.2) 04/28/18 10:30 INR 1.0 04/28/18 10:30 APTT 185 SECONDS (21-34) H* D 04/29/18 08:40 Attending/Attestation - Attestation I have personally seen and examined this patient.: Yes I have fully participated in the care of the patient.: Yes I have reviewed all pertinent clinical information, including history, physical exam and plan: Yes Notes (Text): 05/02/18 16:15 Medical attending: Patient was seen and examined by me. Agree with the above note by the resident The patient was sleeping today when we came and saw - however nursing staff report this morning was highly agitated. The patient's family member was at bedside who asked us to talk to a granddaughter who speaks Korean. Her name is Bhavana and we spoke via speaker phone. We explained to the new family members what was happening and we expained that the prognosis was very poor. She had some questions with reguards to the thoracenteis that was ordered, as well as some of the medication for her atrial fibrillation. This morning was taking some meds and refusing other medications. This Saturday there is going to be a discussion with palliative care with family members as to her CODE status Frankie Fatima
--- NOTE | 2018-05-02 07:37 | CT ---
Date of service: 05/01/2018 PROCEDURE: CT HEAD WITHOUT CONTRAST. HISTORY: Altered mental status. COMPARISON: None available. TECHNIQUE: Axial computed tomography images were obtained through the head/brain without intravenous contrast. Radiation dose: Total exam DLP = 1051.42 mGy-cm. This CT exam was performed using one or more of the following dose reduction techniques: Automated exposure control, adjustment of the mA and/or kV according to patient size, and/or use of iterative reconstruction technique. FINDINGS: HEMORRHAGE: No intracranial hemorrhage. BRAIN: No mass effect or edema. Scattered focal lucencies in the subcortical and periventricular white matter suggestive for chronic microvascular ischemic change. Diffuse generalized parenchymal atrophy. VENTRICLES: Prominence of the ventricles and sulci suggestive for atrophy. CALVARIUM: Focal patchy lucency seen within the posterior midline occipital cranium, nonspecific. PARANASAL SINUSES: Unremarkable as visualized. No significant inflammatory changes. MASTOID AIR CELLS: Unremarkable as visualized. No inflammatory changes. OTHER FINDINGS: None. IMPRESSION: No acute intracranial abnormality. Chronic microvascular ischemic changes. Diffuse generalized parenchymal atrophy. If symptoms persists, consider correlation with MRI. A preliminary report was generated at 7:13 p.m. on 05/01/[address] Pedro Mckenzie from [employer].
[2018-05-02 08:20] LABS: BASO # 0.1 K/uL (0.0-0.2); EOS # 0.5 K/uL (0.0-0.7); EOS % 6.1 % (0.0-4.0); HEMOGLOBIN 11.8 g/dL (11.0-16.0); MONO # 0.6 K/uL (0.0-0.8); NEUT # 5.1 K/uL (1.8-7.0); NRBC % 0.1 % (0.0-2.0)
[2018-05-02 08:40] LABS: BLOOD UREA NITROGEN 9 mg/dL (7-17); CALCIUM 8.5 mg/dl (8.6-10.4); GFR NON-AFRICAN AMERICAN > 60
[2018-05-02 08:41] LABS: ALB/GLOB RATIO 1.1 (1.0-2.1); ALBUMIN 3.4 g/dL (3.5-5.0); ALT/SGPT 33 U/L (9-52); AST/SGOT 28 U/L (14-36)
[2018-05-02 08:49] LABS: BASO % 1.1 % (0.0-2.0); LYMPH % 24.1 % (20.0-40.0); MEAN CORPUSCULAR HEMOGLOBIN 21.8 pg (27.0-31.0); MEAN CORPUSCULAR HGB CONC 30.3 g/dL (33.0-37.0); MEAN PLATELET VOLUME 9.1 fL (7.2-11.7); MONO % 7.6 % (0.0-10.0); NEUT % 61.1 % (50.0-75.0); RBC 5.39 Mil/uL (3.80-5.20); RED CELL DISTRIBUTION WIDTH 17.7 % (11.5-14.5); WHITE BLOOD COUNT 8.3 K/uL (4.8-10.8)
[2018-05-02] MEDS: Enoxaparin 80 mg Syringe SC SCH ×2 (11:56→21:25)
--- NOTE | 2018-05-02 13:22 | CP.PCM.CON ---
History of Present Illness - History of Present Illness History of Present Illness: Palliative consult requested by Doctor Justo for goals of care discussion Patient is a 87 yo female who as admitted with SOB X 2 weeks, elevated BP and bladder incontinence X 1 week. In ED patient sustained rapid A Fib, and cardiac consult with Doctor Vaibhav called. Patient made stable and admitted to ICU. CT scan was - PE but significant for lung mass. PET scan as an outpatient was suggested. Patient has long standing Hx of Goiter. TSH 3rd generation 0.04. per family, patient was uncompliant with her meds at home and continues to be that way here at hospital. Patient found to be with BNP 1190, APT 117 on admission. Lasix initiated. Cardizem IV and Heparin IV, Rocephin and Solu Medrol on board. While on ICU Doctor Wilfredo spoke to large family, and at that time they all wanted all measures to be involved to support life. However, patient's condition has not improved and prognosis was seen as poor. Doctor Akua had extended discussion with family regarding diagnosis and prognosis. At that time, no decision regarding goals of care, was made. Family is still awaiting for Bx results. PMH: Hyperthyroidism, Goiter Soc. Hx: Visiting [place] from [place], stays with large family, Amharic speaking only Fam. Hx: Unknown Review of Systems - Review of Systems All systems: reviewed and no additional remarkable complaints except Review of Systems: ROS unobtained from patient due to agitation and inability to use Translation. ROS obtained from nursing. Per nursing, patient is agitated most of the time and is refusing pills. Past Patient History - Past Medical History & Family History Past Medical History?: Yes - Past Social History Smoking Status: Never Smoked - CARDIAC Hx Hypertension: Yes - ENDOCRINE/METABOLIC Other/Comment: goiter - MUSCULOSKELETAL/RHEUMATOLOGICAL Hx Falls: No - PSYCHIATRIC Hx Substance Use: No - SURGICAL HISTORY Hx Surgeries: No - ANESTHESIA Hx Anesthesia: No Has any member of the family had a problem w/ anesthesia?: No Meds Allergies/Adverse Reactions: Allergies Allergy/AdvReac Type Severity Reaction Status Date / Time No Known Allergies Allergy Verified 04/28/18 10:06 - Medications Medications: Current Medications Acetaminophen (Tylenol 325mg Tab) 650 mg PO Q6 PRN PRN Reason: fever+pain Digoxin (Lanoxin) 0.25 mg IVP DAILY@1800 [facility] Last Admin: 05/01/18 17:25 Dose: 0.25 mg Enoxaparin Sodium (Lovenox) 80 mg SC Q12 [facility] Last Admin: 05/02/18 11:56 Dose: 80 mg Famotidine (Pepcid) 20 mg IVP Q12 [facility] Last Admin: 05/02/18 11:51 Dose: 20 mg Furosemide (Lasix) 20 mg IVP DAILY [facility] Last Admin: 05/02/18 11:57 Dose: 20 mg Haloperidol Lactate (Haldol) 5 mg IVP ONCE PRN PRN Reason: Agitation Ceftriaxone Sodium 1 gm/ (Sodium Chloride) 100 mls @ 100 mls/hr IVPB Q24H [facility]; Protocol Last Admin: 05/01/18 19:30 Dose: 100 mls/hr Azithromycin 500 mg/ Sodium (Chloride) 250 mls @ 250 mls/hr IVPB DAILY@1800 [facility]; Protocol Last Admin: 05/01/18 17:22 Dose: 250 mls/hr Potassium Chloride/Dextrose/Sod Cl (Potassium Chl 40 Meq In D5-1/2ns) 1,000 mls @ 100 mls/hr IV .Q10H [facility] Last Admin: 05/02/18 03:46 Dose: Not Given Potassium Chloride/Dextrose/Sod Cl (Potassium Chl 40 Meq In D5-1/2ns) 1,000 mls @ 100 mls/hr IV .Q10H [facility] Last Admin: 05/02/18 04:27 Dose: Not Given Labetalol HCl (Trandate) 25 mg IVP Q6H PRN PRN Reason: Heart rate Last Admin: 04/30/18 12:03 Dose: 25 mg Lorazepam (Ativan) 1 mg IVP TID PRN PRN Reason: Agitation Last Admin: 05/01/18 23:46 Dose: 1 mg Methimazole (Tapazole) 10 mg PO DAILY [facility] Last Admin: 05/02/18 12:00 Dose: 10 mg Propranolol HCl (Inderal) 20 mg PO TID [facility] Last Admin: 05/02/18 12:01 Dose: 20 mg Physical Exam - Constitutional Appears: Agitated - Head Exam Head Exam: ATRAUMATIC, NORMAL INSPECTION, NORMOCEPHALIC - Eye Exam Eye Exam: EOMI, Normal appearance, PERRL Pupil Exam: NORMAL ACCOMODATION, PERRL - ENT Exam ENT Exam: Mucous Membranes Dry - Neck Exam Neck exam: Positive for: Normal Inspection - Respiratory Exam Respiratory Exam: Decreased Breath Sounds, Rales, Rhonchi - Cardiovascular Exam Cardiovascular Exam: Tachycardia - GI/Abdominal Exam GI & Abdominal Exam: Normal Bowel Sounds, Soft - Rectal Exam Rectal Exam: Deferred - Extremities Exam Extremities exam: Positive for: normal inspection - Back Exam Back exam: NORMAL INSPECTION - Neurological Exam Neurological exam: Alert - Psychiatric Exam Psychiatric exam: Agitated, Anxious - Skin Skin Exam: Dry, Intact, Normal Color, Warm Results - Vital Signs Recent Vital Signs: Last Vital Signs Temp 98.0 F 05/02/18 07:00 Pulse 97 H 05/02/18 08:30 Resp 20 05/02/18 07:00 BP 156/124 H 05/02/18 11:57 Pulse Ox 95 05/02/18 07:00 - Labs Result Diagrams: 05/02/18 08:12 05/02/18 08:12 Labs: Laboratory Results - last 24 hr 05/02/18 05/02/18 08:12 08:12 WBC 8.3 RBC 5.39 H Hgb 11.8 Hct 38.8 MCV 72.0 L MCH 21.8 L MCHC 30.3 L RDW 17.7 H Plt Count 216 MPV 9.1 Neut % (Auto) 61.1 Lymph % (Auto) 24.1 [place] % (Auto) 7.6 Eos % (Auto) 6.1 H Baso % (Auto) 1.1 Neut # (Auto) 5.1 Lymph # (Auto) 2.0 [place] # (Auto) 0.6 Eos # (Auto) 0.5 Baso # (Auto) 0.1 Sodium 140 Potassium 3.8 Chloride 98 Carbon Dioxide 36 H Anion Gap 9 L BUN 9 Creatinine 0.6 L Est GFR ( Amer) > 60 Est GFR (Non-Af Amer) > 60 Random Glucose 110 H D Calcium 8.5 L Phosphorus 3.3 Magnesium 1.7 Total Bilirubin 0.6 AST 28 ALT 33 Alkaline Phosphatase 90 Total Protein 6.4 Albumin 3.4 L D Globulin 3.0 Albumin/Globulin Ratio 1.1 Assessment & Plan - Assessment and Plan (Free Text) Assessment: Palliative consult Full Code, there is no Advance Directive on chart, PPS 20% I reviewed all medical Hx and diagnostic studies and examined patient in the bed. Interviewing patient was not possible due to agitation. Patient is alert, agitated , only Amharic speaking and non cooperative with exam. Family member at bed side who is only Amharic speaking as well. I was not able to interview patient , but did examine her. Skin is pale, Hb 11.8. Patient is missing a lot of teeth to upper and lower . Breathing is regular with diminished breath sounds, o2Sat 98 % NC. Abdomen soft. Patient incontinent of bowel and bladder. BP 156/124, HR 83, irregular rhythm. Atenolol, Inderal, Digoxin and Lasix are on board. Patient takes Ativan PRN. I spoke over the phone with patient's granddaughter Bhavana ( [phone]) who is Lao speaking and involved in care. I elicited hers and family's understanding about patient's condition. Bhavana replied that they were are of some urinary tract infection and were awaiting lung Bx results. Bhavana did not leave impression on me that family was aware of severity of situation . I know that Doctor Akua spent a lot of time talking to them about how complex patient's condition was. I suggested to granddaughter that overall impression was that it was most likely a cancer, and the pathology was to confirm the type of cancer for the Tx to be ordered. I discussed family's expectations and how aggressive they would want us to be in treating this patient, including CPR and MV if it should be needed. The granddaughter was under impression that due to patient's advanced age and her habits of refusing medical care in the past, aggressive interventions would not be what patient would want for her self. However, she did not fill competent enough to be making decisions and we agreed to meet with rest of the family on Saturday at 2 pm. Impression * Agitation * Refusal of care * Language barrier * Suspected lung cancer * Family undecided on goals of care * Patient has no decision making capacity * Patient's wishes for end of life care are not known Suggestions * Promote safety * Ativan PRN anxiety * Reinforce compliance with meds * Family meeting on Saturday at 2 pm for Code and goals diacussion Advance care planing 40 min palliative care will continue to fallow with this patient
--- NOTE | 2018-05-02 14:19 | CP.PCM.PCO ---
Physician Communication Note - Physician Communication Note Physician Communication Note: Family meeting Saturday 2 pm
--- NOTE | 2018-05-02 14:45 | CP.PCM.PN ---
Subjective - Date & Time of Evaluation Date of Evaluation: 05/02/18 Time of Evaluation: 09:20 - Subjective Subjective: Dwight was seen and examined at bedside this morning. She is awake and alert but not oriented. She still appears lethargic but not agitated or combative. She does respond to her name. Further detailed history and ROS is limited due to pat ients mental status. VS: T: 98.0 HR 97 BP 150/89 RR 20 SpO2 95% on nasal cannula Exam: Gen: Awake, alert but not oriented and lethargic. Does respond to her name. Cachectic. Cardio: RRRR. No murmurs. Resp: Shallow but symmetric chest excursions. No tachypnea or respiratory distress noted. Decreased breath sounds on auscultation. No wheezing, rales or rhonchi noted. Abd: Soft, non-distended, non-tender. A&P: 1. Pleural Effusion - Status post thoracentesis of left pleural effusion, 600mL of fluid was aspirated. - Analysis: WBCs 540, RBCs 720, Lymphocytes 98% - Continue current therapy 2. Thyroid goiter of unknown etiology - Chest CT (04/28) revealed a large heterogenous thyroid goiter with partial compression of the trachea, as well as multiple, small spiculated nodules, some involving the pleura. Neoplastic etiology not ruled out at this point. - Family does not wish for her to undergo any aggressive interventions at this time. Objective - Vital Signs/Intake and Output Vital Signs (last 24 hours): Temp Pulse Resp BP Pulse Ox 98.0 F 54 L 20 134/86 95 05/02/18 07:00 05/02/18 13:00 05/02/18 07:00 05/02/18 13:00 05/02/18 07:00 Intake and Output: 05/02/18 05/02/18 06:59 18:59 Intake Total 1850 Balance 1850 - Medications Medications: Current Medications Acetaminophen (Tylenol 325mg Tab) 650 mg PO Q6 PRN PRN Reason: fever+pain Digoxin (Lanoxin) 0.25 mg IVP DAILY@1800 [facility] Last Admin: 05/01/18 17:25 Dose: 0.25 mg Enoxaparin Sodium (Lovenox) 80 mg SC Q12 [facility] Last Admin: 05/02/18 11:56 Dose: 80 mg Famotidine (Pepcid) 20 mg IVP Q12 [facility] Last Admin: 05/02/18 11:51 Dose: 20 mg Furosemide (Lasix) 20 mg IVP DAILY [facility] Last Admin: 05/02/18 11:57 Dose: 20 mg Haloperidol Lactate (Haldol) 5 mg IVP ONCE PRN PRN Reason: Agitation Ceftriaxone Sodium 1 gm/ (Sodium Chloride) 100 mls @ 100 mls/hr IVPB Q24H [facility]; Protocol Last Admin: 05/01/18 19:30 Dose: 100 mls/hr Azithromycin 500 mg/ Sodium (Chloride) 250 mls @ 250 mls/hr IVPB DAILY@1800 [facility]; Protocol Last Admin: 05/01/18 17:22 Dose: 250 mls/hr Potassium Chloride/Dextrose/Sod Cl (Potassium Chl 40 Meq In D5-1/2ns) 1,000 mls @ 100 mls/hr IV .Q10H [facility] Last Admin: 05/02/18 03:46 Dose: Not Given Potassium Chloride/Dextrose/Sod Cl (Potassium Chl 40 Meq In D5-1/2ns) 1,000 mls @ 100 mls/hr IV .Q10H [facility] Last Admin: 05/02/18 04:27 Dose: Not Given Labetalol HCl (Trandate) 25 mg IVP Q6H PRN PRN Reason: Heart rate Last Admin: 04/30/18 12:03 Dose: 25 mg Lorazepam (Ativan) 1 mg IVP TID PRN PRN Reason: Agitation Last Admin: 05/01/18 23:46 Dose: 1 mg Methimazole (Tapazole) 10 mg PO DAILY [facility] Last Admin: 05/02/18 12:00 Dose: 10 mg Propranolol HCl (Inderal) 20 mg PO TID [facility] Last Admin: 05/02/18 13:35 Dose: 20 mg - Labs Labs: 05/02/18 08:12 05/02/18 08:12 PT 11.1 SECONDS (9.7-12.2) 04/28/18 10:30 INR 1.0 04/28/18 10:30 APTT 185 SECONDS (21-34) H* D 04/29/18 08:40 Assessment and Plan (1) Pleural effusion Status: Acute (2) Atrial fibrillation with RVR Status: Acute (3) Thyroid goiter Status: Acute
[2018-05-02] MEDS: Azithromycin 500 MG in Sodium Chloride 0.9% 250 ML IVPB SCH (17:00)
[2018-05-02] MEDS: Digoxin 500 mcg/2ml (0.5 mg/2ml) Inj IVP SCH (17:55)
[2018-05-03] MEDS: Potassium Chl 40 mEq in D5-1/2 1,000 ML IV SCH ×5 (01:00→22:15)
[2018-05-03 08:35] LABS: BASO # 0.1 K/uL (0.0-0.2); BASO % 0.7 % (0.0-2.0); EOS % 0.2 % (0.0-4.0); LYMPH # 1.7 K/uL (1.0-4.3); LYMPH % 16.8 % (20.0-40.0); MEAN CELL VOLUME 71.2 fL (81.0-99.0); MEAN CORPUSCULAR HEMOGLOBIN 21.9 pg (27.0-31.0); MEAN CORPUSCULAR HGB CONC 30.8 g/dL (33.0-37.0); MEAN PLATELET VOLUME 7.8 fL (7.2-11.7); MONO # 0.9 K/uL (0.0-0.8); MONO % 8.8 % (0.0-10.0); NEUT # 7.3 K/uL (1.8-7.0); NEUT % 73.5 % (50.0-75.0); RBC 5.47 Mil/uL (3.80-5.20); RED CELL DISTRIBUTION WIDTH 17.6 % (11.5-14.5); WHITE BLOOD COUNT 9.9 K/uL (4.8-10.8)
[2018-05-03 08:56] LABS: ALB/GLOB RATIO 1.2 (1.0-2.1); ALBUMIN 3.7 g/dL (3.5-5.0); ALT/SGPT 28 U/L (9-52); AST/SGOT 28 U/L (14-36); BLOOD UREA NITROGEN 11 mg/dL (7-17); CALCIUM 8.6 mg/dl (8.6-10.4); GFR NON-AFRICAN AMERICAN > 60
--- NOTE | 2018-05-03 09:32 | CP.PCM.PN ---
<Antonio Ochoa - Last Filed: 05/03/18 09:24> Subjective - Date & Time of Evaluation Date of Evaluation: 05/03/18 Time of Evaluation: 09:25 - Subjective Subjective: PGY-[address] Frankie Fatima Patient is seen and examined at bedside. Patient's grand daughter is at bedside and contributes to history, as patient is not oriented. Patient tends to get up from bed and seems agitated. As per grand daughter, patient is observed to have a decline in health since "sedatives" were started. Patient is not eating as much. Patient pushes away when attempting to perform a physical exam. As per nurse, patient seemed to be constipated, but was able to go to the bathroom earlier. No other complaints reported by family or nurse on patient. Family awaiting palliative care meeting on friday 05/05 Objective - Vital Signs/Intake and Output Vital Signs (last 24 hours): Temp Pulse Resp BP Pulse Ox 98.2 F 53 L 18 169/93 H 93 L 05/03/18 08:27 05/03/18 08:27 05/03/18 08:27 05/03/18 08:27 05/03/18 08:27 - Medications Medications: Current Medications Acetaminophen (Tylenol 325mg Tab) 650 mg PO Q6 PRN PRN Reason: fever+pain Digoxin (Lanoxin) 0.25 mg IVP DAILY@1800 [facility] Last Admin: 05/02/18 17:55 Dose: 0.25 mg Famotidine (Pepcid) 20 mg IVP Q12 [facility] Last Admin: 05/02/18 21:25 Dose: 20 mg Furosemide (Lasix) 20 mg IVP DAILY [facility] Last Admin: 05/02/18 11:57 Dose: 20 mg Haloperidol Lactate (Haldol) 5 mg IVP ONCE PRN PRN Reason: Agitation Ceftriaxone Sodium 1 gm/ (Sodium Chloride) 100 mls @ 100 mls/hr IVPB Q24H [facility]; Protocol Last Admin: 05/02/18 19:20 Dose: 100 mls/hr Azithromycin 500 mg/ Sodium (Chloride) 250 mls @ 250 mls/hr IVPB DAILY@1800 [facility]; Protocol Last Admin: 05/02/18 17:00 Dose: 250 mls/hr Potassium Chloride/Dextrose/Sod Cl (Potassium Chl 40 Meq In D5-1/2ns) 1,000 mls @ 100 mls/hr IV .Q10H [facility] Last Admin: 05/03/18 00:00 Dose: Not Given Potassium Chloride/Dextrose/Sod Cl (Potassium Chl 40 Meq In D5-1/2ns) 1,000 mls @ 100 mls/hr IV .Q10H [facility] Last Admin: 05/03/18 01:00 Dose: Not Given Labetalol HCl (Trandate) 25 mg IVP Q6H PRN PRN Reason: Heart rate Last Admin: 04/30/18 12:03 Dose: 25 mg Lorazepam (Ativan) 1 mg IVP TID PRN PRN Reason: Agitation Last Admin: 05/03/18 05:55 Dose: 1 mg Methimazole (Tapazole) 10 mg PO DAILY [facility] Last Admin: 05/02/18 12:00 Dose: 10 mg Propranolol HCl (Inderal) 20 mg PO TID [facility] Last Admin: 05/02/18 17:55 Dose: 20 mg - Labs Labs: 05/03/18 08:20 05/03/18 08:20 PT 11.1 SECONDS (9.7-12.2) 04/28/18 10:30 INR 1.0 04/28/18 10:30 APTT 185 SECONDS (21-34) H* D 04/29/18 08:40 - Constitutional Appears: Non-toxic, No Acute Distress, Confused, Chronically Ill - Head Exam Head Exam: ATRAUMATIC, NORMOCEPHALIC - Eye Exam Eye Exam: EOMI - ENT Exam ENT Exam: Mucous Membranes Moist - Neck Exam Neck Exam: Full ROM, Thyromegaly Additional comments: Goiter - Respiratory Exam Respiratory Exam: Clear to Ausculation Bilateral, NORMAL BREATHING PATTERN - Cardiovascular Exam Additional comments: unable to perform due to patient pushing and moving - GI/Abdominal Exam GI & Abdominal Exam: Normal Bowel Sounds - Extremities Exam Extremities Exam: Full ROM - Back Exam Back Exam: NORMAL INSPECTION - Neurological Exam Neurological Exam: Alert, Awake. absent: Oriented x3 - Psychiatric Exam Psychiatric exam: Agitated - Skin Skin Exam: Dry, Intact, Normal Color, Warm Assessment and Plan - Assessment and Plan (Free Text) Plan: Rapid Atrial fibrillation CHF exacerbation -ECHO: EF of 55%, moderate pulm HTN, no pericardial effusion -Cardiology (Dr. Esposito) recs appreciated -c/w propanolol 20 mg PO TID -lasix 20 IVP daily for CHF exacerbation Thyroid Goiter, hard masses on palpation -TSH 0.04/free T4 1.15 -Thyroid U/S: Markedly enlarged heterogeneous gland with 6 nodules. Recommended f/u: radionuclide scan, FNA should also be considered -Endocrinology recs (Dr. Apodaca) appreciated -continue tapazole 10 mg PO TID after meals; eventually switch to maintenance dose 10 mg PO daily -further recs following serial studies -Methimazole 10 mg PO BID [facility] -Propanolol 20 mg PO TID [facility] -Digoxin 0.25 mg IVP Daily [facility] -Labetalol 25 mg IVP q6h prn -KCl 40 mgEq in D5W Spiculated Masses in Lungs -Concern for potential malignancy/metastasis, per Dr. Villalobos - Palliative care consulted, recs appreciated -CXR: cardiomegaly. numerous coarse calcifications in R neck and b/l axilla. R paratracheal mass. -CT angiogram: no PE. R-sided effusion with/ atelectasis. Spiculated pleural nodularity of L lung apex and R lung apex. - Pulm recs (Dr Villalobos) appreciated -s/p successful thoracentesis with 600 cc strawberry colored fluid removed -repeat CXR: Interval worsening L pleural effusion and potential underlying atelectasis or infiltrate at L base laterally. Improved R pleural effusion with underlying limited infiltrate remaining. Borderline pulmonary vascular congestion. Agitation - Ativan 1mg IVP TID PRN for agitation - cont monitor patient Elevated D-dimer -D-dimer 936 -BNP 1190 -trops negative -patient not in acute sob -CT angio: no PE. R-sided effusion with/ atelectasis. Spiculated pleural nodularity of L lung apex and R lung apex. -Pulm recs (Dr. Villalobos) appreciated Ppx, Diet, Disposition -DVT ppx: lovenox 80 q12 -GI ppx: pepcid 20 BID -Diet: HHD -Palliative care on board -Famil meeting set for 2pm Saturday <Frankie Fatima H - Last Filed: 05/03/18 11:04> Objective - Vital Signs/Intake and Output Vital Signs (last 24 hours): Temp Pulse Resp BP Pulse Ox 98.2 F 92 H 18 156/92 H 95 05/03/18 08:27 05/03/18 09:45 05/03/18 09:00 05/03/18 09:46 05/03/18 09:00 - Medications Medications: Current Medications Acetaminophen (Tylenol 325mg Tab) 650 mg PO Q6 PRN PRN Reason: fever+pain Digoxin (Lanoxin) 0.25 mg IVP DAILY@1800 [facility] Last Admin: 05/02/18 17:55 Dose: 0.25 mg Famotidine (Pepcid) 20 mg IVP Q12 [facility] Last Admin: 05/03/18 09:46 Dose: 20 mg Furosemide (Lasix) 20 mg IVP DAILY [facility] Last Admin: 05/03/18 09:46 Dose: 20 mg Haloperidol Lactate (Haldol) 5 mg IVP ONCE PRN PRN Reason: Agitation Ceftriaxone Sodium 1 gm/ (Sodium Chloride) 100 mls @ 100 mls/hr IVPB Q24H [facility]; Protocol Last Admin: 05/02/18 19:20 Dose: 100 mls/hr Azithromycin 500 mg/ Sodium (Chloride) 250 mls @ 250 mls/hr IVPB DAILY@1800 [facility]; Protocol Last Admin: 05/02/18 17:00 Dose: 250 mls/hr Potassium Chloride/Dextrose/Sod Cl (Potassium Chl 40 Meq In D5-1/2ns) 1,000 mls @ 100 mls/hr IV .Q10H [facility] Last Admin: 05/03/18 00:00 Dose: Not Given Potassium Chloride/Dextrose/Sod Cl (Potassium Chl 40 Meq In D5-1/2ns) 1,000 mls @ 100 mls/hr IV .Q10H [facility] Last Admin: 05/03/18 01:00 Dose: Not Given Labetalol HCl (Trandate) 25 mg IVP Q6H PRN PRN Reason: Heart rate Last Admin: 04/30/18 12:03 Dose: 25 mg Lorazepam (Ativan) 1 mg IVP TID PRN PRN Reason: Agitation Last Admin: 05/03/18 05:55 Dose: 1 mg Methimazole (Tapazole) 10 mg PO DAILY [facility] Last Admin: 05/03/18 09:47 Dose: 10 mg Propranolol HCl (Inderal) 20 mg PO TID [facility] Last Admin: 05/03/18 09:47 Dose: 20 mg - Labs Labs: 05/03/18 08:20 05/03/18 08:20 PT 11.1 SECONDS (9.7-12.2) 04/28/18 10:30 INR 1.0 04/28/18 10:30 APTT 185 SECONDS (21-34) H* D 04/29/18 08:40 Attending/Attestation - Attestation I have personally seen and examined this patient.: Yes I have fully participated in the care of the patient.: Yes I have reviewed all pertinent clinical information, including history, physical exam and plan: Yes Notes (Text): 05/03/18 11:03 Medical attending: Patient was seen and examined by me. Reviewed the above note by the resident and agree with the above note The patient was not in any acute distress when I came and saw - she was sleeping after ativan was given Per RN the patient was very agitated earlier in the morning There is a family meeting pending this Saturday Frankie Fatima
[2018-05-03 09:33] LABS: GLUCOSE PLEURAL FLUID 193 mg/dL; LDH PLEURAL FLUID 144 U/L; TOTAL PROTEIN PLEURAL FLUID <3.0 g/dL
--- NOTE | 2018-05-03 16:24 | CP.PCM.PN ---
<Beny Villalobos S - Last Filed: 05/03/18 16:23> Subjective - Date & Time of Evaluation Date of Evaluation: 05/03/18 Time of Evaluation: 14:20 - Subjective Subjective: Patient seen and examined Patient Lethargic and received sedation No shortness of breath Afebrile Objective - Vital Signs/Intake and Output Vital Signs (last 24 hours): Temp Pulse Resp BP Pulse Ox 98.6 F 92 H 18 153/98 H 95 05/03/18 15:00 05/03/18 15:00 05/03/18 15:00 05/03/18 14:30 05/03/18 15:00 Intake and Output: 05/03/18 05/03/18 06:59 18:59 Intake Total 800 Balance 800 - Medications Medications: Current Medications Acetaminophen (Tylenol 325mg Tab) 650 mg PO Q6 PRN PRN Reason: fever+pain Digoxin (Lanoxin) 0.25 mg IVP DAILY@1800 [facility] Last Admin: 05/02/18 17:55 Dose: 0.25 mg Famotidine (Pepcid) 20 mg IVP Q12 [facility] Last Admin: 05/03/18 09:46 Dose: 20 mg Furosemide (Lasix) 20 mg IVP DAILY [facility] Last Admin: 05/03/18 09:46 Dose: 20 mg Haloperidol Lactate (Haldol) 5 mg IVP ONCE PRN PRN Reason: Agitation Ceftriaxone Sodium 1 gm/ (Sodium Chloride) 100 mls @ 100 mls/hr IVPB Q24H [facility]; Protocol Last Admin: 05/02/18 19:20 Dose: 100 mls/hr Azithromycin 500 mg/ Sodium (Chloride) 250 mls @ 250 mls/hr IVPB DAILY@1800 [facility]; Protocol Last Admin: 05/02/18 17:00 Dose: 250 mls/hr Potassium Chloride/Dextrose/Sod Cl (Potassium Chl 40 Meq In D5-1/2ns) 1,000 mls @ 100 mls/hr IV .Q10H [facility] Last Admin: 05/03/18 00:00 Dose: Not Given Potassium Chloride/Dextrose/Sod Cl (Potassium Chl 40 Meq In D5-1/2ns) 1,000 mls @ 100 mls/hr IV .Q10H [facility] Last Admin: 05/03/18 13:56 Dose: 100 mls/hr Labetalol HCl (Trandate) 25 mg IVP Q6H PRN PRN Reason: Heart rate Last Admin: 04/30/18 12:03 Dose: 25 mg Lorazepam (Ativan) 1 mg IVP TID PRN PRN Reason: Agitation Last Admin: 05/03/18 05:55 Dose: 1 mg Methimazole (Tapazole) 10 mg PO DAILY [facility] Last Admin: 05/03/18 12:57 Dose: Not Given Propranolol HCl (Inderal) 20 mg PO TID [facility] Last Admin: 05/03/18 14:57 Dose: Not Given - Labs Labs: 05/03/18 08:20 05/03/18 08:20 PT 11.1 SECONDS (9.7-12.2) 04/28/18 10:30 INR 1.0 04/28/18 10:30 APTT 185 SECONDS (21-34) H* D 04/29/18 08:40 - Head Exam Head Exam: ATRAUMATIC, NORMOCEPHALIC - ENT Exam ENT Exam: Mucous Membranes Moist - Neck Exam Neck Exam: Normal Inspection - Respiratory Exam Respiratory Exam: Decreased Breath Sounds - Cardiovascular Exam Cardiovascular Exam: REGULAR RHYTHM - GI/Abdominal Exam GI & Abdominal Exam: Soft, Normal Bowel Sounds Assessment and Plan (1) Pleural effusion Assessment & Plan: status post thoracentesis and pleural fluid consistent with transudate Continue antibiotics Followup chest x-ray Status: Acute (2) Atrial fibrillation with RVR Status: Acute (3) Thyroid goiter Status: Acute <Frankie Fatima H - Last Filed: 05/04/18 10:17> Objective - Vital Signs/Intake and Output Vital Signs (last 24 hours): Temp Pulse Resp BP Pulse Ox 98.6 F 98 H 18 150/83 95 05/04/18 08:56 05/04/18 08:56 05/04/18 08:56 05/04/18 08:56 05/04/18 08:56 - Medications Medications: Current Medications Acetaminophen (Tylenol 325mg Tab) 650 mg PO Q6 PRN PRN Reason: fever+pain Digoxin (Lanoxin) 0.25 mg IVP DAILY@1800 [facility] Last Admin: 05/03/18 17:36 Dose: 0.25 mg Famotidine (Pepcid) 20 mg IVP Q12 [facility] Last Admin: 05/03/18 22:05 Dose: 20 mg Furosemide (Lasix) 20 mg IVP DAILY [facility] Last Admin: 05/03/18 09:46 Dose: 20 mg Haloperidol Lactate (Haldol) 5 mg IVP ONCE PRN PRN Reason: Agitation Azithromycin 500 mg/ Sodium (Chloride) 250 mls @ 250 mls/hr IVPB DAILY@1800 [facility]; Protocol Last Admin: 05/03/18 19:02 Dose: 250 mls/hr Potassium Chloride/Dextrose/Sod Cl (Potassium Chl 40 Meq In D5-1/2ns) 1,000 mls @ 100 mls/hr IV .Q10H [facility] Last Admin: 05/04/18 06:40 Dose: 100 mls/hr Potassium Chloride/Dextrose/Sod Cl (Potassium Chl 40 Meq In D5-1/2ns) 1,000 mls @ 100 mls/hr IV .Q10H [facility] Last Admin: 05/04/18 06:41 Dose: Not Given Labetalol HCl (Trandate) 25 mg IVP Q6H PRN PRN Reason: Heart rate Last Admin: 04/30/18 12:03 Dose: 25 mg Lorazepam (Ativan) 1 mg IVP TID PRN PRN Reason: Agitation Last Admin: 05/04/18 00:45 Dose: 1 mg Methimazole (Tapazole) 10 mg PO DAILY [facility] Last Admin: 05/03/18 12:57 Dose: Not Given Propranolol HCl (Inderal) 20 mg PO TID [facility] Last Admin: 05/03/18 17:41 Dose: Not Given - Labs Labs: 05/04/18 08:19 05/04/18 08:19 PT 11.1 SECONDS (9.7-12.2) 04/28/18 10:30 INR 1.0 04/28/18 10:30 APTT 185 SECONDS (21-34) H* D 04/29/18 08:40 Attending/Attestation - Attestation I have personally seen and examined this patient.: Yes I have fully participated in the care of the patient.: Yes I have reviewed all pertinent clinical information, including history, physical exam and plan: Yes
[2018-05-03] MEDS: Digoxin 500 mcg/2ml (0.5 mg/2ml) Inj IVP SCH (17:36)
[2018-05-03] MEDS: Azithromycin 500 MG in Sodium Chloride 0.9% 250 ML IVPB SCH (19:02)
[2018-05-04] MEDS: Potassium Chl 40 mEq in D5-1/2 1,000 ML IV SCH ×4 (06:40→17:41)
[2018-05-04] MEDS ORDERED: Enalaprilat 2.5 MG/2 ML IV ONE (07:39)
--- NOTE | 2018-05-04 08:22 | CP.PCM.PN ---
<Antonio Ochoa - Last Filed: 05/04/18 08:18> Subjective - Date & Time of Evaluation Date of Evaluation: 05/04/18 Time of Evaluation: 07:00 - Subjective Subjective: PGY-[address] Fatima Patient is seen and examined at bedside. Patient continues to be agitated and moving around. Patient is awake, but not oriented and not cooperative with physical examination and pushes stethoscope when attempting to auscultate. As per granddaughter, patient is not eating well and has been sleeping yesterday all day. As per nurse, patient's blood pressure has been elevated last night, as patient rejects PO HTN medication. ROS unattainable due to patient's status. Objective - Vital Signs/Intake and Output Vital Signs (last 24 hours): Temp Pulse Resp BP Pulse Ox 98 F 108 H 20 168/91 H 95 05/04/18 00:00 05/04/18 07:30 05/04/18 00:00 05/04/18 07:53 05/03/18 15:00 - Medications Medications: Current Medications Acetaminophen (Tylenol 325mg Tab) 650 mg PO Q6 PRN PRN Reason: fever+pain Digoxin (Lanoxin) 0.25 mg IVP DAILY@1800 [facility] Last Admin: 05/03/18 17:36 Dose: 0.25 mg Famotidine (Pepcid) 20 mg IVP Q12 [facility] Last Admin: 05/03/18 22:05 Dose: 20 mg Furosemide (Lasix) 20 mg IVP DAILY [facility] Last Admin: 05/03/18 09:46 Dose: 20 mg Haloperidol Lactate (Haldol) 5 mg IVP ONCE PRN PRN Reason: Agitation Azithromycin 500 mg/ Sodium (Chloride) 250 mls @ 250 mls/hr IVPB DAILY@1800 [facility]; Protocol Last Admin: 05/03/18 19:02 Dose: 250 mls/hr Potassium Chloride/Dextrose/Sod Cl (Potassium Chl 40 Meq In D5-1/2ns) 1,000 mls @ 100 mls/hr IV .Q10H [facility] Last Admin: 05/04/18 06:40 Dose: 100 mls/hr Potassium Chloride/Dextrose/Sod Cl (Potassium Chl 40 Meq In D5-1/2ns) 1,000 mls @ 100 mls/hr IV .Q10H [facility] Last Admin: 05/04/18 06:41 Dose: Not Given Labetalol HCl (Trandate) 25 mg IVP Q6H PRN PRN Reason: Heart rate Last Admin: 04/30/18 12:03 Dose: 25 mg Lorazepam (Ativan) 1 mg IVP TID PRN PRN Reason: Agitation Last Admin: 05/04/18 00:45 Dose: 1 mg Methimazole (Tapazole) 10 mg PO DAILY [facility] Last Admin: 05/03/18 12:57 Dose: Not Given Propranolol HCl (Inderal) 20 mg PO TID [facility] Last Admin: 05/03/18 17:41 Dose: Not Given - Labs Labs: 05/03/18 08:20 05/03/18 08:20 PT 11.1 SECONDS (9.7-12.2) 04/28/18 10:30 INR 1.0 04/28/18 10:30 APTT 185 SECONDS (21-34) H* D 04/29/18 08:40 - Constitutional Appears: Non-toxic, No Acute Distress, Confused, Chronically Ill - Head Exam Head Exam: ATRAUMATIC, NORMOCEPHALIC - Eye Exam Eye Exam: EOMI - ENT Exam ENT Exam: Mucous Membranes Moist - Neck Exam Neck Exam: Full ROM, Thyromegaly Additional comments: goiter - Respiratory Exam Respiratory Exam: Clear to Ausculation Bilateral, NORMAL BREATHING PATTERN - Cardiovascular Exam Cardiovascular Exam: Tachycardia, +S1, +S2 - GI/Abdominal Exam Additional comments: unable to perform due to patient's restlessness and not cooperating - Extremities Exam Extremities Exam: Full ROM, Normal Inspection - Back Exam Back Exam: NORMAL INSPECTION - Neurological Exam Neurological Exam: Altered, Awake. absent: Alert, Oriented x3 - Psychiatric Exam Psychiatric exam: Agitated - Skin Skin Exam: Dry, Intact, Normal Color, Warm Assessment and Plan - Assessment and Plan (Free Text) Plan: Rapid Atrial fibrillation CHF exacerbation -ECHO: EF of 55%, moderate pulm HTN, no pericardial effusion -Cardiology (Dr. Esposito) recs appreciated -c/w propanolol 20 mg PO TID -lasix 20 IVP daily for CHF exacerbation Thyroid Goiter, hard masses on palpation -TSH 0.04/free T4 1.15 -Thyroid U/S: Markedly enlarged heterogeneous gland with 6 nodules. Recommended f/u: radionuclide scan, FNA should also be considered -Endocrinology recs (Dr. Apodaca) appreciated -continue tapazole 10 mg PO TID after meals; eventually switch to maintenance dose 10 mg PO daily -further recs following serial studies -Methimazole 10 mg PO BID [facility] -Propanolol 20 mg PO TID [facility] -Digoxin 0.25 mg IVP Daily [facility] -Labetalol 25 mg IVP q6h prn -KCl 40 mgEq in D5W Spiculated Masses in Lungs -Concern for potential malignancy/metastasis, per Dr. Villalobos - Palliative care consulted, recs appreciated -CXR: cardiomegaly. numerous coarse calcifications in R neck and b/l axilla. R paratracheal mass. -CT angiogram: no PE. R-sided effusion with/ atelectasis. Spiculated pleural nodularity of L lung apex and R lung apex. - Pulm recs (Dr Villalobos) appreciated -s/p successful thoracentesis with 600 cc strawberry colored fluid removed -repeat CXR: Interval worsening L pleural effusion and potential underlying atelectasis or infiltrate at L base laterally. Improved R pleural effusion with underlying limited infiltrate remaining. Borderline pulmonary vascular congestion. Elevated BP - propranolol 20mg PO TID - patient not complaint with PO meds - Vasotec 2.5 mg IVP x 1 dose - continue monitoring Agitation - Ativan 1mg IVP TID PRN for agitation - cont monitor patient Elevated D-dimer -D-dimer 936 -BNP 1190 -trops negative -patient not in acute sob -CT angio: no PE. R-sided effusion with/ atelectasis. Spiculated pleural nodularity of L lung apex and R lung apex. -Pulm recs (Dr. Villalobos) appreciated Ppx, Diet, Disposition -DVT ppx: lovenox 80 q12 -GI ppx: pepcid 20 BID -Diet: HHD -Palliative care on board -Family meeting set for 2pm Saturday <Frankie Fatima H - Last Filed: 05/04/18 10:28> Objective - Vital Signs/Intake and Output Vital Signs (last 24 hours): Temp Pulse Resp BP Pulse Ox 98.6 F 98 H 18 150/83 95 05/04/18 08:56 05/04/18 08:56 05/04/18 08:56 05/04/18 08:56 05/04/18 08:56 - Medications Medications: Current Medications Acetaminophen (Tylenol 325mg Tab) 650 mg PO Q6 PRN PRN Reason: fever+pain Digoxin (Lanoxin) 0.25 mg IVP DAILY@1800 [facility] Last Admin: 05/03/18 17:36 Dose: 0.25 mg Famotidine (Pepcid) 20 mg IVP Q12 [facility] Last Admin: 05/03/18 22:05 Dose: 20 mg Furosemide (Lasix) 20 mg IVP DAILY [facility] Last Admin: 05/03/18 09:46 Dose: 20 mg Haloperidol Lactate (Haldol) 5 mg IVP ONCE PRN PRN Reason: Agitation Azithromycin 500 mg/ Sodium (Chloride) 250 mls @ 250 mls/hr IVPB DAILY@1800 [facility]; Protocol Last Admin: 05/03/18 19:02 Dose: 250 mls/hr Potassium Chloride/Dextrose/Sod Cl (Potassium Chl 40 Meq In D5-1/2ns) 1,000 mls @ 100 mls/hr IV .Q10H [facility] Last Admin: 05/04/18 06:40 Dose: 100 mls/hr Potassium Chloride/Dextrose/Sod Cl (Potassium Chl 40 Meq In D5-1/2ns) 1,000 mls @ 100 mls/hr IV .Q10H [facility] Last Admin: 05/04/18 06:41 Dose: Not Given Labetalol HCl (Trandate) 25 mg IVP Q6H PRN PRN Reason: Heart rate Last Admin: 04/30/18 12:03 Dose: 25 mg Lorazepam (Ativan) 1 mg IVP TID PRN PRN Reason: Agitation Last Admin: 05/04/18 00:45 Dose: 1 mg Methimazole (Tapazole) 10 mg PO DAILY [facility] Last Admin: 05/03/18 12:57 Dose: Not Given Propranolol HCl (Inderal) 20 mg PO TID [facility] Last Admin: 05/03/18 17:41 Dose: Not Given - Labs Labs: 05/04/18 08:19 05/04/18 08:19 PT 11.1 SECONDS (9.7-12.2) 04/28/18 10:30 INR 1.0 04/28/18 10:30 APTT 185 SECONDS (21-34) H* D 04/29/18 08:40 Attending/Attestation - Attestation I have personally seen and examined this patient.: Yes I have fully participated in the care of the patient.: Yes I have reviewed all pertinent clinical information, including history, physical exam and plan: Yes Notes (Text): 05/04/18 10:27 Medical attending: Patient was seen and examined by me. Agree with the above note by the resident The patient was sleeping today when we came and saw - however nursing staff report this morning was highly agitated without getting IV ativan There is a pending family meeting tomorrow with palliative care Previously the patient's family member was at bedside who asked us to talk to a granddaughter who speaks [place]. Again was with a granddaughter her name is Bhavana and we spoke via speaker phone. As previously explained to the new family members what was happening and we expained that the prognosis was very poor. She had some questions with reguards to the thoracenteis that was ordered, as well as some of the medication for her atrial fibrillation. Tommorow on Saturday there is going to be a discussion with palliative care with family members as to her CODE status Hold tomorrow Ativan so the family can interact with patient Frankie Fatima
[2018-05-04 08:46] LABS: ALB/GLOB RATIO 1.2 (1.0-2.1); ALBUMIN 3.5 g/dL (3.5-5.0); CALCIUM 8.5 mg/dl (8.6-10.4)
[2018-05-04 09:03] LABS: BASO # 0.1 K/uL (0.0-0.2); BASO % 1.1 % (0.0-2.0); EOS % 0.1 % (0.0-4.0); LYMPH # 1.5 K/uL (1.0-4.3); LYMPH % 11.6 % (20.0-40.0); MEAN CELL VOLUME 71.3 fL (81.0-99.0); MEAN CORPUSCULAR HEMOGLOBIN 21.9 pg (27.0-31.0); MEAN CORPUSCULAR HGB CONC 30.7 g/dL (33.0-37.0); MONO # 1.1 K/uL (0.0-0.8); MONO % 8.6 % (0.0-10.0); NEUT # 10.2 K/uL (1.8-7.0); NEUT % 78.6 % (50.0-75.0); RBC 5.48 Mil/uL (3.80-5.20); RED CELL DISTRIBUTION WIDTH 18.1 % (11.5-14.5)
[2018-05-04 16:00] VITALS: RESP 20
[2018-05-04] MEDS: Azithromycin 500 MG in Sodium Chloride 0.9% 250 ML IVPB SCH (17:43)
[2018-05-04] MEDS: Digoxin 500 mcg/2ml (0.5 mg/2ml) Inj IVP SCH (17:44)
--- NOTE | 2018-05-04 21:25 | CP.PCM.PN ---
Subjective - Date & Time of Evaluation Date of Evaluation: 05/04/18 Time of Evaluation: 21:24 - Subjective Subjective: Pulmonary Folow up, Covering Dr Villalobos The Patient was seen and examined at the bedside, Medical records reviewed, and management issues were discussed and formulated with the house staff. Events reviewed Patient is comfortable, not any distress Adequate saturating of 96% on room air. Breathing improved Afebrile No fever/chills Objective - Vital Signs/Intake and Output Vital Signs (last 24 hours): Temp Pulse Resp BP Pulse Ox 97.9 F 94 H 20 149/77 96 05/04/18 15:00 05/04/18 20:20 05/04/18 15:00 05/04/18 16:30 05/04/18 15:00 Intake and Output: 05/04/18 05/05/18 18:59 06:59 Intake Total 800 Balance 800 - Medications Medications: Current Medications Acetaminophen (Tylenol 325mg Tab) 650 mg PO Q6 PRN PRN Reason: fever+pain Digoxin (Lanoxin) 0.25 mg IVP DAILY@1800 [facility] Last Admin: 05/04/18 17:44 Dose: 0.25 mg Famotidine (Pepcid) 20 mg IVP Q12 [facility] Last Admin: 05/04/18 10:49 Dose: 20 mg Furosemide (Lasix) 20 mg IVP DAILY [facility] Last Admin: 05/04/18 10:49 Dose: 20 mg Haloperidol Lactate (Haldol) 5 mg IVP ONCE PRN PRN Reason: Agitation Potassium Chloride/Dextrose/Sod Cl (Potassium Chl 40 Meq In D5-1/2ns) 1,000 mls @ 100 mls/hr IV .Q10H [facility] Last Admin: 05/04/18 17:41 Dose: Not Given Labetalol HCl (Trandate) 25 mg IVP Q6H PRN PRN Reason: Heart rate Last Admin: 04/30/18 12:03 Dose: 25 mg Lorazepam (Ativan) 1 mg IVP TID PRN PRN Reason: Agitation Last Admin: 05/04/18 00:45 Dose: 1 mg Methimazole (Tapazole) 10 mg PO DAILY [facility] Last Admin: 05/04/18 10:52 Dose: Not Given Propranolol HCl (Inderal) 20 mg PO TID [facility] Last Admin: 05/04/18 17:56 Dose: 20 mg - Labs Labs: 05/04/18 08:19 05/04/18 08:19 PT 11.1 SECONDS (9.7-12.2) 04/28/18 10:30 INR 1.0 04/28/18 10:30 APTT 185 SECONDS (21-34) H* D 04/29/18 08:40 - Constitutional Appears: Well, Non-toxic - Head Exam Head Exam: ATRAUMATIC, NORMAL INSPECTION, NORMOCEPHALIC - Eye Exam Eye Exam: EOMI, Normal appearance, PERRL - ENT Exam ENT Exam: Mucous Membranes Moist, Normal Exam - Neck Exam Neck Exam: Full ROM, Thyromegaly (goiter ). absent: Lymphadenopathy, Normal Inspection, Tenderness - Respiratory Exam Respiratory Exam: Clear to Ausculation Bilateral, NORMAL BREATHING PATTERN - Cardiovascular Exam Cardiovascular Exam: REGULAR RHYTHM, +S1, +S2. absent: Murmur Assessment and Plan (1) Pleural effusion Assessment & Plan: status post thoracentesis and pleural fluid consistent with transudate Continue antibiotics Followup chest x-ray Status: Acute (2) Dyspnea Status: Acute (3) Multiple lung nodules on CT Status: Acute (4) Thyroid goiter Status: Acute (5) Atrial fibrillation with RVR Status: Acute
--- NOTE | 2018-05-05 07:24 | CP.PCM.PN ---
<Disha Craven - Last Filed: 05/05/18 16:35> Subjective - Date & Time of Evaluation Date of Evaluation: 05/05/18 Time of Evaluation: 07:23 - Subjective Subjective: Medicine Progress Note for Dr. Tapia Patient seen and examined at bedside this morning with daughter in law. Patient knows her name and date but does not know where she is. Per family she has baseline dementia. Due to patient condition ROS unable to be obtained. Objective - Vital Signs/Intake and Output Vital Signs (last 24 hours): Temp Pulse Resp BP Pulse Ox 97.5 F L 92 H 20 161/99 H 94 L 05/04/18 23:30 05/04/18 23:30 05/04/18 23:30 05/04/18 23:30 05/04/18 23:30 Intake and Output: 05/05/18 05/05/18 06:59 18:59 Intake Total 830 Balance 830 - Medications Medications: Current Medications Acetaminophen (Tylenol 325mg Tab) 650 mg PO Q6 PRN PRN Reason: fever+pain Digoxin (Lanoxin) 0.25 mg IVP DAILY@1800 [facility] Last Admin: 05/04/18 17:44 Dose: 0.25 mg Famotidine (Pepcid) 20 mg IVP Q12 [facility] Last Admin: 05/04/18 21:37 Dose: 20 mg Furosemide (Lasix) 20 mg IVP DAILY [facility] Last Admin: 05/04/18 10:49 Dose: 20 mg Haloperidol Lactate (Haldol) 5 mg IVP ONCE PRN PRN Reason: Agitation Potassium Chloride/Dextrose/Sod Cl (Potassium Chl 40 Meq In D5-1/2ns) 1,000 mls @ 100 mls/hr IV .Q10H [facility] Last Admin: 05/04/18 17:41 Dose: Not Given Labetalol HCl (Trandate) 25 mg IVP Q6H PRN PRN Reason: Heart rate Last Admin: 04/30/18 12:03 Dose: 25 mg Lorazepam (Ativan) 1 mg IVP TID PRN PRN Reason: Agitation Last Admin: 05/04/18 00:45 Dose: 1 mg Methimazole (Tapazole) 10 mg PO DAILY [facility] Last Admin: 05/04/18 10:52 Dose: Not Given Propranolol HCl (Inderal) 20 mg PO TID [facility] Last Admin: 05/04/18 17:56 Dose: 20 mg - Labs Labs: 05/04/18 08:19 05/04/18 08:19 PT 11.1 SECONDS (9.7-12.2) 04/28/18 10:30 INR 1.0 04/28/18 10:30 APTT 185 SECONDS (21-34) H* D 04/29/18 08:40 - Constitutional Appears: Well, Non-toxic - Eye Exam Eye Exam: EOMI, Normal appearance - Neck Exam Neck Exam: Thyromegaly - Respiratory Exam Respiratory Exam: Clear to Ausculation Bilateral, NORMAL BREATHING PATTERN - Cardiovascular Exam Cardiovascular Exam: REGULAR RHYTHM - GI/Abdominal Exam GI & Abdominal Exam: Soft, Normal Bowel Sounds - Extremities Exam Extremities Exam: Normal Capillary Refill, Normal Inspection - Neurological Exam Neurological Exam: Alert, Awake - Skin Skin Exam: Dry, Intact, Normal Color, Warm Assessment and Plan - Assessment and Plan (Free Text) Assessment: 87 y/o female admitted for SOB. Found w/ new dx Afib w/ RVR and spiculated masses in lungs. Rapid Atrial fibrillation - resolved -patient admitted to ICU after being in the ED due to Afib w/ RVR - was on c ardizem drip and heparin drip -patient currently not on AC -> start eliquis today 05/05 2.5 mg BID CHF exacerbation -ECHO: EF of 55%, moderate pulm HTN, no pericardial effusion -Cardiology (Dr. Esposito) recs appreciated -c/w propanolol 20 mg PO TID -lasix 20 IVP daily for CHF exacerbation Spiculated Masses in Lungs -D-dimer 936 -trops negative -patient not in acute sob -CT angio: no PE. R-sided effusion with/ atelectasis. Spiculated pleural nodularity of L lung apex and R lung apex. -Concern for potential malignancy/metastasis, per Dr. Villalobos - Palliative care consulted, recs appreciated - family meeting 2pm today 05/05 - pending recommendations -CXR: cardiomegaly. numerous coarse calcifications in R neck and b/l axilla. R paratracheal mass. -CT angiogram: no PE. R-sided effusion with/ atelectasis. Spiculated pleural nodularity of L lung apex and R lung apex. - Pulm recs (Dr Villalobos) appreciated -s/p successful thoracentesis with 600 cc strawberry colored fluid removed -repeat CXR: Interval worsening L pleural effusion and potential underlying atelectasis or infiltrate at L base laterally. Improved R pleural effusion with underlying limited infiltrate remaining. Borderline pulmonary vascular congestion. Thyroid Goiter -TSH 0.04/free T4 1.15 -Thyroid U/S: Markedly enlarged heterogeneous gland with 6 nodules. Recommended f/u: radionuclide scan, FNA should also be considered -Endocrinology recs (Dr. Apodaca) appreciated -continue tapazole 10 mg PO TID after meals; eventually switch to maintenance dose 10 mg PO daily -further recs following serial studies -Methimazole 10 mg PO BID [facility] -Propanolol 20 mg PO TID [facility] -Digoxin 0.25 mg IVP Daily [facility] -Labetalol 25 mg IVP q6h prn -KCl 40 mgEq in D5W HTN - propranolol 20mg PO TID - labetalol PRN - patient not complaint with PO meds - Vasotec 2.5 mg IVP x 1 dose - continue monitoring Agitation - Ativan 1mg IVP TID PRN for agitation - cont monitor patient -DVT ppx: lovenox 80 q12 -GI ppx: pepcid 20 BID -Diet: HHD <Crista Tapia - Last Filed: 05/05/18 18:18> Objective - Vital Signs/Intake and Output Vital Signs (last 24 hours): Temp Pulse Resp BP Pulse Ox 98.0 F 92 H 20 172/86 H 96 05/05/18 15:00 05/05/18 16:16 05/05/18 15:00 05/05/18 15:00 05/05/18 15:00 Intake and Output: 05/05/18 05/05/18 06:59 18:59 Intake Total 830 Balance 830 - Labs Labs: 05/05/18 07:35 05/05/18 07:35 PT 11.1 SECONDS (9.7-12.2) 04/28/18 10:30 INR 1.0 04/28/18 10:30 APTT 185 SECONDS (21-34) H* D 04/29/18 08:40 Attending/Attestation - Attestation I have personally seen and examined this patient.: Yes I have fully participated in the care of the patient.: Yes I have reviewed all pertinent clinical information, including history, physical exam and plan: Yes Notes (Text): 87 yrs old female with history of dementia,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 G Daughter speaks [place]
[2018-05-05] MEDS: Potassium Chl 40 mEq in D5-1/2 1,000 ML IV SCH ×2 (08:07→13:09)
[2018-05-05 08:38] VITALS: O2SAT 96
[2018-05-05 08:44] LABS: ALB/GLOB RATIO 1.1 (1.0-2.1); ALBUMIN 3.7 g/dL (3.5-5.0)
[2018-05-05 09:11] LABS: BASO % 0.1 % (0.0-2.0); EOS # 0.1 K/uL (0.0-0.7); EOS % 0.6 % (0.0-4.0); LYMPH # 1.5 K/uL (1.0-4.3); LYMPH % 11.1 % (20.0-40.0); MEAN CORPUSCULAR HEMOGLOBIN 21.7 pg (27.0-31.0); MEAN CORPUSCULAR HGB CONC 30.1 g/dL (33.0-37.0); MONO # 0.8 K/uL (0.0-0.8); MONO % 5.9 % (0.0-10.0); NEUT # 11.1 K/uL (1.8-7.0); NEUT % 82.3 % (50.0-75.0); RBC 5.49 Mil/uL (3.80-5.20); RED CELL DISTRIBUTION WIDTH 18.2 % (11.5-14.5); WHITE BLOOD COUNT 13.5 K/uL (4.8-10.8)
[2018-05-05 09:16] LABS: HEMOGLOBIN 11.9 g/dL (11.0-16.0)
[2018-05-05] MEDS: Labetalol 5mg/ml (4ml) IVP PRN (14:14)
--- NOTE | 2018-05-05 15:16 | CP.PCM.PN ---
Subjective - Date & Time of Evaluation Date of Evaluation: 05/05/18 Time of Evaluation: 01:00 - Subjective Subjective: Patient examined in bd, very agitated, speaking angrily in her [place] language. Family member at bed side. Nursing is concerned with patient's refusing her BP meds yesterday. Patient seems more compliant today. BP 138/87, HR 77, O2 Sat 96 % NC Objective - Vital Signs/Intake and Output Vital Signs (last 24 hours): Temp Pulse Resp BP Pulse Ox 97.4 F L 77 20 138/87 96 05/05/18 08:00 05/05/18 14:21 05/05/18 08:00 05/05/18 14:21 05/05/18 14:21 Intake and Output: 05/05/18 05/05/18 06:59 18:59 Intake Total 830 Balance 830 - Medications Medications: Current Medications Acetaminophen (Tylenol 325mg Tab) 650 mg PO Q6 PRN PRN Reason: fever+pain Apixaban (Eliquis) 2.5 mg PO BID [facility] Digoxin (Lanoxin) 0.25 mg IVP DAILY@1800 [facility] Last Admin: 05/04/18 17:44 Dose: 0.25 mg Famotidine (Pepcid) 20 mg PO Q12 [facility] Furosemide (Lasix) 20 mg PO DAILY [facility] Haloperidol Lactate (Haldol) 5 mg IVP ONCE PRN PRN Reason: Agitation Potassium Chloride/Dextrose/Sod Cl (Potassium Chl 40 Meq In D5-1/2ns) 1,000 mls @ 100 mls/hr IV .Q10H [facility] Last Admin: 05/05/18 13:09 Dose: Not Given Labetalol HCl (Trandate) 25 mg IVP Q6H PRN PRN Reason: Heart rate Last Admin: 05/05/18 14:14 Dose: 25 mg Lorazepam (Ativan) 1 mg IVP TID PRN PRN Reason: Agitation Last Admin: 05/04/18 00:45 Dose: 1 mg Methimazole (Tapazole) 10 mg PO DAILY [facility] Last Admin: 05/05/18 10:53 Dose: 10 mg Propranolol HCl (Inderal) 20 mg PO TID [facility] Last Admin: 05/05/18 13:53 Dose: 20 mg - Labs Labs: 05/05/18 07:35 05/05/18 07:35 PT 11.1 SECONDS (9.7-12.2) 04/28/18 10:30 INR 1.0 04/28/18 10:30 APTT 185 SECONDS (21-34) H* D 04/29/18 08:40 - Constitutional Appears: No Acute Distress, Chronically Ill - Head Exam Head Exam: ATRAUMATIC, NORMAL INSPECTION, NORMOCEPHALIC - Eye Exam Eye Exam: EOMI, Normal appearance, PERRL Pupil Exam: NORMAL ACCOMODATION, PERRL - ENT Exam ENT Exam: Mucous Membranes Dry - Neck Exam Neck Exam: Normal Inspection - Respiratory Exam Respiratory Exam: Decreased Breath Sounds, NORMAL BREATHING PATTERN - Cardiovascular Exam Cardiovascular Exam: Tachycardia, Irregular Rhythm - GI/Abdominal Exam GI & Abdominal Exam: Soft, Normal Bowel Sounds - Rectal Exam Rectal Exam: Deferred - Extremities Exam Extremities Exam: Full ROM, Normal Capillary Refill, Normal Inspection - Back Exam Back Exam: NORMAL INSPECTION - Neurological Exam Neurological Exam: Alert, Altered Neuro motor strength exam: Left Upper Extremity: 2/1, Right Upper Extremity: 2/1, Left Lower Extremity: 2/1, Right Lower Extremity: 2/1 - Psychiatric Exam Psychiatric exam: Agitated, Anxious - Skin Skin Exam: Dry, Intact, Normal Color, Warm Assessment and Plan - Assessment and Plan (Free Text) Assessment: Patient examined in her bed, agitated with affect that is anxious and angry. Family at beds side, here for family Meeting; two brothers and granddaughter. Meeting is attended by Doctor Kirby, Doctor Zapata, Doctor Bone, Medical student, and myself. Using translation provided by Doctor Kirby and Bhavana, the granddaughter, we explained patient's chronic condition with occasional acute episodes due to lung mass. 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 Option of treating cancer with chemo Tx was ruled out due to patient's advanced age and family's advocating for comfort measures. They understood that due to cancer progression, was inevitable. We discussed with family their plans for patient either to return to [place] or to remain here in [facility]. We explained that since patient was in [facility] as a visitor she is not entitled to any help at home including Medications. Family stated understanding and stated they would keep patient [place] the [place]. Family was explained that due to A Fib patient was placed on Eliquis, blood thi nner. Doctor Tapia suggested we could provide supply for about 1 month, than family will need to pay it OOP. Family agreed. Code status discussed. POLST introduced. CPR and MV discussed. Family chose DNR/DNI. POLST signed. Family explained patient was stable for discharge today. Impression * Chronically ill lady, with lung mass * Respiratory distress * Confusion * Agitation * Family is supporting DNR/DNI status * Family agreed with home discharge * Family agreed to supply prescribed meds at home, as patient has no health insurance coverage Suggestion * Discharge home planing * promote safety * Reinforce PO meds at home as ordered * DNR/DNI Advance care planing 50 min. Palliative care will sign off at this time. Thank you for this interesting consult.
[2018-05-05 15:50] VITALS: BP 172/86; TEMP 98
[2018-05-05 16:19] VITALS: PULSE 92
--- NOTE | 2018-05-05 16:33 | CP.PCM.DIS ---
<Disha Craven - Last Filed: 05/05/18 16:39> Provider - Provider Date of Admission: 04/28/18 15:35 Attending physician: Crista Tapia MD Consults: 04/28/18 16:24 Cardiology Consult Stat Comment: Consulting Provider: Pedro Esposito Consulting Physician: Pedro Esposito Reason for Consult: pt with new onset rapid a. fib Endocrinology Consult Stat Comment: Consulting Provider: Nicole Apodaca Consulting Physician: Nicole Apodaca Reason for Consult: pt with h/o thyroid goiter, hyperthyroid Pulmonology Consult Stat Comment: Consulting Provider: Beny Villalobos Consulting Physician: Beny Villalobos Reason for Consult: pt w rapid a. 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 04/29/18 17:34 Pleural Fluid Body Fluid Culture - Final No growth. 04/29/18 17:34 Other: Please Indicate Fungal Culture - Preliminary 04/29/18 17:34 Other: Please Indicate Mycobacterial Culture - Preliminary 04/29/18 21:53 Naris MRSA Culture - Final MRSA NOT DETECTED 04/29/18 05:44 Urine,Clean Catch Urine Culture - Final No Growth (<1,000 CFU/ML) 04/28/18 21:41 Naris MRSA Culture (Admit) - Final MRSA NOT DETECTED Most Recent Lab Values WBC 13.5 K/uL (4.8-10.8) H 05/05/18 07:35 RBC 5.49 Mil/uL (3.80-5.20) H 05/05/18 07:35 Hgb 11.9 g/dL (11.0-16.0) 05/05/18 07:35 Hct 39.5 % (34.0-47.0) 05/05/18 07:35 MCV 72.0 fL (81.0-99.0) L 05/05/18 07:35 MCH 21.7 pg (27.0-31.0) L 05/05/18 07:35 MCHC 30.1 g/dL (33.0-37.0) L 05/05/18 07:35 RDW 18.2 % (11.5-14.5) H 05/05/18 07:35 Plt Count 188 K/uL (130-400) 05/05/18 07:35 MPV 9.0 fL (7.2-11.7) 05/05/18 07:35 Neut % (Auto) 82.3 % (50.0-75.0) H 05/05/18 07:35 Lymph % (Auto) 11.1 % (20.0-40.0) L 05/05/18 07:35 [place] % (Auto) 5.9 % (0.0-10.0) 05/05/18 07:35 Eos % (Auto) 0.6 % (0.0-4.0) 05/05/18 07:35 Baso % (Auto) 0.1 % (0.0-2.0) 05/05/18 07:35 Neut # (Auto) 11.1 K/uL (1.8-7.0) H 05/05/18 07:35 Lymph # (Auto) 1.5 K/uL (1.0-4.3) 05/05/18 07:35 [place] # (Auto) 0.8 K/uL (0.0-0.8) 05/05/18 07:35 Eos # (Auto) 0.1 K/uL (0.0-0.7) 05/05/18 07:35 Baso # (Auto) 0.0 K/uL (0.0-0.2) 05/05/18 07:35 Retic Count 1.2 % (0.5-1.5) 04/29/18 06:28 PT 11.1 SECONDS (9.7-12.2) 04/28/18 10:30 INR 1.0 04/28/18 10:30 APTT 185 SECONDS (21-34) H* D 04/29/18 08:40 D-Dimer, Quantitative 936 ng/mlDDU (0-243) H 04/28/18 10:30 Sodium 139 mmol/L (132-148) 05/05/18 07:35 Potassium 4.6 mmol/L (3.6-5.2) 05/05/18 07:35 Chloride 100 mmol/L (98-107) 05/05/18 07:35 Carbon Dioxide 31 mmol/L (22-30) H 05/05/18 07:35 Anion Gap 13 (10-20) 05/05/18 07:35 BUN 23 mg/dL (7-17) H 05/05/18 07:35 Creatinine 1.5 mg/dL (0.7-1.2) H 05/05/18 07:35 Est GFR ( Amer) 40 05/05/18 07:35 Est GFR (Non-Af Amer) 33 05/05/18 07:35 POC Glucose (mg/dL) 138 mg/dL (65-110) H 04/30/18 05:04 Random Glucose 131 mg/dL (65-105) H 05/05/18 07:35 Calcium 9.0 mg/dl (8.6-10.4) 05/05/18 07:35 Phosphorus 4.7 mg/dL (2.5-4.5) H 05/03/18 08:20 Magnesium 1.7 mg/dL (1.6-2.3) 05/03/18 08:20 Iron 20 ug/dL (37-170) L 04/29/18 06:28 TIBC 393 ug/dL (250-450) 04/29/18 06:28 % Saturation 5 (20-55) L 04/29/18 06:28 Transferrin 287.78 mg/dL (206-381) 04/29/18 06:28 Ferritin 10.9 ng/mL 04/29/18 06:28 Total Bilirubin 0.9 mg/dL (0.2-1.3) 05/05/18 07:35 AST 27 U/L (14-36) 05/05/18 07:35 ALT 32 U/L (9-52) 05/05/18 07:35 Alkaline Phosphatase 90 U/L (38-126) 05/05/18 07:35 Troponin I 0.0640 ng/mL (0.00-0.120) 04/28/18 10:30 NT-Pro-B Natriuret Pep 1190 pg/mL (0-900) H 04/28/18 10:30 Total Protein 7.0 g/dL (6.3-8.3) 05/05/18 07:35 Albumin 3.7 g/dL (3.5-5.0) 05/05/18 07:35 Globulin 3.2 gm/dL (2.2-3.9) 05/05/18 07:35 Albumin/Globulin Ratio 1.1 (1.0-2.1) 05/05/18 07:35 25-OH Vitamin D Total < 12.8 NG/ML (30.0-100.0) L 04/29/18 06:28 Free T4 1.08 ng/dL (0.78-2.19) 05/01/18 07:10 Thyroxine (T4) 6.42 ug/dL (5.5-11.0) 05/01/18 07:10 Total T3 1.90 nmol/L (1.49-2.60) 04/28/18 17:22 TSH 3rd Generation 0.14 mIU/L (0.46-4.68) L 05/01/18 07:10 Cortisol AM Sample 60.3 ug/dL (4.46-22.7) H 04/29/18 06:28 Urine Color Straw (YELLOW) 04/28/18 11:20 Urine Clarity Clear (Clear) 04/28/18 11:20 Urine pH 6.0 (5.0-8.0) 04/28/18 11:20 Ur Specific [place] 1.010 (1.003-1.030) 04/28/18 11:20 Urine Protein Negative mg/dL (NEGATIVE) 04/28/18 11:20 Urine Glucose (UA) Normal mg/dL (Normal) 04/28/18 11:20 Urine Ketones Negative mg/dL (NEGATIVE) 04/28/18 11:20 Urine Blood Negative (NEGATIVE) 04/28/18 11:20 Urine Nitrate Negative (NEGATIVE) 04/28/18 11:20 Urine Bilirubin Negative (NEGATIVE) 04/28/18 11:20 Urine Urobilinogen Normal mg/dL (0.2-1.0) 04/28/18 11:20 Ur Leukocyte Esterase 2+ Andrea/uL (Negative) H 04/28/18 11:20 Urine WBC (Auto) 37 /hpf (0-5) H 04/28/18 11:20 Urine RBC (Auto) 2 /hpf (0-3) 04/28/18 11:20 Ur Squamous Epith Cells < 1 /hpf (0-5) 04/28/18 11:20 Urine Bacteria Rare (<OCC) 04/28/18 11:20 Urine Yeast (Budding) Occ /hpf (NEGATIVE) H 04/28/18 11:20 Fluid Source Pleural/thoracentesi 04/29/18 18:24 Fluid Appearance Sl cloudy (CLEAR) 04/29/18 18:24 Fluid pH 7.9 04/29/18 17:34 Fluid pH Source Body fluid 04/29/18 17:34 Fluid WBC 540.0 /mm3 (0.0-300.0) H 04/29/18 18:24 Fluid RBC 720.0 /mm3 (0.0-0.0) H 04/29/18 18:24 Fluid Tot Cell Count TEST NOT PERFORMED 04/29/18 18:24 Fluid Neutrophils 1.0 % (0-0) H 04/29/18 18:24 Fluid Lymphocytes 98.0 % (0-0) H 04/29/18 18:24 Fld Monocyte/Macrophag 1 % (0-0) H 04/29/18 18:24 Fluid Comment 04/29/18 18:24 Pleural Total Protein <3.0 g/dL 04/29/18 17:34 Pleural LDH 144 U/L 04/29/18 17:34 Pleural Glucose 193 mg/dL 04/29/18 17:34 Thyroperoxidase Ab <1 IU/mL (<9) 04/29/18 07:19 - Hospital Course Hospital Course: On admission: Pt is an 87yo [place] F with PMH HTN and thyroid goiter who presents to ED with shortness of breath for the past 2 weeks. She is with daughter at bedside who is translating. Daughter reports pt has been short of breath for 2 weeks, and it has gotten progressively worse. She reports shortness of breath at rest and with walking. She reports palptiations. She denies chest pain, dizziness, or loss of consciousness. She does report associated intermittent sweating. She denies weight loss, hair loss, diarrhea. She denies nausea, vomiting, dysuria. Daughter reports that pt lives at home with her and can perform ADLs on her own. She ambulates without difficulty at home. Daughter denies previous history of arrythmia in the patient On discharge: Patient was admitted 04/28 and discharged 05/05. Patient was initially to the ICU for one night. ICU admission initially indicated for treatment of newly diagnosed Afib w/ RVR due to cardizem drip treatment. Patient also started on heparin drip for anticoagulation. After being treated, shortness of breath and p alpitations decreased. CT angio negative for pulmonary embolism but had spiculated pleural nodularity of bilateral apices. Patient had thoracentesis performed. The fluid tapped from the lungs suggest infection and malignancy but unknown where the primary origin is for malignancy. On 05/05 palliative care had a family meeting where patient's graddaughter and two of her sons met with the medical team and the palliative care RN. Patient's family agrees w/ comfort care, to [place], possibly hospice. Patient's lack of insurance does not make her a hospice candidate. The decision is to discharge her and if she is to have increasing symptoms, she is to return as inpatient for care. Also, patient's son signed POLST in chart; code status decided DNR/DNI. Patient advised to take eliquis and her medications for her thyroid (listed in DC instructions). She is also advised to f/u in the [facility] clinic (listed in DC instructions) Discharge instructions: 1) follow up with [facility] on the ground floor of [facility]. An appointment has been made May 23, 2018 at 1pm. Should you need to reschedule, call them at [phone] 2) Take the following medications: apixaban (eliquis) 2.5 mg PO BID furosemide (lasix) 20 mg PO BID methimazole (tapazole) 10 mg PO daily propanolol (inderal) 20 mg PO TID 3) Patient's diagnoses of Atrial fibrillation, lung nodules, and thyroid goiter could cause her to rapidly decompensate. To avoid that, please take the medications as prescribed and follow up with the [facility]. The medications are only for one month supply. If there is chest pain, increasing shortness of breath, palpitations, sudden weakness, or facial droop, please visit the emergency room immediately. Discharge Exam - Head Exam Head Exam: ATRAUMATIC, NORMAL INSPECTION, NORMOCEPHALIC - Eye Exam Eye Exam: EOMI, Normal appearance - Neck Exam Neck exam: Thyromegaly - Respiratory Exam Respiratory Exam: NORMAL BREATHING PATTERN, UNREMARKABLE - Cardiovascular Exam Cardiovascular Exam: REGULAR RHYTHM - GI/Abdominal Exam GI & Abdominal Exam: Normal Bowel Sounds, Unremarkable - Extremities Exam Extremities exam: normal capillary refill - Neurological Exam Neurological exam: Alert, Altered (A&O x 2 - she does not know where she is) - Skin Skin Exam: Dry, Intact, Normal Color, Warm Discharge Plan - Discharge Medications Prescriptions: Apixaban [Eliquis] 2.5 mg PO BID #60 tab Furosemide [Lasix] 20 mg PO DAILY #30 tab methIMAzole [Tapazole] 10 mg PO DAILY #30 tab Propranolol [Inderal] 20 mg PO TID #90 tab - Follow Up Plan Condition: STABLE Disposition: HOME/ ROUTINE Instructions: Multinodular Goiter, Atrial Fibrillation (DC), Apixaban, Furosemide, Methimazole, Propranolol Additional Instructions: 1) follow up with [facility] on the ground floor of [facility]. An appointment has been made May 23, 2018 at 1pm. Should you need to reschedule, call them at [phone] 2) Take the following medications: apixaban (eliquis) 2.5 mg PO BID furosemide (lasix) 20 mg PO BID methimazole (tapazole) 10 mg PO daily propanolol (inderal) 20 mg PO TID 3) Patient's diagnoses of Atrial fibrillation, lung nodules, and thyroid goiter could cause her to rapidly decompensate. To avoid that, please take the medications as prescribed and follow up with the [facility]. The medications are only for one month supply. If there is chest pain, increasing shortness of breath, palpitations, sudden weakness, or facial droop, please visit the emergency room immediately. Referrals: Beny Villalobos MD [Staff Provider] - Pedro Esposito MD [Staff Provider] - Nicole Apodaca MD [Medical Doctor] - Deja Ching MD [Staff Provider] - <Crista Tapia - Last Filed: 05/05/18 18:16> Provider - Provider Date of Admission: 04/28/18 15:35 Attending physician: Crista Tapia MD Consults: 04/28/18 16:24 Cardiology Consult Stat Comment: Consulting Provider: Pedro Esposito Consulting Physician: Pedro Esposito Reason for Consult: pt with new onset rapid a. fib Endocrinology Consult Stat Comment: Consulting Provider: Nicole Apodaca Consulting Physician: Nicole Apodaca Reason for Consult: pt with h/o thyroid goiter, hyperthyroid Pulmonology Consult Stat Comment: Consulting Provider: Beny Villalobos Consulting Physician: Beny Villalobos Reason for Consult: pt w rapid a. 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 04/29/18 17:34 Pleural Fluid Body Fluid Culture - Final No growth. 04/29/18 17:34 Other: Please Indicate Fungal Culture - Preliminary 04/29/18 17:34 Other: Please Indicate Mycobacterial Culture - Preliminary 04/29/18 21:53 Naris MRSA Culture - Final MRSA NOT DETECTED 04/29/18 05:44 Urine,Clean Catch Urine Culture - Final No Growth (<1,000 CFU/ML) 04/28/18 21:41 Naris MRSA Culture (Admit) - Final MRSA NOT DETECTED Most Recent Lab Values WBC 13.5 K/uL (4.8-10.8) H 05/05/18 07:35 RBC 5.49 Mil/uL (3.80-5.20) H 05/05/18 07:35 Hgb 11.9 g/dL (11.0-16.0) 05/05/18 07:35 Hct 39.5 % (34.0-47.0) 05/05/18 07:35 MCV 72.0 fL (81.0-99.0) L 05/05/18 07:35 MCH 21.7 pg (27.0-31.0) L 05/05/18 07:35 MCHC 30.1 g/dL (33.0-37.0) L 05/05/18 07:35 RDW 18.2 % (11.5-14.5) H 05/05/18 07:35 Plt Count 188 K/uL (130-400) 05/05/18 07:35 MPV 9.0 fL (7.2-11.7) 05/05/18 07:35 Neut % (Auto) 82.3 % (50.0-75.0) H 05/05/18 07:35 Lymph % (Auto) 11.1 % (20.0-40.0) L 05/05/18 07:35 [place] % (Auto) 5.9 % (0.0-10.0) 05/05/18 07:35 Eos % (Auto) 0.6 % (0.0-4.0) 05/05/18 07:35 Baso % (Auto) 0.1 % (0.0-2.0) 05/05/18 07:35 Neut # (Auto) 11.1 K/uL (1.8-7.0) H 05/05/18 07:35 Lymph # (Auto) 1.5 K/uL (1.0-4.3) 05/05/18 07:35 [place] # (Auto) 0.8 K/uL (0.0-0.8) 05/05/18 07:35 Eos # (Auto) 0.1 K/uL (0.0-0.7) 05/05/18 07:35 Baso # (Auto) 0.0 K/uL (0.0-0.2) 05/05/18 07:35 Retic Count 1.2 % (0.5-1.5) 04/29/18 06:28 PT 11.1 SECONDS (9.7-12.2) 04/28/18 10:30 INR 1.0 04/28/18 10:30 APTT 185 SECONDS (21-34) H* D 04/29/18 08:40 D-Dimer, Quantitative 936 ng/mlDDU (0-243) H 04/28/18 10:30 Sodium 139 mmol/L (132-148) 05/05/18 07:35 Potassium 4.6 mmol/L (3.6-5.2) 05/05/18 07:35 Chloride 100 mmol/L (98-107) 05/05/18 07:35 Carbon Dioxide 31 mmol/L (22-30) H 05/05/18 07:35 Anion Gap 13 (10-20) 05/05/18 07:35 BUN 23 mg/dL (7-17) H 05/05/18 07:35 Creatinine 1.5 mg/dL (0.7-1.2) H 05/05/18 07:35 Est GFR ( Amer) 40 05/05/18 07:35 Est GFR (Non-Af Amer) 33 05/05/18 07:35 POC Glucose (mg/dL) 138 mg/dL (65-110) H 04/30/18 05:04 Random Glucose 131 mg/dL (65-105) H 05/05/18 07:35 Calcium 9.0 mg/dl (8.6-10.4) 05/05/18 07:35 Phosphorus 4.7 mg/dL (2.5-4.5) H 05/03/18 08:20 Magnesium 1.7 mg/dL (1.6-2.3) 05/03/18 08:20 Iron 20 ug/dL (37-170) L 04/29/18 06:28 TIBC 393 ug/dL (250-450) 04/29/18 06:28 % Saturation 5 (20-55) L 04/29/18 06:28 Transferrin 287.78 mg/dL (206-381) 04/29/18 06:28 Ferritin 10.9 ng/mL 04/29/18 06:28 Total Bilirubin 0.9 mg/dL (0.2-1.3) 05/05/18 07:35 AST 27 U/L (14-36) 05/05/18 07:35 ALT 32 U/L (9-52) 05/05/18 07:35 Alkaline Phosphatase 90 U/L (38-126) 05/05/18 07:35 Troponin I 0.0640 ng/mL (0.00-0.120) 04/28/18 10:30 NT-Pro-B Natriuret Pep 1190 pg/mL (0-900) H 04/28/18 10:30 Total Protein 7.0 g/dL (6.3-8.3) 05/05/18 07:35 Albumin 3.7 g/dL (3.5-5.0) 05/05/18 07:35 Globulin 3.2 gm/dL (2.2-3.9) 05/05/18 07:35 Albumin/Globulin Ratio 1.1 (1.0-2.1) 05/05/18 07:35 25-OH Vitamin D Total < 12.8 NG/ML (30.0-100.0) L 04/29/18 06:28 Free T4 1.08 ng/dL (0.78-2.19) 05/01/18 07:10 Thyroxine (T4) 6.42 ug/dL (5.5-11.0) 05/01/18 07:10 Total T3 1.90 nmol/L (1.49-2.60) 04/28/18 17:22 TSH 3rd Generation 0.14 mIU/L (0.46-4.68) L 05/01/18 07:10 Cortisol AM Sample 60.3 ug/dL (4.46-22.7) H 04/29/18 06:28 Urine Color Straw (YELLOW) 04/28/18 11:20 Urine Clarity Clear (Clear) 04/28/18 11:20 Urine pH 6.0 (5.0-8.0) 04/28/18 11:20 Ur Specific [place] 1.010 (1.003-1.030) 04/28/18 11:20 Urine Protein Negative mg/dL (NEGATIVE) 04/28/18 11:20 Urine Glucose (UA) Normal mg/dL (Normal) 04/28/18 11:20 Urine Ketones Negative mg/dL (NEGATIVE) 04/28/18 11:20 Urine Blood Negative (NEGATIVE) 04/28/18 11:20 Urine Nitrate Negative (NEGATIVE) 04/28/18 11:20 Urine Bilirubin Negative (NEGATIVE) 04/28/18 11:20 Urine Urobilinogen Normal mg/dL (0.2-1.0) 04/28/18 11:20 Ur Leukocyte Esterase 2+ Andrea/uL (Negative) H 04/28/18 11:20 Urine WBC (Auto) 37 /hpf (0-5) H 04/28/18 11:20 Urine RBC (Auto) 2 /hpf (0-3) 04/28/18 11:20 Ur Squamous Epith Cells < 1 /hpf (0-5) 04/28/18 11:20 Urine Bacteria Rare (<OCC) 04/28/18 11:20 Urine Yeast (Budding) Occ /hpf (NEGATIVE) H 04/28/18 11:20 Fluid Source Pleural/thoracentesi 04/29/18 18:24 Fluid Appearance Sl cloudy (CLEAR) 04/29/18 18:24 Fluid pH 7.9 04/29/18 17:34 Fluid pH Source Body fluid 04/29/18 17:34 Fluid WBC 540.0 /mm3 (0.0-300.0) H 04/29/18 18:24 Fluid RBC 720.0 /mm3 (0.0-0.0) H 04/29/18 18:24 Fluid Tot Cell Count TEST NOT PERFORMED 04/29/18 18:24 Fluid Neutrophils 1.0 % (0-0) H 04/29/18 18:24 Fluid Lymphocytes 98.0 % (0-0) H 04/29/18 18:24 Fld Monocyte/Macrophag 1 % (0-0) H 04/29/18 18:24 Fluid Comment 04/29/18 18:24 Pleural Total Protein <3.0 g/dL 04/29/18 17:34 Pleural LDH 144 U/L 04/29/18 17:34 Pleural Glucose 193 mg/dL 04/29/18 17:34 Thyroperoxidase Ab <1 IU/mL (<9) 04/29/18 07:19 Attending/Attestation - Attestation I have personally seen and examined this patient.: Yes I have fully participated in the care of the patient.: Yes I have reviewed all pertinent clinical information, including history, physical exam and plan: Yes Notes (Text): Patient is comfortable on bed saturating 96% on room air. She is confused due to dementia. patient is here in [facility] for about 4months. As per her sons and grandaughter she is going to stay is [facility]. Discussed about her lung condition ,afib,thyroid problem and dementia. Family state that she needs care at home. They understand possible malignancy and poor prognosis.They want her to have comfort care. Patient will be discharged home on meds with family. As per she is not eligible for service due to lack of insurance
[2018-05-05] MEDS: Digoxin 500 mcg/2ml (0.5 mg/2ml) Inj IVP SCH (17:17)
[2018-05-05 17:18] VITALS: PULSE 90
[2018-05-06 16:33] LABS: TSI <89 % baseline (<140)
== END 2018-05-05 18:01 | disposition home or self-care (01) | DRG 424 ==
LOC: C.ER 09:24 → C.9I 15:35 → C.3T 04-29 21:11 → C.5S 04-30 08:58
PROVIDERS: ADMIT Hospitalist; ATTEND Internal Medicine
PROC: 0W993ZZ Drainage of Right Pleural Cavity, Percutaneous Approach (ICD-10-PCS; principal; 2018-04-29)
PROC: BB4BZZZ Ultrasonography of Pleura (ICD-10-PCS; 2018-04-29)
DX: E05.21 Thyrotoxicosis with toxic multinodular goiter with thyrotoxic crisis or storm (principal); I48.91 Unspecified atrial fibrillation; J90 Pleural effusion, not elsewhere classified; I11.0 Hypertensive heart disease with heart failure; I50.20 Unspecified systolic (congestive) heart failure; I27.20 Pulmonary hypertension, unspecified; D64.9 Anemia, unspecified; J98.11 Atelectasis; K59.00 Constipation, unspecified; R32 Unspecified urinary incontinence; F03.90 Unspecified dementia, unspecified severity, without behavioral disturbance, psychotic disturbance, mood disturbance, and anxiety; Z66 Do not resuscitate; Z51.5 Encounter for palliative care; Z91.14 Patient's other noncompliance with medication regimen; Z79.899 Other long term (current) drug therapy

== ENCOUNTER 2018-05-20 21:14 | Inpatient (IN) | payer MEDICAID, OTHER ==
[2018-05-20 21:15] VITALS: PULSE 106
--- NOTE | 2018-05-20 21:39 | C.PDOC ---
History Of Present Illness Patient brought in by daughter for decreased appetite and altered mental status over the last few days. Patient has not been eating and not taking her medications. Unable to obtain Hx from patient. She was recently admitted here with new onset afib and thyroid goiter, placed on medication which she has not taken in the last few days. Denies fever or chills. Time Seen by Provider: 05/20/18 21:39 Chief Complaint (Nursing): Altered Mental Status History Per: Family History/Exam Limitations: None Onset/Duration Of Symptoms: Days Onset Of Symptoms: Cannot Confirm Onset Current Symptoms Are (Timing): Still Present Usual Baseline: Alert Oriented Severity: Moderate Pain Scale Rating Of: 4 Recent travel outside of the [place]: No Associated Symptoms: denies: Fever, Chills Past Medical History Reviewed: Historical Data, Nursing Documentation, Vital Signs Vital Signs: Last Vital Signs Temp 98.0 F 05/20/18 21:36 Pulse 110 H 05/20/18 21:36 Resp 16 05/20/18 21:36 BP 129/85 05/20/18 21:36 Pulse Ox 96 05/20/18 21:36 - Medical History PMH: HTN - [facility] Procedures DRAINAGE OF RIGHT PLEURAL CAVITY, PERCUTANEOUS APPROACH (04/28/18) ULTRASONOGRAPHY OF PLEURA (04/28/18) Family History: States: No Known Family Hx - Social History Hx Alcohol Use: No Hx Substance Use: No - Immunization History Hx Tetanus Toxoid Vaccination: No Hx Influenza Vaccination: No Hx Pneumococcal Vaccination: No Review Of Systems Review Of Systems: ROS cannot be obtained secondary to pt's inabilty to answer questions. Physical Exam - Physical Exam Appears: Non-toxic, In Acute Distress Skin: Warm, Dry, Other (very poor turgor) Head: Normacephalic Eye(s): bilateral: Normal Inspection Oral Mucosa: Dry Tongue: Other (dry) Lips: Other (dry) Neck: Trachea Midline, Supple, Other (Large goiter) Chest: Symmetrical, No Tenderness Cardiovascular: Rhythm Regular Respiratory: No Rales, Rhonchi (Scattered), No Wheezing Gastrointestinal/Abdominal: Soft, Tenderness (Mildly diffuse), No Guarding, No Rebound, Other (distended bladder) Extremity: Other (Left left more swollen than right. Moves all extremities.) Neurological/Psych: Other (Awake, alert, orientedx1) ED Course And Treatment - Laboratory Results Result Diagrams: 05/20/18 21:40 05/20/18 21:40 ECG: Interpreted By Me, Viewed By Me ECG Rhythm: Sinus Rhythm (109), L BBB O2 Sat by Pulse Oximetry: 96 (room air) Pulse Ox Interpretation: Normal - Radiology CXR: Interpreted by Me, Viewed By Me CXR Interpretation: Yes: Cardiomegaly, Other (small left effusion, improved from 1.9.19). No: Infiltrates, Fracture Progress Note: Blood work, EKG, blood work, CXR, urinalysis, and flu swab ordered. IV fluids administered. 10:[address] smith - will come and see the pt in the ed. placed calhoun - about 1800cc of clear urine drained. calhoun clamped Critical Care Time - Critical Care Note Total Time (in mins): 40 Documented critical care: time excludes all time spent performing seperately billable procedures. Disposition Discussed With : John Ramos Comment: accepted the pt on his service and took over the care at12:10AM Doctor Will See Patient In The: ED Counseled Patient/Family Regarding: Studies Performed, Diagnosis - Disposition Disposition: HOSPITALIZED Disposition Time: 21:45 Condition: CRITICAL - Clinical Impression Clinical Impression: Thyroid goiter, Hyperkalemia, Urinary retention, Acute renal failure - Scribe Statement The provider has reviewed the documentation as recorded by the Scribe Martin Lopes All medical record entries made by the Scribe were at my direction and personally dictated by me. I have reviewed the chart and agree that the record accurately reflects my personal performance of the history, physical exam, me dical decision making, and the department course for this patient. I have also personally directed, reviewed, and agree with the discharge instructions and disposition. Decision To Admit - Pt Status Changed To: Hospital Disposition Of: Inpatient - Admit Certification Admit to Inpatient:: After my assessment, the patient will require hospitalization for at least two midnights. This is because of the severity of symptoms shown, intensity of services needed, and/or the medical risk in this patient being treated as an outpatient. - InPatient: Physician Admission Certification:: After my assessment, the patient will require hospitalization for at least two midnights. This is because of the severity of symptoms shown, intensity of services needed, and/or the medical risk in this patient being treated as an outpatient. - . Bed Request Type: ICU Admitting Physician: John Ramos Patient Diagnosis: Thyroid goiter, Hyperkalemia, Urinary retention, Acute renal failure
[2018-05-20] MEDS ORDERED: Sodium Chloride 0.9% 1,000 ML IV ONE (21:40)
[2018-05-20 21:55] LABS: HEMOGLOBIN 12.5 g/dL (11.0-16.0); MEAN CORPUSCULAR HEMOGLOBIN 21.3 pg (27.0-31.0); MONO # 0.5 K/uL (0.0-0.8); RED CELL DISTRIBUTION WIDTH 20.9 % (11.5-14.5)
[2018-05-20 22:08] LABS: VENOUS BLOOD GAS BASE EXCESS -8.5 mmol/L (0.0-2.0); VENOUS BLOOD GAS PCO2 42 mmHg (40-60); VENOUS BLOOD GAS PO2 35 mm/Hg (30-55); VENOUS BLOOD PH 7.25 (7.32-7.43)
[2018-05-20 22:22] LABS: TROPONIN I 0.078 ng/mL (0.00-0.120)
[2018-05-20 22:34] LABS: INR 1.2; PROTHROMBIN TIME 13.4 SECONDS (9.7-12.2)
[2018-05-20 22:43] LABS: BASO # 0.1 K/uL (0.0-0.2); BASO % 0.4 % (0.0-2.0); LYMPH # 1.8 K/uL (1.0-4.3); LYMPH % 10.7 % (20.0-40.0); MONO % 2.8 % (0.0-10.0); NEUT # 14.8 K/uL (1.8-7.0); NEUT % 86.1 % (50.0-75.0); RBC 5.85 Mil/uL (3.80-5.20); WHITE BLOOD COUNT 17.2 K/uL (4.8-10.8)
[2018-05-20 22:47] LABS: ALB/GLOB RATIO 1.1 (1.0-2.1); ALBUMIN 4.2 g/dL (3.5-5.0); CALCIUM 9.3 mg/dl (8.6-10.4)
[2018-05-20] MEDS ORDERED: Calcium Gluconate 4.65 MEQ in Dextrose 5% In Water 100 ML IVPB ONE (22:48)
[2018-05-20] MEDS ORDERED: (Novolin R) Insulin Human Regular 100 units/ml vial IVP ONE (22:49)
[2018-05-20] MEDS ORDERED: Dextrose 50% SYRINGE Inj (50 ml) IV STA (22:49)
[2018-05-20] MEDS ORDERED: Sodium Bicarbonate (8.4%) 50 Meq Syringe IVP STA (22:53)
[2018-05-20] MEDS ORDERED: Albuterol-Ipratrop 3 mg / 0.5 (3 ml) UD ONE (23:05)
[2018-05-20] MEDS ORDERED: Sod Polystyrene Sulf 15 gm/60 ml Susp ONE (23:06)
[2018-05-20] MEDS ORDERED: (Novolin R) Insulin Human Regular 100 units/ml vial ONE (23:06)
[2018-05-20] MEDS ORDERED: Calcium Gluconate 4.65 mEq/10 ml Inj ONE (23:07)
[2018-05-20] MEDS ORDERED: Sodium Bicarbonate (8.4%) 50 Meq Syringe ONE (23:07)
[2018-05-20] MEDS ORDERED: Dextrose 50% SYRINGE Inj (50 ml) ONE (23:09)
[2018-05-20] MEDS ORDERED: Enoxaparin 40 mg Syringe SC STA (23:23)
--- NOTE | 2018-05-20 23:39 | CP.PCM.CON ---
History of Present Illness - History of Present Illness History of Present Illness: CCM 87 yo femmariza wiht hx A-fib /Goiter /? malignancy recently in [facility] now brought by family b/o alterred MS and not eating for weeks. +nausea. +diarrhea. Pt found to be in renal failure with K+ 8.7. IV fluids started in ED and Fermin inserted with >1 liter UO. ROS- as noted All- NKDASocial- no tob/ etoh/ drugs Meds- reviewed/ no eliquis for few days FH- Unknown PE T-98 P_110 R-16 BP129 /85 Perrl Neck-+goiter, no jvd Lungs- bilat bs hrt-irreg irreg Abd- bs+, +distended tender bladder otherwise soft Ext- LLE swelling Neuro- moves all ext Labs, x-rays, ekg-reviewed A&P Hyperkalemia Acute Renal Failure due to obstruction & volume depletion A-fib LLE Swelling Goiter ? Hx Malignancy dmit to ICU when bed available treat hyperkalemia and f/u levels IV fluids I&O's optimize lytes Nephrology eval renal and LE sono UA /lytes address advance directives with daughter critical care time 40 min. Past Patient History - Infectious Disease Hx of Infectious Diseases: None - Past Medical History & Family History Past Medical History?: Yes - Past Social History Smoking Status: Never Smoked - CARDIAC Hx Hypertension: Yes - ENDOCRINE/METABOLIC Other/Comment: goiter - MUSCULOSKELETAL/RHEUMATOLOGICAL Hx Falls: No - PSYCHIATRIC Hx Substance Use: No - SURGICAL HISTORY Hx Surgeries: No - ANESTHESIA Hx Anesthesia: No Meds Allergies/Adverse Reactions: Allergies Allergy/AdvReac Type Severity Reaction Status Date / Time No Known Allergies Allergy Verified 04/28/18 10:06 Results - Vital Signs Recent Vital Signs: Last Vital Signs Temp 98.0 F 05/20/18 21:36 Pulse 110 H 05/20/18 21:36 Resp 16 05/20/18 21:36 BP 129/85 05/20/18 21:36 Pulse Ox 96 05/20/18 23:29 - Labs Result Diagrams: 05/20/18 21:40 05/20/18 21:40 Labs: Laboratory Results - last 24 hr 05/20/18 05/20/18 05/20/18 21:40 21:40 21:40 WBC 17.2 H RBC 5.85 H Hgb 12.5 Hct 41.2 MCV 71.0 L MCH 21.3 L MCHC 30.0 L RDW 20.9 H Plt Count 154 MPV 9.0 Neut % (Auto) 86.1 H Lymph % (Auto) 10.7 L [place] % (Auto) 2.8 Eos % (Auto) 0.0 Baso % (Auto) 0.4 Neut # (Auto) 14.8 H Lymph # (Auto) 1.8 [place] # (Auto) 0.5 Eos # (Auto) 0.0 Baso # (Auto) 0.1 PT 13.4 H INR 1.2 APTT 31 pO2 VBG pH VBG pCO2 VBG HCO3 VBG Total CO2 VBG O2 Sat (Calc) VBG Base Excess VBG Potassium Glucose Lactate Crit Value Called To Crit Value Called By Crit Value Read Back Blood Gas Notified Time Sodium 139 Potassium 8.7 H* D Chloride 99 Carbon Dioxide 16 L Anion Gap 32 H BUN 187 H* D Creatinine 19.3 H* D Est GFR ( Amer) 2 Est GFR (Non-Af Amer) 2 POC Glucose (mg/dL) Random Glucose 164 H D Calcium 9.3 Magnesium 2.7 H Total Bilirubin 1.0 AST 30 ALT 8 L D Alkaline Phosphatase 87 Troponin I 0.0780 NT-Pro-B Natriuret Pep Total Protein 8.1 Albumin 4.2 Globulin 3.9 Albumin/Globulin Ratio 1.1 Lipase 507 H TSH 3rd Generation 0.28 L Venous Blood Potassium 05/20/18 05/20/18 05/20/18 21:51 22:00 22:20 WBC RBC Hgb Hct MCV MCH MCHC RDW Plt Count MPV Neut % (Auto) Lymph % (Auto) [place] % (Auto) Eos % (Auto) Baso % (Auto) Neut # (Auto) Lymph # (Auto) [place] # (Auto) Eos # (Auto) Baso # (Auto) PT INR APTT pO2 35 VBG pH 7.25 L VBG pCO2 42 VBG HCO3 17.2 VBG Total CO2 19.7 L VBG O2 Sat (Calc) 57.3 VBG Base Excess -8.5 L VBG Potassium 7.8 H* Glucose 155 H Lactate 1.9 Crit Value Called To Sapira Crit Value Called By Ga.rt Crit Value Read Back Y Blood Gas Notified Time 2207 Sodium 138.0 Potassium Chloride 101.0 Carbon Dioxide Anion Gap BUN Creatinine Est GFR ( Amer) Est GFR (Non-Af Amer) POC Glucose (mg/dL) 179 H Random Glucose Calcium Magnesium Total Bilirubin AST ALT Alkaline Phosphatase Troponin I NT-Pro-B Natriuret Pep 3020 H Total Protein Albumin Globulin Albumin/Globulin Ratio Lipase TSH 3rd Generation Venous Blood Potassium 7.8 H* Assessment & Plan (1) Acute renal failure Status: Acute (2) Hyperkalemia Status: Acute (3) Atrial fibrillation Status: Chronic (4) Thyroid goiter Status: Chronic (5) Dehydration Status: Acute
[2018-05-20] MEDS: Albuterol-Ipratrop 3 mg / 0.5 (3 ml) UD IH SCH ×3 (23:50→23:59)
[2018-05-21] MEDS ORDERED: Enoxaparin 80 mg Syringe ONE (00:16)
[2018-05-21] MEDS ORDERED: Enoxaparin 100 mg Syringe ONE (00:17)
[2018-05-21 00:30] LABS: SQUAMOUS EPITHIAL < 1 /hpf (0-5); URINE BILIRUBIN NEGATIVE (NEGATIVE); URINE BLOOD 3+ (NEGATIVE); URINE CLARITY Clear (Clear); URINE COLOR Straw (YELLOW); URINE GLUCOSE (UA) 2+ mg/dL (Normal); URINE LEUKOCYTE ESTERASE NEG Leu/uL (Negative); URINE PROTEIN 1+ mg/dL (NEGATIVE); URINE UROBILINOGEN NORMAL mg/dL (0.2-1.0)
--- NOTE | 2018-05-21 00:59 | CP.PCM.HP ---
<Saeid Martinez - Last Filed: 05/21/18 04:29> History of Present Illness - History of Present Illness History of Present Illness: PGY1 H&P for medicine hospitalist CC: AMS, shortness of breath This is an 87 year old Burmese female with PMH of HTN, new onset Afib, lung nodules, thyroid goiter who presents to ED with worsening SOB, confusion over the past 2 weeks. She is with granddaughter at bedside who is translating. Patient was admitted 04/28 and discharged 05/05 and treated for newly diagnosed Afib w/ RVR. Patient's family agreed w/ comfort care, to keep [place], possibly hospice. Patient's lack of insurance does not make her a hospice candidate. The decision was made to discharge her and if she is to have increasing symptoms, she is to return as inpatient for care. Patient's son signed POLST in chart; code status decided DNR/DNI. Granddaughter reports that patient has been worsening since discharge and has not been eating or taking medications for the past 4 days. She has been mostly laying in bed, and not her usual preadmission self. Grandaughter reports diarrhea and nausea. ROS unobtainable as pt has been confused for the past few days. Pt was found to be in renal failure and hyperkalemic at 8.7 in the ED. Pt received Duoneb x 3, Calclium gluconate, D50, insulin 10 units, kayexalate 30 gm PO x1, Sodium bicarb 50 meq IVP. Calhonu was placed with return of 2200 mL of urine, pt also received 40 mg IVP of lasix. ICU was consulted. Prior medical records were reviewed PMH: HTN, new onset Afib, lung nodules, thyroid goiter SxH: denies SocH: denies tobacco, etoh, or recreational drug use FamH: denies Meds: apixaban (eliquis) 2.5 mg PO BID, furosemide (lasix) 20 mg PO BID, methimazole (tapazole) 10 mg PO daily, propanolol (inderal) 20 mg PO TID Allergies: NKDA PMD: Beny Present on Admission - Present on Admission Any Indicators Present on Admission: No Review of Systems - Review of Systems Systems not reviewed;Unavailable: Altered Mental Status All systems: reviewed and no additional remarkable complaints except (as per HPI) Past Patient History - Infectious Disease Hx of Infectious Diseases: None - Past Medical History & Family History Past Medical History?: Yes - Past Social History Smoking Status: Never Smoked - CARDIAC Hx Hypertension: Yes - ENDOCRINE/METABOLIC Other/Comment: goiter - MUSCULOSKELETAL/RHEUMATOLOGICAL Hx Falls: No - PSYCHIATRIC Hx Substance Use: No - SURGICAL HISTORY Hx Surgeries: No - ANESTHESIA Hx Anesthesia: No Meds Allergies/Adverse Reactions: Allergies Allergy/AdvReac Type Severity Reaction Status Date / Time No Known Allergies Allergy Verified 04/28/18 10:06 Physical Exam - Constitutional Appears: In Acute Distress, Confused - Head Exam Head Exam: ATRAUMATIC, NORMAL INSPECTION - Eye Exam Eye Exam: Normal appearance Additional comments: arcus senilis - ENT Exam ENT Exam: Mucous Membranes Dry - Neck Exam Additional comments: (+) large anterior goiter - Respiratory Exam Respiratory Exam: Rhonchi (bilaterally) - Cardiovascular Exam Cardiovascular Exam: Tachycardia, Irregular Rhythm, REGULAR RHYTHM, +S1, +S2 - GI/Abdominal Exam GI & Abdominal Exam: Normal Bowel Sounds, Soft. absent: Distended, Firm, Tenderness Additional comments: (+) calhoun catheter with 2200+ mL of yellow urine - Extremities Exam Extremities exam: Positive for: pedal pulses present. Negative for: calf ten derness (left lower extremity is swollen when compared to the left) - Neurological Exam Neurological exam: Altered - Skin Skin Exam: Dry Additional comments: decreased skin turgor Results - Vital Signs Recent Vital Signs: Last Vital Signs Temp 98.0 F 05/20/18 21:36 Pulse 127 H 05/20/18 23:30 Resp 19 05/20/18 23:30 BP 156/99 H 05/21/18 00:38 Pulse Ox 96 05/21/18 00:27 - Labs Result Diagrams: 05/20/18 21:40 05/21/18 02:14 Labs: Laboratory Results - last 24 hr 05/20/18 05/20/18 05/20/18 21:40 21:40 21:40 WBC 17.2 H RBC 5.85 H Hgb 12.5 Hct 41.2 MCV 71.0 L MCH 21.3 L MCHC 30.0 L RDW 20.9 H Plt Count 154 MPV 9.0 Neut % (Auto) 86.1 H Lymph % (Auto) 10.7 L [place] % (Auto) 2.8 Eos % (Auto) 0.0 Baso % (Auto) 0.4 Neut # (Auto) 14.8 H Lymph # (Auto) 1.8 [place] # (Auto) 0.5 Eos # (Auto) 0.0 Baso # (Auto) 0.1 PT 13.4 H INR 1.2 APTT 31 pO2 VBG pH VBG pCO2 VBG HCO3 VBG Total CO2 VBG O2 Sat (Calc) VBG Base Excess VBG Potassium Glucose Lactate Crit Value Called To Crit Value Called By Crit Value Read Back Blood Gas Notified Time Sodium 139 Potassium 8.7 H* D Chloride 99 Carbon Dioxide 16 L Anion Gap 32 H BUN 187 H* D Creatinine 19.3 H* D Est GFR ( Amer) 2 Est GFR (Non-Af Amer) 2 POC Glucose (mg/dL) Random Glucose 164 H D Calcium 9.3 Magnesium 2.7 H Total Bilirubin 1.0 AST 30 ALT 8 L D Alkaline Phosphatase 87 Troponin I 0.0780 NT-Pro-B Natriuret Pep Total Protein 8.1 Albumin 4.2 Globulin 3.9 Albumin/Globulin Ratio 1.1 Lipase 507 H TSH 3rd Generation 0.28 L Venous Blood Potassium Urine Color Urine Clarity Urine pH Ur Specific [place] Urine Protein Urine Glucose (UA) Urine Ketones Urine Blood Urine Nitrate Urine Bilirubin Urine Urobilinogen Ur Leukocyte Esterase Urine WBC (Auto) Urine RBC (Auto) Ur Squamous Epith Cells 05/20/18 05/20/18 05/20/18 21:51 22:00 22:20 WBC RBC Hgb Hct MCV MCH MCHC RDW Plt Count MPV Neut % (Auto) Lymph % (Auto) [place] % (Auto) Eos % (Auto) Baso % (Auto) Neut # (Auto) Lymph # (Auto) [place] # (Auto) Eos # (Auto) Baso # (Auto) PT INR APTT pO2 35 VBG pH 7.25 L VBG pCO2 42 VBG HCO3 17.2 VBG Total CO2 19.7 L VBG O2 Sat (Calc) 57.3 VBG Base Excess -8.5 L VBG Potassium 7.8 H* Glucose 155 H Lactate 1.9 Crit Value Called To Sapira Crit Value Called By Ga.rt Crit Value Read Back Y Blood Gas Notified Time 2207 Sodium 138.0 Potassium Chloride 101.0 Carbon Dioxide Anion Gap BUN Creatinine Est GFR ( Amer) Est GFR (Non-Af Amer) POC Glucose (mg/dL) 179 H Random Glucose Calcium Magnesium Total Bilirubin AST ALT Alkaline Phosphatase Troponin I NT-Pro-B Natriuret Pep 3020 H Total Protein Albumin Globulin Albumin/Globulin Ratio Lipase TSH 3rd Generation Venous Blood Potassium 7.8 H* Urine Color Urine Clarity Urine pH Ur Specific [place] Urine Protein Urine Glucose (UA) Urine Ketones Urine Blood Urine Nitrate Urine Bilirubin Urine Urobilinogen Ur Leukocyte Esterase Urine WBC (Auto) Urine RBC (Auto) Ur Squamous Epith Cells 05/21/18 00:13 WBC RBC Hgb Hct MCV MCH MCHC RDW Plt Count MPV Neut % (Auto) Lymph % (Auto) [place] % (Auto) Eos % (Auto) Baso % (Auto) Neut # (Auto) Lymph # (Auto) [place] # (Auto) Eos # (Auto) Baso # (Auto) PT INR APTT pO2 VBG pH VBG pCO2 VBG HCO3 VBG Total CO2 VBG O2 Sat (Calc) VBG Base Excess VBG Potassium Glucose Lactate Crit Value Called To Crit Value Called By Crit Value Read Back Blood Gas Notified Time Sodium Potassium Chloride Carbon Dioxide Anion Gap BUN Creatinine Est GFR ( Amer) Est GFR (Non-Af Amer) POC Glucose (mg/dL) Random Glucose Calcium Magnesium Total Bilirubin AST ALT Alkaline Phosphatase Troponin I NT-Pro-B Natriuret Pep Total Protein Albumin Globulin Albumin/Globulin Ratio Lipase TSH 3rd Generation Venous Blood Potassium Urine Color Straw Urine Clarity Clear Urine pH 6.0 Ur Specific [place] 1.010 Urine Protein 1+ H Urine Glucose (UA) 2+ H Urine Ketones Negative Urine Blood 3+ H Urine Nitrate Negative Urine Bilirubin Negative Urine Urobilinogen Normal Ur Leukocyte Esterase Neg Urine WBC (Auto) 17 H Urine RBC (Auto) 43 H Ur Squamous Epith Cells < 1 Assessment & Plan - Assessment and Plan (Free Text) Assessment: This is an 87 year old Burmese female with PMH of HTN, new onset Afib, lung nodules, thyroid goiter who presents to ED with worsening SOB, confusion over the past 2 weeks. Pt was found to be in renal failure and hyperkalemic at 8.7 in the ED. Pt received Duoneb x 3, Calclium gluconate, D50, insulin 10 units, kayexalate 30 gm PO x1, Sodium bicarb 50 meq IVP. Calhoun was placed with return of 2200 mL of urine, pt also received 40 mg IVP of lasix. ICU was consulted, but telemetry admission was recommended. Plan: Acute renal failure, possible obstructive in nature Creatinine 19.3 on admission, repeat BMP shows some improvement to 16.7 2200mL of yellow urine expressed after calhoun catheter was placed NS IV 1L bolus, followed by NS IVF at 150 mL/hr Measure I's and Os Nephrology, Dr. Varner, consulted. Recommendations appreciated. Avoid nephrotoxic medications wherever possible Hyperkalemia EKG shows peaked t waves and QTc prolongation at 519 hyperkalemic at 8.7 on admission. Pt received Duoneb x 3, Calcium gluconate, D50, insulin 10 units, kayexalate 30 gm PO x1, Sodium bicarb 50 meq IVP. Repeat BMP shows potassium of 6.9 Will treat with calcium gluconate 1 amp, sodium bicarb 1 amp, Albuterol INH, kayexalate 30 mg PO x1 F/u EKG Altered mental status Uremia may be contributing to pt's mental status F/u Head CT without contrast Leukocytosis 17.2 on admission, elevated from 13.5 on 05/05/18 discharge Pt afebrile, but tachycardic F/u blood cultures Left lower extremity swelling F/u bilateral lower extremity dopplers Will consider Heparin gtt, or restarting eliquis if positive Thyroid Goiter TSH 0.28 on admission Continue Propanolol 20 mg PO TID, Methimazole 10 mg PO QD F/u T4/T3 Hx of Atrial fibrillation SR at 109 LBBB, peaked T waves with QTc of 519; no sttw changes; as per ED physician Hold eliquis for now, pending head CT Hx of hypertension Pt is currently normotensive Received lasix 40 mg IVP in the ED Will re-evaluate need for antihypertensive in am GI ppx: protonix 40 mg IVP daily VTE ppx: Pt received Lovenox 75 mg SC in the ED Pt is DNR/DNI with POLST form signed on prior admission (in [facility]). Case was discussed with granddaughter, who spoke with her father (who signed the POLST form), and there was no decision made to change DNR/DNI status. Pt placed on DNR/DNI. Case was reviewed and discussed with attending physician, Dr. Rachel Martinez PGY1 <John Ramos - Last Filed: 05/21/18 05:34> Results - Vital Signs Recent Vital Signs: Last Vital Signs Temp 98.0 F 05/20/18 21:36 Pulse 130 H 05/21/18 03:50 Resp 19 05/21/18 03:50 BP 122/77 05/21/18 03:50 Pulse Ox 100 05/21/18 03:50 - Labs Result Diagrams: 05/20/18 21:40 05/21/18 02:14 Labs: Laboratory Results - last 24 hr 05/20/18 05/20/18 05/20/18 21:40 21:40 21:40 WBC 17.2 H RBC 5.85 H Hgb 12.5 Hct 41.2 MCV 71.0 L MCH 21.3 L MCHC 30.0 L RDW 20.9 H Plt Count 154 MPV 9.0 Neut % (Auto) 86.1 H Lymph % (Auto) 10.7 L [place] % (Auto) 2.8 Eos % (Auto) 0.0 Baso % (Auto) 0.4 Neut # (Auto) 14.8 H Lymph # (Auto) 1.8 [place] # (Auto) 0.5 Eos # (Auto) 0.0 Baso # (Auto) 0.1 PT 13.4 H INR 1.2 APTT 31 pO2 VBG pH VBG pCO2 VBG HCO3 VBG Total CO2 VBG O2 Sat (Calc) VBG Base Excess VBG Potassium Glucose Lactate Crit Value Called To Crit Value Called By Crit Value Read Back Blood Gas Notified Time Sodium Potassium Chloride Carbon Dioxide Anion Gap BUN Creatinine Est GFR ( Amer) Est GFR (Non-Af Amer) POC Glucose (mg/dL) Random Glucose Calcium Magnesium Total Bilirubin AST ALT Alkaline Phosphatase Troponin I NT-Pro-B Natriuret Pep Total Protein Albumin Globulin Albumin/Globulin Ratio Lipase TSH 3rd Generation Venous Blood Potassium Urine Color Urine Clarity Urine pH Ur Specific [place] Urine Protein Urine Glucose (UA) Urine Ketones Urine Blood Urine Nitrate Urine Bilirubin Urine Urobilinogen Ur Leukocyte Esterase Urine WBC (Auto) Urine RBC (Auto) Ur Squamous Epith Cells Influenza Typ A,B (EIA) Negative for flu a/b 05/20/18 05/20/18 05/20/18 21:40 21:51 22:00 WBC RBC Hgb Hct MCV MCH MCHC RDW Plt Count MPV Neut % (Auto) Lymph % (Auto) [place] % (Auto) Eos % (Auto) Baso % (Auto) Neut # (Auto) Lymph # (Auto) [place] # (Auto) Eos # (Auto) Baso # (Auto) PT INR APTT pO2 35 VBG pH 7.25 L VBG pCO2 42 VBG HCO3 17.2 VBG Total CO2 19.7 L VBG O2 Sat (Calc) 57.3 VBG Base Excess -8.5 L VBG Potassium 7.8 H* Glucose 155 H Lactate 1.9 Crit Value Called To Sapira Crit Value Called By Ga.rt Crit Value Read Back Y Blood Gas Notified Time 2207 Sodium 139 138.0 Potassium 8.7 H* D Chloride 99 101.0 Carbon Dioxide 16 L Anion Gap 32 H BUN 187 H* D Creatinine 19.3 H* D Est GFR ( Amer) 2 Est GFR (Non-Af Amer) 2 POC Glucose (mg/dL) 179 H Random Glucose 164 H D Calcium 9.3 Magnesium 2.7 H Total Bilirubin 1.0 AST 30 ALT 8 L D Alkaline Phosphatase 87 Troponin I 0.0780 NT-Pro-B Natriuret Pep Total Protein 8.1 Albumin 4.2 Globulin 3.9 Albumin/Globulin Ratio 1.1 Lipase 507 H TSH 3rd Generation 0.28 L Venous Blood Potassium 7.8 H* Urine Color Urine Clarity Urine pH Ur Specific [place] Urine Protein Urine Glucose (UA) Urine Ketones Urine Blood Urine Nitrate Urine Bilirubin Urine Urobilinogen Ur Leukocyte Esterase Urine WBC (Auto) Urine RBC (Auto) Ur Squamous Epith Cells Influenza Typ A,B (EIA) 05/20/18 05/21/18 05/21/18 22:20 00:13 02:14 WBC RBC Hgb Hct MCV MCH MCHC RDW Plt Count MPV Neut % (Auto) Lymph % (Auto) [place] % (Auto) Eos % (Auto) Baso % (Auto) Neut # (Auto) Lymph # (Auto) [place] # (Auto) Eos # (Auto) Baso # (Auto) PT INR APTT pO2 VBG pH VBG pCO2 VBG HCO3 VBG Total CO2 VBG O2 Sat (Calc) VBG Base Excess VBG Potassium Glucose Lactate Crit Value Called To Crit Value Called By Crit Value Read Back Blood Gas Notified Time Sodium 142 Potassium 6.9 H* D Chloride 105 Carbon Dioxide 18 L Anion Gap 26 H BUN 173 H* Creatinine 16.7 H* Est GFR ( Amer) 2 Est GFR (Non-Af Amer) 2 POC Glucose (mg/dL) Random Glucose 140 H Calcium 8.8 Magnesium Total Bilirubin AST ALT Alkaline Phosphatase Troponin I NT-Pro-B Natriuret Pep 3020 H Total Protein Albumin Globulin Albumin/Globulin Ratio Lipase TSH 3rd Generation Venous Blood Potassium Urine Color Straw Urine Clarity Clear Urine pH 6.0 Ur Specific [place] 1.010 Urine Protein 1+ H Urine Glucose (UA) 2+ H Urine Ketones Negative Urine Blood 3+ H Urine Nitrate Negative Urine Bilirubin Negative Urine Urobilinogen Normal Ur Leukocyte Esterase Neg Urine WBC (Auto) 17 H Urine RBC (Auto) 43 H Ur Squamous Epith Cells < 1 Influenza Typ A,B (EIA) Assessment & Plan - Date & Time Date: 05/21/18 (I have seen and examined the patient. I agree with the findings and plan of care as documented by Dr. Martinez. Patient with acute renal failure. Hyperkalemia. IVF NS. Dehydrated. Received Kayexylate. Albuterol. Follow Potassium levels. Altered mental status. CT head. Swelling of lower extremities. History of A fib. Has not taken Elliquis in more than 3 days. H eparin. Lovenox received in ED but changed due to renal failure. Lower extremity dopplers. Monitor for acute changes.) Time: 05:32 Attending/Attestation - Attestation I have personally seen and examined this patient.: Yes I have fully participated in the care of the patient.: Yes I have reviewed all pertinent clinical information: Yes
[2018-05-21 03:06] LABS: CALCIUM 8.8 mg/dl (8.6-10.4)
[2018-05-21] MEDS ORDERED: Calcium Gluconate 4.65 mEq/10 ml Inj IVP ONE (03:35)
[2018-05-21] MEDS ORDERED: Sodium Chloride 0.9% 1,000 ML IV ONE (03:35)
[2018-05-21] MEDS ORDERED: Sodium Bicarbonate (8.4%) 50 Meq Syringe IVP STA (03:36)
[2018-05-21] MEDS ORDERED: Albuterol 0.083% Inhal Sol (2.5 mg/3 mL) UD INH STA (03:39)
[2018-05-21] MEDS ORDERED: Sodium Chloride 0.9% 1,000 ML IV SCH (03:45)
[2018-05-21] MEDS ORDERED: Heparin25000 units/250ml 1/2NS 25,000 UNITS/250 ML BAG IV SCH (04:00)
[2018-05-21] MEDS ORDERED: Albuterol-Ipratrop 3 mg / 0.5 (3 ml) UD ONE (04:23)
[2018-05-21] MEDS ORDERED: Sodium Bicarbonate (8.4%) 50 Meq Syringe ONE (04:24)
[2018-05-21] MEDS ORDERED: Calcium Gluconate 4.65 mEq/10 ml Inj ONE (04:24)
--- NOTE | 2018-05-21 07:14 | CP.PCM.PN ---
<Kellen Farrar - Last Filed: 05/21/18 14:01> Subjective - Date & Time of Evaluation Date of Evaluation: 05/21/18 Time of Evaluation: 07:14 - Subjective Subjective: PGY1 Progress Note for Dr Tapia Patient was seen and evaluated at bedside this morning. Patient was non-verbal during examination, however she is responsive to pain and opens her eyes to name. Patient was tachycardic in the 140's this morning. EKG was ordered. Complete ROS could not be obtained due to clinical condition. Patient's family member was at bedside this morning. Hospice was recommended given the Patient's deteriorating clinical condition secondary to her chronic conditions and severity of intracranial disease. Patient's family member agreed. Objective - Vital Signs/Intake and Output Vital Signs (last 24 hours): Temp Pulse Resp BP Pulse Ox 98.6 F 130 H 10 L 148/95 H 98 05/21/18 04:00 05/21/18 04:00 05/21/18 04:00 05/21/18 04:00 05/21/18 04:00 Intake and Output: 05/21/18 05/21/18 06:59 18:59 Output Total 5000 Balance -5000 - Medications Medications: Current Medications Sodium Chloride (Sodium Chloride 0.9%) 1,000 mls @ 150 mls/hr IV .Q6H40M [facility] Last Admin: 05/21/18 04:25 Dose: 150 mls/hr Heparin Sodium/Sodium Chloride (Heparin 35982 Units/250ml 1/2 Normal Saline) 25,000 units in 250 mls @ 0 mls/hr IV .Q0M [facility]; Protocol Methimazole (Tapazole) 10 mg PO DAILY [facility] Pantoprazole Sodium (Protonix Inj) 40 mg IVP DAILY [facility] Propranolol HCl (Inderal) 20 mg PO TID [facility] Sodium Polystyrene Sulfonate (Kayexalate) 30 gm PO ONCE ONE Stop: 05/21/18 10:01 - Labs Labs: 05/20/18 21:40 05/21/18 02:14 PT 13.4 SECONDS (9.7-12.2) H 05/20/18 21:40 INR 1.2 05/20/18 21:40 APTT 31 SECONDS (21-34) 05/20/18 21:40 - Additional Findings Additional findings: - Constitutional Appears: In Acute Distress, Confused - Head Exam Head Exam: ATRAUMATIC, NORMAL INSPECTION - Eye Exam Eye Exam: Normal appearance Additional comments: arcus senilis - ENT Exam ENT Exam: Mucous Membranes Dry - Neck Exam Additional comments: (+) large anterior goiter - Respiratory Exam Respiratory Exam: Rhonchi (bilaterally) - Cardiovascular Exam Cardiovascular Exam: Tachycardia, Irregular Rhythm, REGULAR RHYTHM, +S1, +S2 - GI/Abdominal Exam GI & Abdominal Exam: Normal Bowel Sounds, Soft. absent: Distended, Firm, Tenderness Additional comments: (+) Fermin catheter with 2200+ mL of yellow urine - Extremities Exam Extremities exam: Positive for: pedal pulses present. Negative for: calf tenderness (left lower extremity is swollen when compared to the left) - Neurological Exam Neurological exam: Altered - Skin Skin Exam: Dry Additional comments: decreased skin turgor Assessment and Plan - Assessment and Plan (Free Text) Assessment: This is an 87 year old [place] female with PMH of HTN, new onset A-fib, lung nodules, thyroid goiter who presents to ED with worsening SOB, confusion over the past 2 weeks. Pt was found to be in renal failure and hyperkalemic at 8.7 in the ED. Pt received Duoneb x 3, Calclium gluconate, D50, insulin 10 units, kayexalate 30 gm PO x1, Sodium bicarb 50 meq IVP. Fermin was placed with return o f 2200 mL of urine, pt also received 40 mg IVP of lasix. Prelim head CT reviewed: Patient with frontal subarachnoid hemorrhage. Neurosurgery consulted stat. ICU, Dr. Sarmiento, aware. Patient is being transferred to Telemetry. Patientt is normotensive. All anticoagulation stopped. Patient with bouts of tachycardia 05/21 Patient is DNR/DNI with POLST form signed on prior admission (in [employer]). Case was discussed with granddaughter, who spoke with her father (who signed the POLST form), and there was no decision made to change DNR/DNI status. Patient placed on DNR/DNI. All therapeutic medications currently held, as Patient is pending hospice approval. Patient currently on ativan IVP PRN and morphine drip. Plan: Altered Mental Status Likely Secondary to Subarachnoid Hemorrhage - CT without contrast: New focal hemorrhage noted within the left superior frontal subarachnoid space with some possible extension into the adjacent left frontal parenchyma cortical parenchyma measuring approx 2.1 x 1.1 x 3.1cm. Some mild adjacent edema within the cortical parenchyma. Please see complete report for details. - Per Patient's wishes, per Family, Patient is being evaluated for hospice care. - All therapeutic medications currently held, as Patient is pending hospice approval. Patient currently on ativan IVP PRN and morphine drip. Acute renal failure, possible obstructive in nature - Creatinine 19.3 on admission, today Cr=16.7 - Discontinued: NS IVF at 150 mL/hr - Monitor I's and Os - Nephrology, Dr. Varner, consulted. Recommendations appreciated. - Avoid nephrotoxic medications Hyperkalemia, K+=6.9 - EKG shows peaked t waves and QTc prolongation at 519 - Hyperkalemic at 8.7 on admission. Patient received Duoneb x 3, Calcium gluconate, D50, insulin 10 units, kayexalate 30 gm PO x1, Sodium bicarb 50 meq IVP. - Repeat BMP shows potassium of 6.9 - EKG repeated Leukocytosis - 17.2 on admission, elevated from 13.5 on 05/05/18 discharge - Patient afebrile, but tachycardic - F/U blood cultures Left lower extremity swelling - F/u bilateral lower extremity dopplers - Discontinued all anticoagulation due to subarachnoid hemorrhage Thyroid Goiter - TSH 0.28 on admission - Discontinue: Propanolol 20 mg PO TID, Methimazole 10 mg PO QD - T4=4.67 (low) Free T4=1.32 Total T3 pending Hx of Atrial fibrillation - SR at 109 LBBB, peaked T waves with QTc of 519; no sttw changes; as per ED physician - Eliquis held due to bleeding Hx of hypertension - Patient is currently normotensive - Received lasix 40 mg IVP in the ED Prophylaxis - GI ppx: Discontinued - VTE ppx: contraindicated Patient seen and case discussed in detail with Dr. Tapia <Crista Tapia - Last Filed: 05/21/18 16:30> Objective - Vital Signs/Intake and Output Vital Signs (last 24 hours): Temp Pulse Resp BP Pulse Ox 97.6 F 146 H 15 100/60 90 L 05/21/18 07:00 05/21/18 07:00 05/21/18 07:00 05/21/18 07:00 05/21/18 07:00 Intake and Output: 05/21/18 05/21/18 06:59 18:59 Output Total 5000 Balance -5000 - Medications Medications: Current Medications Morphine Sulfate 250 mg/ (Sodium Chloride) 250 mls @ 2 mls/hr IV .Q24H PRN; Protocol PRN Reason: Agitation Lorazepam (Ativan) 1 mg IVP Q6H PRN PRN Reason: Agitation Sodium Polystyrene Sulfonate (Kayexalate) 30 gm PO ONCE ONE Stop: 05/21/18 10:01 - Labs Labs: 05/20/18 21:40 05/21/18 07:07 PT 13.4 SECONDS (9.7-12.2) H 05/20/18 21:40 INR 1.2 05/20/18 21:40 APTT 31 SECONDS (21-34) 05/20/18 21:40 Attending/Attestation - Attestation I have personally seen and examined this patient.: Yes I have fully participated in the care of the patient.: Yes I have reviewed all pertinent clinical information, including history, physical exam and plan: Yes Notes (Text): Lethargic,but arousable,pupils react to light sluggish/equal tachycardia and hypotensive She is a 87 yrs old lady with history of dementia,hyperthyroidism,large goiter,afib and lung mass known to me from previous admission brought to ER by her family for AMS,poor appetite and epigastric pain. patient is in acute renal failure and has subarchnoid bleeding.She was on Eliquis Patient's prognosis is poor. Her family decided for more comfort care her during last admission. I spoke to the patient's daughter in Law (Tali) with translation service at bedside .Her son is sleeping after night work and he will be here in the afternoon .As per daughter in law the Patient lives with her and agrees for hospice care to make her comfortable. Update-I spoke to the patient's Granddaughter Bhavana who speaks Swedish. Explained about poor prognosis. Answered all medical questions. She was told about stopping tests and fluids,continue morphine drip to help for her pain and agitation. continue oxygen.She agrees to speak to the patient's son and agree to continue Morphine
[2018-05-21 08:07] LABS: T4 4.67 ug/dL (5.5-11.0)
--- NOTE | 2018-05-21 08:21 | CT ---
Date of service: 05/21/2018 PROCEDURE: CT HEAD WITHOUT CONTRAST. HISTORY: confusion COMPARISON: CT dated 05/01/2018 TECHNIQUE: Axial computed tomography images were obtained through the head/brain without intravenous contrast. Radiation dose: Total exam DLP = 942.42 mGy-cm. This CT exam was performed using one or more of the following dose reduction techniques: Automated exposure control, adjustment of the mA and/or kV according to patient size, and/or use of iterative reconstruction technique. FINDINGS: HEMORRHAGE: New focal hemorrhage noted within the left superior frontal subarachnoid space with some possible extension into the adjacent left frontal parenchyma cortical parenchyma measuring approximately 2.1 by 1.1 by 3.1 centimeters best seen on series 4 images 48 through 57. Some mild adjacent edema within the cortical parenchyma. Further evaluation with MRI may be helpful if clinically indicated. BRAIN: Diffuse generalized parenchymal atrophy. Scattered focal lucencies in the subcortical and periventricular white matter suggestive for chronic microvascular ischemic change. . VENTRICLES: Unremarkable. No hydrocephalus. CALVARIUM: Patchy hypodensity seen within the midline posterior occipital cranium. PARANASAL SINUSES: Unremarkable as visualized. No significant inflammatory changes. MASTOID AIR CELLS: Unremarkable as visualized. No inflammatory changes. OTHER FINDINGS: Prominent intracranial arterial calcifications for example at the level of the suprasellar cistern series 4, image 27. Correlation with MRA and/or CTA would be helpful for further evaluation as well as to exclude any aneurysmal dilatation. Limited evaluation of the posterior fossa given streak artifact. Some hypodensities noted at the level the pontine medullary junction may be related to artifact. Clinical correlation. Correlation with MRI may be helpful clinically indicated. IMPRESSION: 1. New focal hemorrhage noted within the left superior frontal subarachnoid space with some possible extension into the adjacent left frontal parenchyma cortical parenchyma measuring approximately 2.1 by 1.1 by 3.1 centimeters best seen on series 4 images 48 through 57. Some mild adjacent edema within the cortical parenchyma. Further evaluation with MRI may be helpful if clinically indicated. 2. Prominent intracranial arterial calcifications for example at the level of the suprasellar cistern series 4, image 27. Correlation with MRA and/or CTA would be helpful for further evaluation as well as to exclude any aneurysmal dilatation. 3. Limited evaluation of the posterior fossa given streak artifact. Some hypodensities noted at the level the pontine medullary junction may be related to artifact. Clinical correlation. Correlation with MRI may be helpful clinically indicated. 4. Diffuse generalized parenchymal atrophy. 5. Chronic microvascular ischemic change. A preliminary report was generated at 5:21 a.m. on 05/21/[address] Chelo Tavarez from [facility] rad.
[2018-05-21 09:07] LABS: CALCIUM 7.5 mg/dl (8.6-10.4); T3 1.1 nmol/L (1.49-2.60)
[2018-05-21] MEDS ORDERED: Enoxaparin 80 mg Syringe SC SCH (10:00)
--- NOTE | 2018-05-21 10:56 | RAD ---
Chest x-ray single frontal view HISTORY: Shortness of breath. COMPARISON: 04/28/2018 Findings: Numerous coarse calcifications evident in the soft tissues of the right neck and bilateral axilla. Additionally calcifications are noted in the right lower neck/lung apex and right mediastinum. Right paratracheal mass is not excluded. Correlation with chest CT may be helpful if clinically indicated. Biapical pleural thickening with upper lobe granulomatous changes. Bilateral hilar prominence. Small left pleural effusion. Scattered nodular changes in both lungs. Venous congestion. Atherosclerotic calcification at the aortic knob. Cardiomegaly. Degenerative changes in the spine and shoulders. Impression: Numerous coarse calcifications evident in the soft tissues of the right neck and bilateral axilla. Additionally calcifications are noted in the right lower neck/lung apex and right mediastinum. Right paratracheal mass is not excluded. Correlation with chest CT may be helpful if clinically indicated. Biapical pleural thickening with upper lobe granulomatous changes. Bilateral hilar prominence. Small left pleural effusion. Scattered nodular changes in both lungs. Venous congestion. Atherosclerotic calcification at the aortic knob. Cardiomegaly.
--- NOTE | 2018-05-21 14:14 | CARD ---
APPROVED REPORT Date of service: 05/20/2018 EKG Measurement Heart [id number] <Conclusion> Sinus tachycardia with short VA Left axis deviation Left bundle branch block Abnormal ECG
--- NOTE | 2018-05-22 07:46 | CP.PCM.PN ---
Subjective - Date & Time of Evaluation Date of Evaluation: 05/22/18 Time of Evaluation: 16:39 - Subjective Subjective: PGY-1 Medicine Progress Note for Dr. Tapia' service S/E at bedside. Severely ill, on morphine drip. ROS limited. Family at bedside. Hospice eval pending. Objective - Vital Signs/Intake and Output Vital Signs (last 24 hours): Temp Pulse Resp BP Pulse Ox 96.8 F L 121 H 12 87/51 L 99 05/22/18 04:00 05/22/18 04:00 05/22/18 04:00 05/22/18 04:00 05/22/18 04:00 Intake and Output: 05/22/18 05/22/18 06:59 18:59 Intake Total 10 Balance 10 - Medications Medications: Current Medications Morphine Sulfate 250 mg/ (Sodium Chloride) 250 mls @ 2 mls/hr IV .Q24H PRN; Protocol PRN Reason: Agitation Last Admin: 05/21/18 13:36 Dose: 2 mls/hr, 2 mls/hr Lorazepam (Ativan) 1 mg IVP Q6H PRN PRN Reason: Agitation - Labs Labs: 05/20/18 21:40 05/21/18 07:07 PT 13.4 SECONDS (9.7-12.2) H 05/20/18 21:40 INR 1.2 05/20/18 21:40 APTT 31 SECONDS (21-34) 05/20/18 21:40 - Constitutional Appears: Toxic, Chronically Ill - Head Exam Head Exam: NORMAL INSPECTION, NORMOCEPHALIC - Eye Exam Additional comments: deferred - ENT Exam ENT Exam: Mucous Membranes Dry - Neck Exam Additional comments: large goiter noted - Respiratory Exam Respiratory Exam: Rhonchi - Cardiovascular Exam Cardiovascular Exam: Tachycardia, +S1, +S2 - GI/Abdominal Exam GI & Abdominal Exam: Soft, Normal Bowel Sounds. absent: Distended, Firm, Tenderness Additional comments: calhoun in place - Extremities Exam Extremities Exam: Normal Inspection - Neurological Exam Neurological Exam: absent: Alert, Awake, Oriented x3 - Skin Skin Exam: Dry, Intact Assessment and Plan - Assessment and Plan (Free Text) Assessment: This is an 87 year old [place] female with PMH of HTN, new onset A-fib, lung nodules, thyroid goiter who presents to ED with worsening SOB, confusion over the past 2 weeks. Pt was found to be in renal failure and hyperkalemic at 8.7 in the ED. Pt received Duoneb x 3, Calclium gluconate, D50, insulin 10 units, kayexalate 30 gm PO x1, Sodium bicarb 50 meq IVP. Calhoun was placed with return of 2200 mL of urine, pt also received 40 mg IVP of lasix. Prelim head CT reviewed: Patient with frontal subarachnoid hemorrhage. Neurosurgery consulted stat. ICU, Dr. Sarmiento, aware. Patient is being transferred to Telemetry. All anticoagulation stopped. Patient with bouts of tachycardia 05/21 1) AMS patient has dementia Hospice eval pending CT without contrast: New focal hemorrhage noted within the left superior frontal subarachnoid space with some possible extension into the adjacent left frontal parenchyma cortical parenchyma measuring approx 2.1 x 1.1 x 3.1cm. Some mild adjacent edema within the cortical parenchyma. Please see complete report for details. 2)Acute renal failure 3)Hyperkalemia, K+=6.9 4)Leukocytosis 5)Left lower extremity swelling 6)Thyroid Goiter 7)Hx of Atrial fibrillation 8)Hx of hypertension All medical management for any medical conditions is stopped. Patient is pending evaluation for hospice care. Above listed is medical conditions that are currently no longer being treated Patient is well known to medical team. Patient has been admitted prior with lung mass and thyroid nodules. During last admission, family decided that they did not want aggressive diagnosis of primary cancer and wanted mostly symptomatic treatment/comfort care. Patient was made DNR/DNI with palliative care w/POLST documentation. CT of head showed that patient had focal hemorrhage. Goal is for hospice evaluation later today. Pending further management as per hospice and family wishes PGY-1 Nina Kirby Case d/w Dr. Tapia
[2018-05-22 08:24] VITALS: BP 75/47; PULSE 122; RESP 8; TEMP 96.4; O2SAT 98
--- NOTE | 2018-05-22 20:12 | CP.PCM.PRO ---
Pronouncement of Note - Clinical Findings Physical Exam: No Response Verbal/Painful Stimuli, Absent Peripheral Puls es{Carotid & Femoral}, Absent Heart & Breath Sounds, No Pupillary Light Reflex, No Corneal Reflex, Pupils Fixed & Dilated, Absence of Vital Signs - Pronouncement Time Time of Pronouncement of : 07:57 Additional Comments: pt on hospice care - Notifications Pronouncement Notifications: Family Notified, Atending Notified Investment Counselor Notified: [place] - [place] [id number]
--- NOTE | 2018-05-22 20:46 | CP.PCM.DIS ---
<Saeid Martinez - Last Filed: 05/22/18 21:46> Provider - Provider Date of Admission: 05/20/18 23:24 Attending physician: John Ramos MD Consults: 05/21/18 10:16 Social Work Referral Routine Comment: HOSPICE EVAL Physician Instructions: Reason For Exam: DNR DNI Time Spent in preparation of Discharge (in minutes): 30 Hospital Course - Lab Results Lab Results: Micro Results 05/21/18 05:52 Nose MRSA Culture (Admit) - Final MRSA NOT DETECTED 05/20/18 20:14 Blood Blood Culture - Preliminary NO GROWTH AFTER 24 HOURS 05/20/18 21:40 Blood Blood Culture - Preliminary NO GROWTH AFTER 24 HOURS Most Recent Lab Values WBC 17.2 K/uL (4.8-10.8) H 05/20/18 21:40 RBC 5.85 Mil/uL (3.80-5.20) H 05/20/18 21:40 Hgb 12.5 g/dL (11.0-16.0) 05/20/18 21:40 Hct 41.2 % (34.0-47.0) 05/20/18 21:40 MCV 71.0 fL (81.0-99.0) L 05/20/18 21:40 MCH 21.3 pg (27.0-31.0) L 05/20/18 21:40 MCHC 30.0 g/dL (33.0-37.0) L 05/20/18 21:40 RDW 20.9 % (11.5-14.5) H 05/20/18 21:40 Plt Count 154 K/uL (130-400) 05/20/18 21:40 MPV 9.0 fL (7.2-11.7) 05/20/18 21:40 Neut % (Auto) 86.1 % (50.0-75.0) H 05/20/18 21:40 Lymph % (Auto) 10.7 % (20.0-40.0) L 05/20/18 21:40 [place] % (Auto) 2.8 % (0.0-10.0) 05/20/18 21:40 Eos % (Auto) 0.0 % (0.0-4.0) 05/20/18 21:40 Baso % (Auto) 0.4 % (0.0-2.0) 05/20/18 21:40 Neut # (Auto) 14.8 K/uL (1.8-7.0) H 05/20/18 21:40 Lymph # (Auto) 1.8 K/uL (1.0-4.3) 05/20/18 21:40 [place] # (Auto) 0.5 K/uL (0.0-0.8) 05/20/18 21:40 Eos # (Auto) 0.0 K/uL (0.0-0.7) 05/20/18 21:40 Baso # (Auto) 0.1 K/uL (0.0-0.2) 05/20/18 21:40 PT 13.4 SECONDS (9.7-12.2) H 05/20/18 21:40 INR 1.2 05/20/18 21:40 APTT 31 SECONDS (21-34) 05/20/18 21:40 pO2 35 mm/Hg (30-55) 05/20/18 22:00 VBG pH 7.25 (7.32-7.43) L 05/20/18 22:00 VBG pCO2 42 mmHg (40-60) 05/20/18 22:00 VBG HCO3 17.2 mmol/L 05/20/18 22:00 VBG Total CO2 19.7 mmol/L (22-28) L 05/20/18 22:00 VBG O2 Sat (Calc) 57.3 % (40-65) 05/20/18 22:00 VBG Base Excess -8.5 mmol/L (0.0-2.0) L 05/20/18 22:00 VBG Potassium 7.8 mmol/L (3.6-5.2) H* 05/20/18 22:00 Sodium 138.0 mmol/l (132-148) 05/20/18 22:00 Chloride 101.0 mmol/L (98-107) 05/20/18 22:00 Glucose 155 mg/dl (65-105) H 05/20/18 22:00 Lactate 1.9 mmol/L (0.7-2.1) 05/20/18 22:00 Crit Value Called To Raffy 05/20/18 22:00 Crit Value Called By rt 05/20/18 22:00 Crit Value Read Back Y 05/20/18 22:00 Blood Gas Notified Time 220605/20/18 22:00 Sodium 148 mmol/L (132-148) 05/21/18 07:07 Potassium 4.3 mmol/L (3.6-5.2) 05/21/18 07:07 Chloride 113 mmol/L (98-107) H 05/21/18 07:07 Carbon Dioxide 22 mmol/L (22-30) 05/21/18 07:07 Anion Gap 17 (10-20) 05/21/18 07:07 BUN 133 mg/dL (7-17) H* D 05/21/18 07:07 Creatinine 10.5 mg/dL (0.7-1.2) H* D 05/21/18 07:07 Est GFR ( Amer) 4 05/21/18 07:07 Est GFR (Non-Af Amer) 3 05/21/18 07:07 POC Glucose (mg/dL) 179 mg/dL (65-110) H 05/20/18 21:51 Random Glucose 104 mg/dL (65-105) D 05/21/18 07:07 Calcium 7.5 mg/dl (8.6-10.4) L 05/21/18 07:07 Magnesium 2.7 mg/dL (1.6-2.3) H 05/20/18 21:40 Total Bilirubin 1.0 mg/dL (0.2-1.3) 05/20/18 21:40 AST 30 U/L (14-36) 05/20/18 21:40 ALT 8 U/L (9-52) L D 05/20/18 21:40 Alkaline Phosphatase 87 U/L (38-126) 05/20/18 21:40 Troponin I 0.0780 ng/mL (0.00-0.120) 05/20/18 21:40 NT-Pro-B Natriuret Pep 3020 pg/mL (0-900) H 05/20/18 22:20 Total Protein 8.1 g/dL (6.3-8.3) 05/20/18 21:40 Albumin 4.2 g/dL (3.5-5.0) 05/20/18 21:40 Globulin 3.9 gm/dL (2.2-3.9) 05/20/18 21:40 Albumin/Globulin Ratio 1.1 (1.0-2.1) 05/20/18 21:40 Lipase 507 U/L (23-300) H 05/20/18 21:40 Free T4 1.32 ng/dL (0.78-2.19) 05/21/18 07:07 Thyroxine (T4) 4.67 ug/dL (5.5-11.0) L 05/21/18 07:07 Total T3 1.10 nmol/L (1.49-2.60) L 05/21/18 07:07 TSH 3rd Generation 0.28 mIU/L (0.46-4.68) L 05/20/18 21:40 Venous Blood Potassium 7.8 mmol/L (3.6-5.2) H* 05/20/18 22:00 Urine Color Straw (YELLOW) 05/21/18 00:13 Urine Clarity Clear (Clear) 05/21/18 00:13 Urine pH 6.0 (5.0-8.0) 05/21/18 00:13 Ur Specific [place] 1.010 (1.003-1.030) 05/21/18 00:13 Urine Protein 1+ mg/dL (NEGATIVE) H 05/21/18 00:13 Urine Glucose (UA) 2+ mg/dL (Normal) H 05/21/18 00:13 Urine Ketones Negative mg/dL (NEGATIVE) 05/21/18 00:13 Urine Blood 3+ (NEGATIVE) H 05/21/18 00:13 Urine Nitrate Negative (NEGATIVE) 05/21/18 00:13 Urine Bilirubin Negative (NEGATIVE) 05/21/18 00:13 Urine Urobilinogen Normal mg/dL (0.2-1.0) 05/21/18 00:13 Ur Leukocyte Esterase Neg Andrea/uL (Negative) 05/21/18 00:13 Urine WBC (Auto) 17 /hpf (0-5) H 05/21/18 00:13 Urine RBC (Auto) 43 /hpf (0-3) H 05/21/18 00:13 Ur Squamous Epith Cells < 1 /hpf (0-5) 05/21/18 00:13 Ur Random Sodium 67 mmol/L 05/21/18 07:07 Ur Random Potassium 38.7 mmol/L 05/21/18 07:07 Ur Random Phosphorus 47.5 mg/dL 05/21/18 07:07 Urine Magnesium 5.1 mg/dL 05/21/18 07:07 Influenza Typ A,B (EIA) Negative for flu a/b (NEGATIVE) 05/20/18 21:40 - Hospital Course Hospital Course: On admission: This is an 87 year old [place] female with PMH of HTN, new onset Afib, lung nodules, thyroid goiter who presents to ED with worsening SOB, confusion over the past 2 weeks. She is with granddaughter at bedside who is translating. Patient was admitted 04/28 and discharged 05/05 and treated for newly diagnosed Afib w/ RVR. Patient's family agreed w/ comfort care, to keep [place] the [place], possibly hospice. Patient's lack of insurance does not make her a hospice candidate. The decision was made to discharge her and if she is to have increasing symptoms, she is to return as inpatient for care. Patient's son signed POLST in chart; code status decided DNR/DNI. Granddaughter reports that patient has been worsening since discharge and has not been eating or taking medications for the past 4 days. She has been mostly laying in bed, and not her usual preadmission self. Grandaughter reports diarrhea and nausea. ROS unobta inable as pt has been confused for the past few days. Pt was found to be in renal failure and hyperkalemic at 8.7 in the ED. Pt received Duoneb x 3, Calclium gluconate, D50, insulin 10 units, kayexalate 30 gm PO x1, Sodium bicarb 50 meq IVP. Fermin was placed with return of 2200 mL of urine, pt also received 40 mg IVP of lasix. ICU was consulted. Pt admitted to telemetry floor. Hospital course: Pt was found to have left frontal superior hemorrhage on Head CT. Pt was already DNR/DNI with POLST form in EMR, but family decided to place patient the pt on hospice for comfort care. Pt subsequently while on morphine gtt. This is a summary of the hospital course, please see EMR for full details. Discharge Exam - Head Exam Head Exam: NORMAL INSPECTION, NORMOCEPHALIC - Eye Exam Additional comments: not reactive to light, pupils fixed and dilated - Respiratory Exam Additional comments: absent breath sounds - Cardiovascular Exam Cardiovascular Exam: absent: +S1, +S2 Additional comments: absent heart sounds, no pulse. asystole on monitor - Neurological Exam Additional comments: absent corneal reflex - Additional Findings Additional findings: unresponsive to verbal and painful stimuli Discharge Plan - Follow Up Plan Condition: Disposition: WITH WITHOUT AUTOPSY <Crista Tapia - Last Filed: 05/23/18 12:29> Provider - Provider Date of Admission: 05/20/18 23:24 Attending physician: John Ramos MD Consults: 05/21/18 10:16 Social Work Referral Routine Comment: HOSPICE EVAL Physician Instructions: Reason For Exam: DNR DNI Hospital Course - Lab Results Lab Results: Micro Results 05/20/18 20:14 Blood Blood Culture - Preliminary NO GROWTH AFTER 48 HOURS 05/20/18 21:40 Blood Blood Culture - Preliminary NO GROWTH AFTER 48 HOURS 05/21/18 05:52 Nose MRSA Culture (Admit) - Final MRSA NOT DETECTED Most Recent Lab Values WBC 17.2 K/uL (4.8-10.8) H 05/20/18 21:40 RBC 5.85 Mil/uL (3.80-5.20) H 05/20/18 21:40 Hgb 12.5 g/dL (11.0-16.0) 05/20/18 21:40 Hct 41.2 % (34.0-47.0) 05/20/18 21:40 MCV 71.0 fL (81.0-99.0) L 05/20/18 21:40 MCH 21.3 pg (27.0-31.0) L 05/20/18 21:40 MCHC 30.0 g/dL (33.0-37.0) L 05/20/18 21:40 RDW 20.9 % (11.5-14.5) H 05/20/18 21:40 Plt Count 154 K/uL (130-400) 05/20/18 21:40 MPV 9.0 fL (7.2-11.7) 05/20/18 21:40 Neut % (Auto) 86.1 % (50.0-75.0) H 05/20/18 21:40 Lymph % (Auto) 10.7 % (20.0-40.0) L 05/20/18 21:40 [place] % (Auto) 2.8 % (0.0-10.0) 05/20/18 21:40 Eos % (Auto) 0.0 % (0.0-4.0) 05/20/18 21:40 Baso % (Auto) 0.4 % (0.0-2.0) 05/20/18 21:40 Neut # (Auto) 14.8 K/uL (1.8-7.0) H 05/20/18 21:40 Lymph # (Auto) 1.8 K/uL (1.0-4.3) 05/20/18 21:40 [place] # (Auto) 0.5 K/uL (0.0-0.8) 05/20/18 21:40 Eos # (Auto) 0.0 K/uL (0.0-0.7) 05/20/18 21:40 Baso # (Auto) 0.1 K/uL (0.0-0.2) 05/20/18 21:40 PT 13.4 SECONDS (9.7-12.2) H 05/20/18 21:40 INR 1.2 05/20/18 21:40 APTT 31 SECONDS (21-34) 05/20/18 21:40 pO2 35 mm/Hg (30-55) 05/20/18 22:00 VBG pH 7.25 (7.32-7.43) L 05/20/18 22:00 VBG pCO2 42 mmHg (40-60) 05/20/18 22:00 VBG HCO3 17.2 mmol/L 05/20/18 22:00 VBG Total CO2 19.7 mmol/L (22-28) L 05/20/18 22:00 VBG O2 Sat (Calc) 57.3 % (40-65) 05/20/18 22:00 VBG Base Excess -8.5 mmol/L (0.0-2.0) L 05/20/18 22:00 VBG Potassium 7.8 mmol/L (3.6-5.2) H* 05/20/18 22:00 Sodium 138.0 mmol/l (132-148) 05/20/18 22:00 Chloride 101.0 mmol/L (98-107) 05/20/18 22:00 Glucose 155 mg/dl (65-105) H 05/20/18 22:00 Lactate 1.9 mmol/L (0.7-2.1) 05/20/18 22:00 Crit Value Called To Peeweeira 05/20/18 22:00 Crit Value Called By [email or web address] 05/20/18 22:00 Crit Value Read Back Y 05/20/18 22:00 Blood Gas Notified Time 220605/20/18 22:00 Sodium 148 mmol/L (132-148) 05/21/18 07:07 Potassium 4.3 mmol/L (3.6-5.2) 05/21/18 07:07 Chloride 113 mmol/L (98-107) H 05/21/18 07:07 Carbon Dioxide 22 mmol/L (22-30) 05/21/18 07:07 Anion Gap 17 (10-20) 05/21/18 07:07 BUN 133 mg/dL (7-17) H* D 05/21/18 07:07 Creatinine 10.5 mg/dL (0.7-1.2) H* D 05/21/18 07:07 Est GFR ( Amer) 4 05/21/18 07:07 Est GFR (Non-Af Amer) 3 05/21/18 07:07 POC Glucose (mg/dL) 179 mg/dL (65-110) H 05/20/18 21:51 Random Glucose 104 mg/dL (65-105) D 05/21/18 07:07 Calcium 7.5 mg/dl (8.6-10.4) L 05/21/18 07:07 Magnesium 2.7 mg/dL (1.6-2.3) H 05/20/18 21:40 Total Bilirubin 1.0 mg/dL (0.2-1.3) 05/20/18 21:40 AST 30 U/L (14-36) 05/20/18 21:40 ALT 8 U/L (9-52) L D 05/20/18 21:40 Alkaline Phosphatase 87 U/L (38-126) 05/20/18 21:40 Troponin I 0.0780 ng/mL (0.00-0.120) 05/20/18 21:40 NT-Pro-B Natriuret Pep 3020 pg/mL (0-900) H 05/20/18 22:20 Total Protein 8.1 g/dL (6.3-8.3) 05/20/18 21:40 Albumin 4.2 g/dL (3.5-5.0) 05/20/18 21:40 Globulin 3.9 gm/dL (2.2-3.9) 05/20/18 21:40 Albumin/Globulin Ratio 1.1 (1.0-2.1) 05/20/18 21:40 Lipase 507 U/L (23-300) H 05/20/18 21:40 Free T4 1.32 ng/dL (0.78-2.19) 05/21/18 07:07 Thyroxine (T4) 4.67 ug/dL (5.5-11.0) L 05/21/18 07:07 Total T3 1.10 nmol/L (1.49-2.60) L 05/21/18 07:07 TSH 3rd Generation 0.28 mIU/L (0.46-4.68) L 05/20/18 21:40 Venous Blood Potassium 7.8 mmol/L (3.6-5.2) H* 05/20/18 22:00 Urine Color Straw (YELLOW) 05/21/18 00:13 Urine Clarity Clear (Clear) 05/21/18 00:13 Urine pH 6.0 (5.0-8.0) 05/21/18 00:13 Ur Specific [place] 1.010 (1.003-1.030) 05/21/18 00:13 Urine Protein 1+ mg/dL (NEGATIVE) H 05/21/18 00:13 Urine Glucose (UA) 2+ mg/dL (Normal) H 05/21/18 00:13 Urine Ketones Negative mg/dL (NEGATIVE) 05/21/18 00:13 Urine Blood 3+ (NEGATIVE) H 05/21/18 00:13 Urine Nitrate Negative (NEGATIVE) 05/21/18 00:13 Urine Bilirubin Negative (NEGATIVE) 05/21/18 00:13 Urine Urobilinogen Normal mg/dL (0.2-1.0) 05/21/18 00:13 Ur Leukocyte Esterase Neg Andrea/uL (Negative) 05/21/18 00:13 Urine WBC (Auto) 17 /hpf (0-5) H 05/21/18 00:13 Urine RBC (Auto) 43 /hpf (0-3) H 05/21/18 00:13 Ur Squamous Epith Cells < 1 /hpf (0-5) 05/21/18 00:13 Ur Random Sodium 67 mmol/L 05/21/18 07:07 Ur Random Potassium 38.7 mmol/L 05/21/18 07:07 Ur Random Phosphorus 47.5 mg/dL 05/21/18 07:07 Urine Magnesium 5.1 mg/dL 05/21/18 07:07 Influenza Typ A,B (EIA) Negative for flu a/b (NEGATIVE) 05/20/18 21:40 Attending/Attestation - Attestation I have personally seen and examined this patient.: Yes I have fully participated in the care of the patient.: Yes I have reviewed all pertinent clinical information, including history, physical exam and plan: Yes Notes (Text): Patient 1.Renal failure 2.Intracranial bleeding 3.Dementia 4.Afib 5.Hypocoagulable state 6.Lung mass 7.hyperthyroidism
== END 2018-05-22 22:30 | DRG 44 ==
LOC: C.ER 21:14 → C.9E 23:24 → C.9I 05-21 05:40
PROVIDERS: ADMIT Family Medicine; ATTEND Family Medicine
DX: I60.9 Nontraumatic subarachnoid hemorrhage, unspecified (principal); N17.9 Acute kidney failure, unspecified; E87.5 Hyperkalemia; I48.91 Unspecified atrial fibrillation; F03.90 Unspecified dementia, unspecified severity, without behavioral disturbance, psychotic disturbance, mood disturbance, and anxiety; N13.9 Obstructive and reflux uropathy, unspecified; E86.0 Dehydration; E04.9 Nontoxic goiter, unspecified; I10 Essential (primary) hypertension; Z66 Do not resuscitate